=== PATIENT | female | born 1940 | race African-American/Black ===

== ENCOUNTER 2017-12-26 15:10 | Emergency (ER) | payer OTHER ==
[2017-12-26 15:42] VITALS: BP 162/71; PULSE 52; TEMP 98.4; BMI 32.2
--- NOTE | 2017-12-26 15:45 | PDOC ---
Rapid Medical Evaluation Chief Complaint: Weakness Time Seen by Provider: 12/26/17 15:42 Medical Evaluation: Allergies Allergy/AdvReac Type Severity Reaction Status Date / Time No Known Allergies Allergy Verified 12/26/17 15:37 Vital Signs Temp Pulse Resp BP Pulse Ox 98.4 F 52 L 18 162/71 100 12/26/17 15:39 12/26/17 15:39 12/26/17 15:39 12/26/17 15:39 12/26/17 15:39 12/26/17 15:43 The patient presents with a chief complaint of: Cough, feeling tired. Diagnosed with flu over a week ago. Has not followed up with PCP. Also c/o L arm pain. Thinks it may be gas I have performed a brief in-person evaluation of this patient; Pertinent physical exam findings: ambulatory, in no respiratory distress. CTAB. VSS, 100% O2 on room air I have ordered the following: CBC, CMP, Trop, CXR, EKG The patient will proceed to the ED for further evaluation.
== END 2017-12-26 16:06 | disposition left against medical advice (07) ==
LOC: JER 15:10
DX: R05 Cough (principal)
CPT/HCPCS: 99281-25

== ENCOUNTER 2019-01-07 17:28 | Emergency (ER) | payer OTHER ==
[2019-01-07 17:45] VITALS: TEMP 98.1; BMI 30.4
--- NOTE | 2019-01-07 17:49 | PDOC ---
History of Present Illness - General Chief Complaint: Blood Pressure Problem Stated Complaint: HYPERTENSION - History of Present Illness Initial Comments: 01/07/19 20:04 78 yo female with PMH HTN, Hypothyroidism, Hyperlipidemia, presents with complaint of elevated blood pressure of 200/90 and mild frontal headache. She states she was evaluated yesterday at another ER and was given a medication for her blood pressure. She states the pressure was checked again today and was high and with her headache she states that she felt the need for reevaluation. Denies any blurred vision, chest pain, dizziness, nausea, vomiting. Past History - Travel Traveled outside of the country in the last 30 days: No - Past Medical History Allergies/Adverse Reactions: Allergies Allergy/AdvReac Type Severity Reaction Status Date / Time No Known Allergies Allergy Verified 01/07/19 19:30 Home Medications: Ambulatory Orders Fluorometholone 1 drop OD DAILY 01/07/19 Levothyroxine [Synthroid -] 25 mcg PO DAILY 01/07/19 Nebivolol [Bystolic -] 5 mg PO DAILY 01/07/19 Soft Lens Rinse,Store Solution [Saline Sensitive Eyes] 360 ml MC ASDIR 01/07/19 COPD: No HTN: Yes Thyroid Disease: Yes - Surgical History Appendectomy: Yes - Suicide/Smoking/Psychosocial Hx Smoking History: Never smoked Have you smoked in the past 12 months: No Hx Alcohol Use: No Drug/Substance Use Hx: No Substance Use Type: None Review of Systems - Review of Systems Constitutional: No: Chills, Diaphoresis, Fever HEENTM: No: Blurred Vision Respiratory: No: Cough, Shortness of Breath Cardiac (ROS): No: Chest Pain, Edema, Irregular Heart Rate ABD/GI: No: Abdominal Distended, Constipated, Diarrhea : No: Burning, Dysuria, Discharge Musculoskeletal: No: Back Pain Neurological: Yes: Headache. No: Numbness, Paresthesia, Seizure, Weakness, Unsteady Gait *Physical Exam - Vital Signs Last Vital Signs Temp Pulse Resp BP Pulse Ox 98.1 F 46 L 18 200/90 H 98 01/07/19 17:44 01/07/19 17:44 01/07/19 17:44 01/07/19 17:44 01/07/19 17:44 - Physical Exam Comments: 01/07/19 20:08 GEN: A&O, no acute distress HEENT: PERRL, EOMI, moist mucus membranes NECK: Supple, no lymphadenopathy, no carotid bruits HEART: RRR, no murmurs or rubs LUNGS: CTA b/l, no rhonchi or wheezes NEURO: 5/5 strength throughout, sensation in tact throughout, CN II-XII in tact ABDOMEN: Soft, nontender, normoactive bowel sounds EXTREMITIES: 1+ nonpitting edema, 2+ pulses Moderate Sedation - Procedure Monitoring Vital Signs: Procedure Monitoring Vital Signs Temperature 98.1 F 01/07/19 17:44 Pulse Rate 46 L 01/07/19 17:44 Respiratory Rate 18 01/07/19 17:44 Blood Pressure 200/90 H 01/07/19 17:44 O2 Sat by Pulse Oximetry (%) 98 01/07/19 17:44 ED Treatment Course - LABORATORY CBC & Chemistry Diagram: 01/07/19 18:26 01/07/19 18:26 Medical Decision Making - Medical Decision Making 01/07/19 20:10 78 female with PMH as mentioned above and likely poorly controlled HTN presents with b.p. 200/90, and complaint of a mild frontal headache. Home med bystolic has been taken as prescribed, with current heart rate in 40's/ 50s will hold further beta maia/CCB. Will give clonidine patch 0.2 mg and reassess. 01/07/19 21:23 b.p. improved to 175/80's. Will plan for d/c to home with close follow up with Dr. Awad. will instruct patient to call in the AM for appointment as soon as possible and instruct her to leave the clonidine patch on for up to 7 days but to make sure she has an appointment prior to 7 days. *DC/Admit/Observation/Transfer Diagnosis at time of Disposition: Hypertensive emergency, no CHF - Discharge Dispostion Disposition: HOME Condition at time of disposition: Stable Decision to Admit order: No - Referrals Referrals: Jacque Awad MD [Staff Physician] - Call tomorrow - Patient Instructions Printed Discharge Instructions: DI for High Blood Pressure, How to Monitor Your Blood Pressure at Home Additional Instructions: You were seen in the Emergency department for very high blood pressure. You were given a clonidine patch, a medicine to bring down your blood pressure. You should leave this patch on for up to 7 days until you are able to see your primary doctor. You should call first thing in the morning to see your primary doctor as soon as possible for better control of your blood pressure. If you have any severe headaches, vision changes, or new onset weakness, you should return to the emergency department or be evaluated by your doctor. - Post Discharge Activity
[2019-01-07 18:34] LABS: HEMATOCRIT 36.6 % (32.4-45.2); HEMOGLOBIN 12.4 GM/dL (10.7-15.3); MCH 31.9 pg (25.7-33.7); MCHC 33.8 g/dl (32.0-36.0); MEAN CELL VOLUME 94.4 fl (80-96); MEAN PLT VOLUME 10.9 fl (7.5-11.1); PLATELET COUNT 136 K/MM3 (134-434); RBC 3.88 M/mm3 (3.60-5.2); RDW 14.3 % (11.6-15.6); WHITE BLOOD COUNT 4.6 K/mm3 (4.0-10.0)
--- NOTE | 2019-01-07 18:49 | PDOC ---
Attending Attestation - Resident Resident Name: Ilya Khoury - Medical Decision Making 78 years old with relatively new diagnosed hypertension in by systolic with difficulty controlling her pressure over the last few weeks was seen in emergency department yesterday was given 1 by mouth patella discharged home today with very mild frontal headache checks her blood pressure noted to be elevated Symptoms resolving at time of evaluation in the emergency department clonidine patch placed on patient labs sent EKG ordered patient sent to head CT Head CT with no acute pathology labs within normal limits blood pressure now improving 170 systolic Patient advised to call her primary care provider in the morning for follow-up and further blood pressure management Findings, the need for follow-up and strict return instructions discussed patient. <Jeevan Arcos - Last Filed: 01/07/19 21:06> - HPI HPI: CC: Elevated Blood Pressure and Headache The patient is an 78 year old female, with a significant PMH of hypertension, hypothyroid, and hyperlipidemia, who presents to the emergency department today complaining of increased blood pressure and headache for 2 days. Patient was recently diagnosed with hypertension by Dr. Awad (approximately 6 weeks ago), and is taking Nebivolol daily. Patient notes that headache is intermittently present behind both of her eyes. She does note that she uses prescriptive eye drops daily for glaucoma. Patient does report that she was at [facility] yesterday for elevated blood pressure, and was given a medication that she is unsure of and discharged. She endorses lower extremity edema, but notes this has been present for a while. The patient denies chest pain, shortness of breath, and dizziness. Denies generalized weakness and paresthesia. Denies fever, chills, nausea, vomit, diarrhea and constipation. Denies dysuria, frequency, urgency and hematuria. Allergies: NKA Past surgical history: Appendectomy Social history: No reported PCP: Dr. Jacque Awad 01/07/19 19:43 - Physicial Exam PE: Vitals: Triage Vital signs reviewed General Appearance: no acute distress, well nourished well developed, Head: Atraumatic, normocephalic Cardiac: Regular rate and rhythm, no murmurs, no rubs, no gallops, Lungs: Clear to auscultation bilateral, good air movement bilaterally, Extremities: Full range of motion to all extremities, no cyanosis, clubbing, or edema Skin: Warm and dry, no rashes or lesions, no petechiae Neuro: AOX3; Cranial Nerves 2-12 grossly c intact, Strength intact to all extremities, Sensation intact to all extremities, Psych: normal mood, normal affect 01/07/19 19:43 - Medical Decision Making 78 year old female with history of hypertension, hypothyroid, and hyperlipidemia , presents to the ED with elevated blood pressure and intermittent headache for 2 days. Plan: We will obtain lab work (cardiac enzymes), EKG, head CT, and administer Clonidine patch to patient. EXAM: CT head w/o IV contrast IMPRESSION: Mild chronic small vessel ischemic changes. Otherwise negative unenhanced CT of the brain. Reported by: Oscar Jean MD 01/07/2019 19:40 Documentation prepared by KINDRA Baltazar, acting as er medical technician for Jeevan Arcos MD. 01/07/19 21:18 <Annalisa Boudreaux - Last Filed: 01/07/19 21:54> Heart Score/ECG Review - Electrocardiogram EKG: Normal (EKG performed at 17:51:07 demonstrates rate of 45bpm, sinus bradycardia, axis equal to 55, 43, 47. Additional findings include: no T wave inversions, no ST elevations.) <Annalisa Boudreaux - Last Filed: 01/07/19 21:54>
[2019-01-07] MEDS ORDERED: cloNIDine-TTS 0.2 MG/24 HOURS PATCH.TDWK TD ONE (19:00)
[2019-01-07 19:52] LABS: ALBUMIN 3.6 g/dl (3.4-5.0); ALK PHOS 68 U/L (45-117); ANION GAP 5 MMOL/L (8-16); BILIRUBIN,TOTAL 0.5 mg/dL (0.2-1); BLOOD UREA NITROGEN 20 mg/dL (7-18); CALCIUM 8.2 mg/dL (8.5-10.1); CHLORIDE 103 mmol/L (98-107); CO2 30 mmol/L (21-32); CREATININE 1.1 mg/dL (0.55-1.3); GLUCOSE,RANDOM 86 mg/dL (74-106); SGPT/ALT 57 U/L (13-61); SODIUM 138 mmol/L (136-145)
[2019-01-07 19:53] LABS: POTASSIUM 4.9 mmol/L (3.5-5.1); SGOT/AST 39 U/L (15-37)
[2019-01-07 21:42] VITALS: BP 174/92; PULSE 56
--- NOTE | 2019-01-08 12:12 | EKG ---
Test Reason : Blood Pressure : / mmHG Vent. Rate : 045 BPM Atrial Rate : 045 BPM P-R Int : 198 ms QRS Dur : 082 ms QT Int : 502 ms P-R-T Axes : 055 043 047 degrees QTc Int : 434 ms SINUS BRADYCARDIA OTHERWISE NORMAL ECG NO PREVIOUS ECGS AVAILABLE Confirmed by SERAFIN MONTES MD ([id number]) on 01/08/2019 12:11:54 PM Referred By: Confirmed By:SERAFIN MONTES MD
== END 2019-01-07 22:06 | disposition home or self-care (01) ==
LOC: JER 17:28
DX: I16.0 Hypertensive urgency (principal); E78.5 Hyperlipidemia, unspecified; E03.9 Hypothyroidism, unspecified
CPT/HCPCS: 36415; 70450-TC; 80053; 82550; 82553; 84484; 85027; 93005; 93010; 99284-25

== ENCOUNTER 2019-02-22 12:58 | Inpatient (IN) | payer OTHER ==
--- NOTE | 2019-02-22 13:02 | PDOC ---
History of Present Illness - General Stated Complaint: Irregular Heart Beat - History of Present Illness Initial Comments: The pt is an 78F w/ a history of HTN and hypothyroidism who presents for evaluation of generalized weakness for 3 days. The pt was sent from clinic with a report of feeling weak and being hypertensive. The pt reports feeling generalized weakness for 3 days w/ no other identifiable associated symptoms. Pt denies taking her medications today. Denies recent illness/fevers, BINGHAM, vision changes, dizziness, lightheadedness, chest pain, SOB, abdominal pain, N/V/C/D PMH: HTN, hypothyroidism Meds: Bystolic, Synthroid Allergies: Denies SH: Denies x3 02/22/19 13:20 Past History - Past Medical History Allergies/Adverse Reactions: Allergies Allergy/AdvReac Type Severity Reaction Status Date / Time No Known Allergies Allergy Verified 02/22/19 13:11 Home Medications: Ambulatory Orders Levothyroxine [Synthroid -] 25 mcg PO DAILY 01/07/19 Nebivolol [Bystolic -] 5 mg PO DAILY 01/07/19 Aspirin 81 mg PO DAILY 02/22/19 Calcium Carbonate/Vitamin D3 [Calcium 600 + Vit D Tablet] 1 each PO DAILY Cholecalciferol (Vitamin D3) [Vitamin D3] 1,000 unit PO DAILY 02/22/19 Furosemide [Lasix -] 20 mg PO DAILY 02/22/19 Pitavastatin Calcium [Livalo] 4 mg PO DAILY 02/22/19 COPD: No HTN: Yes Thyroid Disease: Yes - Surgical History Appendectomy: Yes - Suicide/Smoking/Psychosocial Hx Smoking History: Never smoked Have you smoked in the past 12 months: No Hx Alcohol Use: No Drug/Substance Use Hx: No Substance Use Type: None Review of Systems - Review of Systems Able to Perform ROS?: Yes Comments:: GENERAL/CONSTITUTIONAL: No fever or chills HEAD, EYES, EARS, NOSE AND THROAT: No change in vision or hearing. No sore throat CARDIOVASCULAR: No chest pain or shortness of breath RESPIRATORY: Denies cough, hemoptysis GASTROINTESTINAL: No nausea, vomiting, diarrhea or constipation GENITOURINARY: No dysuria, frequency, or change in urination MUSCULOSKELETAL: No joint or muscle swelling or pain. No neck or back pain SKIN: No rash NEUROLOGIC: No headache, vertigo, loss of consciousness, or change in strength/ sensation ENDOCRINE: No increased thirst. No abnormal weight change HEMATOLOGIC/LYMPHATIC: No anemia, easy bleeding, or history of blood clots ALLERGIC/IMMUNOLOGIC: No hives or skin allergy 02/22/19 13:01 Is the patient limited Libyan proficient: No *Physical Exam - Vital Signs Vital Signs Temp Pulse Resp BP Pulse Ox 97.5 F L 43 L 20 198/62 H 98 02/22/19 13:11 02/22/19 13:11 02/22/19 13:11 02/22/19 13:11 02/22/19 13:11 02/22/19 13:32 - Physical Exam Comments: GENERAL: Awake, alert, and oriented to person/place/time, in no acute distress HEAD: No signs of trauma, normocephalic, atraumatic EYES: PERRLA, EOMI, sclera anicteric, conjunctiva clear ENT: Hearing grossly normal, nares patent, oropharynx clear without exudates. Moist mucosa LUNGS: No distress, speaks full sentences, clear to auscultation bilaterally HEART: Bradycardic w/ regular rhythm, normal S1 and S2, no murmurs appreciated, peripheral pulses normal and equal bilaterally ABDOMEN: Soft, nontender, normoactive bowel sounds. No guarding, no rebound EXTREMITIES: BLE 1+ edema to ankle; moves all extremities independently NEUROLOGICAL: Cranial nerves II through XII grossly intact. Normal speech, no focal sensorimotor deficits SKIN: Warm, Dry 02/22/19 13:01 ED Treatment Course - LABORATORY CBC & Chemistry Diagram: 02/22/19 13:03 02/22/19 13:03 Medical Decision Making - Medical Decision Making The pt is an 78F w/ a history of HTN and hypothyroidism who presents for evaluation of 3 days of generalized weakness and HTN from clinic ED Course Labs sent ECG w/ sinus bradycardia; HR 39; QTc 433; RI 172; No T-wave inversions or ST elevations/depressions 02/22/19 13:38 No leukocytosis No anemia 02/22/19 14:13 Lytes wnl LFTs wnl Trop I neg No BHAVIN 02/22/19 14:15 TSH wnl 02/22/19 14:22 Hydralazine 25mg PO once for HTN 02/22/19 14:33 Plan for admission for symptomatic bradycardia. At this time pt continues to be A&Ox3, w/o chest pain, SOB, BINGHAM, vision changes, and continues to endorse generalized weakness 02/22/19 14:38 *DC/Admit/Observation/Transfer Diagnosis at time of Disposition: Sinus bradycardia Hypertension Qualifiers: Hypertension type: unspecified Qualified Code(s): I10 - Essential (primary) hypertension Hypothyroidism Qualifiers: Hypothyroidism type: unspecified Qualified Code(s): E03.9 - Hypothyroidism, unspecified - Discharge Dispostion Condition at time of disposition: Good Decision to Admit order: Yes - Referrals Referrals: Jacque Awad MD [Primary Care Provider] - - Patient Instructions - Post Discharge Activity
[2019-02-22 13:42] LABS: BASO % 0.7 % (0-2.0); EOS % 0.7 % (0-4.5); HEMATOCRIT 37.3 % (32.4-45.2); LYMPH % 57.7 % (8-40); MCHC 32.1 g/dl (32.0-36.0); MEAN CELL VOLUME 93.4 fl (80-96); MEAN PLT VOLUME 9.4 fl (7.5-11.1); MONO % 11.4 % (3.8-10.2); NEUT % 29.5 % (42.8-82.8); PLATELET COUNT 106 K/MM3 (134-434); RDW 14.3 % (11.6-15.6); WHITE BLOOD COUNT 3.2 K/mm3 (4.0-10.0)
[2019-02-22 14:15] LABS: ALBUMIN 3.2 g/dl (3.4-5.0); ALK PHOS 54 U/L (45-117); ANION GAP 5 MMOL/L (8-16); BILIRUBIN,TOTAL 0.4 mg/dL (0.2-1); BLOOD UREA NITROGEN 21 mg/dL (7-18); CHLORIDE 104 mmol/L (98-107); CO2 30 mmol/L (21-32); GLUCOSE,RANDOM 91 mg/dL (74-106); POTASSIUM 3.5 mmol/L (3.5-5.1); SGOT/AST 23 U/L (15-37); SGPT/ALT 26 U/L (13-61); SODIUM 140 mmol/L (136-145); TOT PROT 6.4 g/dl (6.4-8.2)
[2019-02-22] MEDS ORDERED: hydrALAZINE HCL 25 MG TABLET (FP) PO ONE (14:29)
--- NOTE | 2019-02-22 14:45 | PDOC ---
Attending Attestation - Resident Resident Name: Robson Olvera - ED Attending Attestation I have performed the following: I have examined & evaluated the patient, The case was reviewed & discussed with the resident, I agree w/resident's findings & plan - HPI HPI: 02/22/19 14:47 78 year old female, with past medical history of HTN, hypothyroidism, presenting with generalized malaise/weakness x 3 days. No cp or sob, dizziness, visual disturbances. No recent illnesses. 02/22/19 15:05 - Physicial Exam PE: 02/22/19 14:47 NAD, well appearing, EOMI, PERRL, nl conjunctiva, anicteric; neck supple. lungs clear, +bradycardic, no murmurs. abdomen soft nontender. FISCHER x4, no focal neuro deficits. +bilateral pitting peripheral edema. normal color for ethnicity, cool and dry to palp. no rash - Medical Decision Making 02/22/19 14:52 See HPI for details Vital signs reviewed, +bradycardia. hypertensive, mental status normal. DDx. arrhythmia, sinus bradycardia, SA node dysfunction, ACS, metabolic/ electrolyte derangements, anemia, infection, lyme/carditis. , tick borne illness. Prior notes reviewed, including admissions, discharges and consultations. laboratory results and imaging reviewed, basic labs and lytes wnl, notable for mild leukopenia with lymphocytic shift of unclear etiology. no fever or systemic sx. thyroid levels normal CXR_rt hemidiaphragm, effusion vs atelectasis; no cp or sob sx, unlikely infectious. Cardiac panel_neg trop EKG sinus bradycardia at 39 bpm, no interval abnormalities, narrow QRS, ST and T wave segments and morphology normal. ED course - sinus tele on monitor. no symptoms - lyme/tick panel, babasia workup, for possible etiology of lymphocytic shift and weakness/ bradycardia - avoid BB, on bystolic - cards cs with Dr Jimenez. admit tele for bradycardia, admit to Dr Awad service. 02/22/19 15:06 Heart Score/ECG Review #1 ECG reviewed & interpreted by me at: 13:10 General ECG Interpretation: Sinus Rhythm, Normal Intervals Compared to previous ECG there are: Changes noted 02/22/19 14:57 EKG sinus bradycardia at 39 bpm, no interval abnormalities, narrow QRS, ST and T wave segments and morphology normal.
[2019-02-22] MEDS ORDERED: hydrALAZINE HCL 25 MG TABLET (FP) ONE (14:51)
--- NOTE | 2019-02-22 15:38 | CON.CARD ---
Consult Consult Specialty:: Cardiology - History of Present Illness Chief Complaint: Fatigue History of Present Illness: 78 F with hypothyroidism and HTN. 3 weeks of cough, congestion developed. has noted fatigue, weakness without dizziness, dyspnea of syncope and she went to her PCP and noted to have sinus bradycardia. She takes symthroid and bystolic which are not new medications. Currently comfortable in the ER. Telemetry shows sinus abel with HR 40. - History Source History Provided By: Patient Limitations to Obtaining History: No Limitations - Past Medical History Cardio/Vascular: Yes: HTN - Alcohol/Substance Use Hx Alcohol Use: No - Smoking History Smoking history: Never smoked Have you smoked in the past 12 months: No Home Medications - Allergies Allergies/Adverse Reactions: Allergies Allergy/AdvReac Type Severity Reaction Status Date / Time No Known Allergies Allergy Verified 02/22/19 13:11 - Home Medications Home Medications: Ambulatory Orders Levothyroxine [Synthroid -] 25 mcg PO DAILY 01/07/19 Nebivolol [Bystolic -] 5 mg PO DAILY 01/07/19 Aspirin 81 mg PO DAILY 02/22/19 Calcium Carbonate/Vitamin D3 [Calcium 600 + Vit D Tablet] 1 each PO DAILY Cholecalciferol (Vitamin D3) [Vitamin D3] 1,000 unit PO DAILY 02/22/19 Furosemide [Lasix -] 20 mg PO DAILY 02/22/19 Pitavastatin Calcium [Livalo] 4 mg PO DAILY 02/22/19 Review of Systems - Review of Systems Constitutional: reports: Weakness Eyes: reports: No Symptoms HENT: reports: No Symptoms Cardiovascular: denies: Chest Pain, Palpitations, Shortness of Breath Respiratory: reports: Cough. denies: SOB on Exertion Gastrointestinal: denies: Abdominal Pain, Bloating Neurological: reports: No Symptoms Endocrine: reports: No Symptoms Vital Signs: Vital Signs Temperature 97.5 F L 02/22/19 13:11 Pulse Rate 44 L 02/22/19 14:18 Respiratory Rate 20 02/22/19 13:11 Blood Pressure 179/70 H 02/22/19 14:56 O2 Sat by Pulse Oximetry (%) 98 02/22/19 13:11 Constitutional: Yes: Well Nourished, No Distress, Calm Eyes: Yes: Conjunctiva Clear, EOM Intact HENT: Yes: Atraumatic, Normocephalic Neck: Yes: Supple, Trachea Midline Respiratory: Yes: Regular, CTA Bilaterally Gastrointestinal: Yes: Normal Bowel Sounds, Soft Cardiovascular: Yes: Regular Rate and Rhythm, Bradycardia JVD: No Carotid Bruit: No PMI: Non-Displaced Heart Sounds: Yes: S1, S2 Murmur: No: Systolic Murmur, Diastolic Murmur Edema: No - Other Data Labs, Other Data: CBC, BMP 02/22/19 13:03 02/22/19 13:03 Troponin, BNP 02/22/19 13:03 Troponin I < 0.02 Troponin, BNP 02/22/19 13:03 Troponin I < 0.02 Laboratory Tests 02/22/19 13:03 TSH 1.76 Free T4 0.77 Sinus bradycardia, normal axis and interval. Problem List - Problems (1) Sinus bradycardia Code(s): R00.1 - BRADYCARDIA, UNSPECIFIED Assessment/Plan 78 F HTN hypothyroid with 3 weeks of upper repiratory symptoms. 3 days of fatigue. ECG shows marked sinus bradycardia. With bedside leg raise exercises HR promptly increased to 60 BPM. Low suspicion that resting bradycardia is resulting in these symptoms, however will monitor on telemetry for 24 hours. Discontinue Bystolic and avoid any further AV johnathan blocking agents. Check echocardiogram If she needs antihypertensive therapy, use alternate medications-ARB/Amlodipine/ nifidipine.
--- NOTE | 2019-02-22 15:58 | EKG ---
Test Reason : Blood Pressure : / mmHG Vent. Rate : 039 BPM Atrial Rate : 039 BPM P-R Int : 172 ms QRS Dur : 066 ms QT Int : 538 ms P-R-T Axes : 054 032 048 degrees QTc Int : 433 ms MARKED SINUS BRADYCARDIA ABNORMAL ECG WHEN COMPARED WITH ECG OF 07-JAN-2019 17:51, NO SIGNIFICANT CHANGE WAS FOUND Confirmed by SANDEEP COTO MD ([id number]) on 02/22/2019 3:58:25 PM Referred By: Confirmed By:SANDEEP COTO MD
--- NOTE | 2019-02-22 16:34 | HP ---
Admitting History and Physical - Admission Chief Complaint: came in from PCP office for bradycardia History of Present Illness: 78 F with hypothyroidism and HTN. and 3 weeks of cough, congestion and then went to her PCP office noticed to have bradycardia and was sent to the ER. She takes synthroid and bystolic which are not new medications. Currently comfortable in the ER. Telemetry shows sinus abel with HR 40. History Source: Patient, Medical Record - Past Medical History Cardiovascular: Yes: HTN - Smoking History Smoking history: Never smoked Have you smoked in the past 12 months: No - Alcohol/Substance Use Hx Alcohol Use: No Home Medications - Allergies Allergies/Adverse Reactions: Allergies Allergy/AdvReac Type Severity Reaction Status Date / Time No Known Allergies Allergy Verified 02/22/19 13:11 - Home Medications Home Medications: Ambulatory Orders Levothyroxine [Synthroid -] 25 mcg PO DAILY 01/07/19 Nebivolol [Bystolic -] 5 mg PO DAILY 01/07/19 Aspirin 81 mg PO DAILY 02/22/19 Calcium Carbonate/Vitamin D3 [Calcium 600 + Vit D Tablet] 1 each PO DAILY Cholecalciferol (Vitamin D3) [Vitamin D3] 1,000 unit PO DAILY 02/22/19 Furosemide [Lasix -] 20 mg PO DAILY 02/22/19 Pitavastatin Calcium [Livalo] 4 mg PO DAILY 02/22/19 Review of Systems - Review of Systems Respiratory: reports: No Symptoms Gastrointestinal: reports: No Symptoms Genitourinary: reports: No Symptoms Physical Examination Vital Signs: Vital Signs Temperature 97.5 F L 02/22/19 13:11 Pulse Rate 44 L 02/22/19 14:18 Respiratory Rate 20 02/22/19 13:11 Blood Pressure 179/70 H 02/22/19 14:56 O2 Sat by Pulse Oximetry (%) 98 02/22/19 13:11 Constitutional: Yes: Calm Cardiovascular: Yes: Regular Rate and Rhythm, S1, S2 Respiratory: Yes: CTA Bilaterally Gastrointestinal: Yes: Normal Bowel Sounds, Soft Edema: No Labs: CBC, BMP 02/22/19 13:03 02/22/19 13:03 Imaging - Results X-ray: Report Reviewed Problem List - Problems (1) Sinus bradycardia Assessment/Plan: observation telemetry echo cardiology consult noted Code(s): R00.1 - BRADYCARDIA, UNSPECIFIED (2) Hypertension Assessment/Plan: stop all AV johnathan blocking agents hydralazine given inc bun will not use diuretics Code(s): I10 - ESSENTIAL (PRIMARY) HYPERTENSION Qualifiers: Hypertension type: unspecified Qualified Code(s): I10 - Essential (primary ) hypertension (3) Hypothyroidism Assessment/Plan: tsh is ok synthroid Code(s): E03.9 - HYPOTHYROIDISM, UNSPECIFIED Qualifiers: Hypothyroidism type: unspecified Qualified Code(s): E03.9 - Hypothyroidism , unspecified
[2019-02-22 18:44] VITALS: BMI 30.7
[2019-02-22] MEDS: hydrALAZINE HCL 25 MG TABLET (FP) PO SCH (21:41)
[2019-02-22] MEDS: HEPARIN NA (PORCINE) 5,000 UNITS/ML 1ML VIAL SQ SCH (21:41)
[2019-02-22] MEDS: ATORVASTATIN CA 20 MG TABLET (FP) PO SCH (21:41)
[2019-02-23] MEDS: LEVOTHYROXINE NA 25 MCG TABLET (FP) PO SCH (06:14)
[2019-02-23 07:48] LABS: INR 0.93 (0.83-1.09)
[2019-02-23 07:50] LABS: ACTIVATED PTT 47.1 SECONDS (25.2-36.5)
[2019-02-23 08:03] LABS: HEMATOCRIT 33.9 % (32.4-45.2); HEMOGLOBIN 11.1 GM/dL (10.7-15.3); MCH 30.2 pg (25.7-33.7); MCHC 32.7 g/dl (32.0-36.0); MEAN CELL VOLUME 92.4 fl (80-96); MEAN PLT VOLUME 9.9 fl (7.5-11.1); PLATELET COUNT 104 K/MM3 (134-434); RBC 3.67 M/mm3 (3.60-5.2); RDW 14.1 % (11.6-15.6); WHITE BLOOD COUNT 2.8 K/mm3 (4.0-10.0)
[2019-02-23 08:13] LABS: ALBUMIN 2.8 g/dl (3.4-5.0); ALK PHOS 44 U/L (45-117); ANION GAP 5 MMOL/L (8-16); BILIRUBIN,TOTAL 0.4 mg/dL (0.2-1); BLOOD UREA NITROGEN 15 mg/dL (7-18); CALCIUM 7.9 mg/dL (8.5-10.1); CHLORIDE 106 mmol/L (98-107); CO2 31 mmol/L (21-32); CREATININE 0.8 mg/dL (0.55-1.3); GLUCOSE,RANDOM 85 mg/dL (74-106); MAGNESIUM 2.4 mg/dL (1.8-2.4); PHOSPHOROUS 2.2 mg/dL (2.5-4.9); POTASSIUM 3.8 mmol/L (3.5-5.1); SGOT/AST 18 U/L (15-37); SGPT/ALT 22 U/L (13-61); SODIUM 142 mmol/L (136-145); TOT PROT 5.6 g/dl (6.4-8.2)
--- NOTE | 2019-02-23 09:44 | PN ---
Progress Note, Physician - Current Medication List Current Medications: Active Medications Amlodipine Besylate (Norvasc -) 10 mg PO DAILY [facility] Atorvastatin Calcium (Lipitor -) 20 mg PO HS [facility] Last Admin: 02/22/19 21:41 Dose: 20 mg Heparin Sodium (Porcine) (Heparin -) 5,000 unit SQ BID [facility] Last Admin: 02/22/19 21:41 Dose: 5,000 unit Hydralazine HCl (Apresoline -) 25 mg PO BID [facility] Last Admin: 02/22/19 21:41 Dose: 25 mg Levothyroxine Sodium (Synthroid -) 25 mcg PO DAILY@0700 [facility] Last Admin: 02/23/19 06:14 Dose: 25 mcg - Objective Vital Signs: Vital Signs Temperature 98.0 F 02/23/19 01:00 Pulse Rate 51 L 02/23/19 09:00 Respiratory Rate 18 02/23/19 09:00 Blood Pressure 175/70 H 02/23/19 09:00 O2 Sat by Pulse Oximetry (%) 97 02/22/19 17:10 Cardiovascular: Yes: Bradycardia, S1, S2 Respiratory: Yes: Regular, CTA Bilaterally Gastrointestinal: Yes: Normal Bowel Sounds, Soft Labs: CBC, BMP 02/23/19 06:00 02/23/19 06:00 INR, PTT INR 0.93 (0.83-1.09) 02/23/19 06:00 Problem List - Problems (1) Sinus bradycardia Assessment/Plan: Improved off b-blockers -monitor on tele -echo Code(s): R00.1 - BRADYCARDIA, UNSPECIFIED (2) Pancytopenia Assessment/Plan: Laboratory Tests 02/22/19 02/23/19 13:03 06:00 WBC 3.2 L 2.8 L Plt Count 106 L D 104 L Neutrophils % (Manual) 37.7 L Monocytes % (Manual) 13 H check previous hem consult Code(s): D61.818 - OTHER PANCYTOPENIA (3) Hypertension Assessment/Plan: Vital Signs Period Temp Pulse Resp BP Sys/Hassan Pulse Ox Last 24 Hr 97.5 F-98.2 F 43-57 18-20 175-207/62-90 97-98 Increase hydralazine 50 bid amlodipine 10 Code(s): I10 - ESSENTIAL (PRIMARY) HYPERTENSION Qualifiers: Hypertension type: unspecified Qualified Code(s): I10 - Essential (primary ) hypertension (4) Hypothyroidism Assessment/Plan: -Tsh nl Code(s): E03.9 - HYPOTHYROIDISM, UNSPECIFIED Qualifiers: Hypothyroidism type: unspecified Qualified Code(s): E03.9 - Hypothyroidism , unspecified (5) Weakness Assessment/Plan: monito Code(s): R53.1 - WEAKNESS
[2019-02-23] MEDS: hydrALAZINE HCL 25 MG TABLET (FP) PO SCH (10:44)
[2019-02-23] MEDS: amLODIPine BESYLATE 10 MG TABLET (FP) PO SCH (10:44)
[2019-02-23] MEDS: HEPARIN NA (PORCINE) 5,000 UNITS/ML 1ML VIAL SQ SCH ×2 (10:44→22:14)
--- NOTE | 2019-02-23 11:02 | PN ---
Progress Note (short form) - Note Progress Note: PULMONARY CONSULTATION DICTATED 02/23/19 IMP SYMTOMATIC BRADYCARDIA URI ELEVATED R IRMA-DIAPHRAGM HTN HYPOTHYROID THROMBOCYTOPENIA PLAN BP MEDS PER CARDIOLOGY TELEMETRY MONITORING CHEST CT MONITOR BP MONITOR CBC,PLT CT DR REID Problem List - Problems (1) Weakness Code(s): R53.1 - WEAKNESS (2) Hypertension Code(s): I10 - ESSENTIAL (PRIMARY) HYPERTENSION Qualifiers: Hypertension type: unspecified Qualified Code(s): I10 - Essential (primary ) hypertension (3) Hypothyroidism Code(s): E03.9 - HYPOTHYROIDISM, UNSPECIFIED Qualifiers: Hypothyroidism type: unspecified Qualified Code(s): E03.9 - Hypothyroidism , unspecified (4) Sinus bradycardia Code(s): R00.1 - BRADYCARDIA, UNSPECIFIED (5) URI (upper respiratory infection) Code(s): J06.9 - ACUTE UPPER RESPIRATORY INFECTION, UNSPECIFIED (6) Elevated hemidiaphragm Code(s): J98.6 - DISORDERS OF DIAPHRAGM (7) Thrombocytopenia Code(s): D69.6 - THROMBOCYTOPENIA, UNSPECIFIED
[2019-02-23 11:37] LABS: ANISOCYTOSIS 0; MACROCYTOSIS 1+; OVALOCYTE 1+; PLATELET ESTIMATE DECREASED
--- NOTE | 2019-02-23 12:58 | ECHO ---
Name: GREGG TRENT Exam:Adult Echocardiogram Study Date: 02/23/2019 09:11 AM Age: 78 yrs Reason For Study: WALL MOTION ABNORMALITY Height: 57 in Weight: 148 lb BSA: 1.6 m2 MMode/2D Measurements & Calculations IVSd: 0.76 cm Ao root diam: 2.6 cm LVIDd: 4.3 cm LA dimension: 3.2 cm LVIDs: 2.7 cm LVPWd: 0.75 cm EDV(Teich): 82.0 ml LVOT diam: 1.8 cm ESV(Teich): 27.3 ml TAPSE: 2.3 cm Doppler Measurements & Calculations MV E max jhonny: 71.7 cm/sec Ao V2 max: 159.0 cm/sec MV A max jhonny: 24.7 cm/sec Ao max P.1 mmHg MV E/A: 2.9 Ao V2 mean: 103.7 cm/sec MV dec time: 0.22 sec Ao mean P.8 mmHg Ao V2 VTI: 36.9 cm DONALD(I,D): 1.8 cm2 DONALD(V,D): 1.8 cm2 LV V1 max P.2 mmHg MR max jhonny: 427.2 cm/sec LV V1 mean P.6 mmHg MR max P.7 mmHg LV V1 max: 114.5 cm/sec LV V1 mean: 75.6 cm/sec LV V1 VTI: 26.1 cm SV(LVOT): 66.2 ml TR max jhonny: 230.9 cm/sec TR max P.7 mmHg Med Peak E' Jhonny: 5.1 cm/sec Med E/e': 14.2 Lat Peak E' Jhonny: 4.7 cm/sec Lat E/e': 15.3 Procedure A two-dimensional transthoracic echocardiogram with color flow and Doppler was performed. Left Ventricle The left ventricular size, thickness and function are normal. The left ventricular ejection fraction is normal. Left Ventricular Filling pattern is normal for age. The left ventricular wall motion is jordy l. Right Ventricle The right ventricle is normal in size and function. Atria Normal left and right atrial size and function. Mitral Valve There is mild mitral valve thickening. There is no mitral valve stenosis. There is moderate mitral regurgitation. Tricuspid Valve There is mild tricuspid valve thickening. There is no tricuspid stenosis. There is severe tricuspid regurgitation. Right ventricular systolic pressure is normal. Aortic Valve The aortic valve is not well visualized. No hemodynamically significant valvular aortic stenosis. No aortic regurgitation is present. Pulmonic Valve The pulmonic valve is not well visualized. There is no pulmonic valvular stenosis. Mild pulmonic valv ular regurgitation. Great Vessels The aortic root is normal size. Pericardium/Pleura There is no pericardial effusion. Interpretation Summary The left ventricular size, thickness and function are normal The left ventricular ejection fraction is normal. The left ventricular wall motion is normal. There is moderate mitral regurgitation. There is severe tricuspid regurgitation. Right ventricular systolic pressure is normal. Left Ventricular Filling pattern is normal for age. MD Min Ledezma 02/23/2019 12:57 PM
--- NOTE | 2019-02-23 13:35 | CONSULT ---
Consultation: HEMATOLOGY/ONCOLOGY CONSULTATION CONSULT REQUEST: We have been asked to medically evaluate this patient for thrombocytopenia HISTORY OF PRESENT ILLNESS: 78 year old pleasant female with a history of hypertension and hypothyroidism presented to the hospital for 3 days of malaise and weakness. Reports it started after a particularly strenuous day at [employer], where she reports she felt exhausted after doing too much activity. Reports that after this incident she continued to feel tired and never fully recovered to a baseline level of energy. Reports she takes medication for hypothyroidism but occasionally misses doses. Reports that this is the first time she is feeling this way. In the ED, patient was found to be hypertensive and bradycardic. Currently denies chest pain, shortness of breath, nausea, vomiting, diarrhea, fevers, chills. Denies recent travel or sick contacts. Smoking: never Alcohol: never Drugs: never Cancer hx: none Family Hx: patient has 2 sons, one with colon cancer and stroke, other healthy. 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 Formerly from [facility], last visited march of 2018 REVIEW OF SYSTEMS: CONSTITUTIONAL: generalized weakness Absent: fever, chills, diaphoresis, malaise, loss of appetite, weight change HEENT: Absent: rhinorrhea, nasal congestion, throat pain, throat swelling, difficulty swallowing, mouth swelling, ear pain, eye pain, visual changes CARDIOVASCULAR: Absent: chest pain, syncope, palpitations, irregular heart rate, lightheadedness , peripheral edema RESPIRATORY: Absent: cough, shortness of breath, dyspnea with exertion, orthopnea, wheezing, stridor, hemoptysis GASTROINTESTINAL: Absent: abdominal pain, abdominal distension, nausea, vomiting, diarrhea, constipation, melena, hematochezia GENITOURINARY: Absent: dysuria, frequency, urgency, hesitancy, hematuria, flank pain, genital pain MUSCULOSKELETAL: Absent: myalgia, arthralgia, joint swelling, back pain, neck pain SKIN: Absent: rash, itching, pallor HEMATOLOGIC/IMMUNOLOGIC: Absent: easy bleeding, easy bruising, lymphadenopathy, frequent infections ENDOCRINE: Absent: unexplained weight gain, unexplained weight loss, heat intolerance, cold intolerance NEUROLOGIC: Absent: headache, focal weakness or paresthesias, dizziness, unsteady gait, seizure, mental status changes, bladder or bowel incontinence PSYCHIATRIC: Absent: anxiety, depression, suicidal or homicidal ideation, hallucinations. PHYSICAL EXAMINATION Vital Signs - 24 hr 02/22/19 02/22/19 02/22/19 14:18 14:56 17:10 Temperature Pulse Rate Pulse Rate [ 44 L 54 L Apical] Respiratory 18 Rate Blood Pressure Blood Pressure 179/70 H 207/77 H [Left Arm] O2 Sat by Pulse 97 Oximetry (%) 02/22/19 02/22/19 02/23/19 18:29 21:36 01:00 Temperature 98.2 F 97.7 F 98.0 F Pulse Rate 52 L 50 L 57 L Pulse Rate [ Apical] Respiratory 18 18 18 Rate Blood Pressure 182/78 H 190/89 H 190/72 H Blood Pressure [Left Arm] O2 Sat by Pulse Oximetry (%) 02/23/19 02/23/19 03:45 09:00 Temperature Pulse Rate 54 L 51 L Pulse Rate [ Apical] Respiratory 18 18 Rate Blood Pressure 180/90 H 175/70 H Blood Pressure [Left Arm] O2 Sat by Pulse Oximetry (%) GENERAL: A&Ox3, no acute distress EYES: PERRLA, EOMI ENT: Moist mucus membranes NECK: No JVD, no lymphadenopathy LUNGS: CTA, no wheezes HEART: bradycardic, no murmurs BREAST: no masses or nodules palpated ABDOMEN: Soft, nontender, BS present MUSCULOSKELETAL: No CVA Tenderness EXTREMITIES: 2+ pulses, 1+ pitting edema bilaterally NEUROLOGICAL: Cranial nerves II-XII intact. No focal deficits Laboratory Results - last 24 hr 02/22/19 02/22/19 02/22/19 13:03 13:03 13:03 WBC 3.2 L RBC 4.00 Hgb 12.0 Hct 37.3 MCV 93.4 MCH 30.0 MCHC 32.1 RDW 14.3 Plt Count 106 L D MPV 9.4 D Absolute Neuts (auto) 0.9 L Neutrophils % 29.5 L Neutrophils % (Manual) Band Neutrophils % Lymphocytes % 57.7 H Lymphocytes % (Manual) Monocytes % 11.4 H Monocytes % (Manual) Eosinophils % 0.7 Eosinophils % (Manual) Basophils % 0.7 Basophils % (Manual) Myelocytes % (Man) Promyelocytes % (Man) Blast Cells % (Manual) Nucleated RBC % 0 Metamyelocytes Manual Slide Review Cancelled Hypochromia Platelet Estimate Polychromasia Poikilocytosis Anisocytosis Microcytosis Macrocytosis Ovalocytes PT with INR INR PTT (Actin FS) Sodium 140 Potassium 3.5 Chloride 104 Carbon Dioxide 30 Anion Gap 5 L BUN 21 H Creatinine 1.0 Creat Clearance w eGFR 53.35 Random Glucose 91 Calcium 8.0 L Phosphorus Magnesium Total Bilirubin 0.4 AST 23 ALT 26 Alkaline Phosphatase 54 Troponin I < 0.02 Total Protein 6.4 Albumin 3.2 L Vitamin B12 TSH 1.76 Free T4 0.77 02/23/19 02/23/19 02/23/19 06:00 06:00 06:00 WBC 2.8 L RBC 3.67 Hgb 11.1 Hct 33.9 MCV 92.4 MCH 30.2 MCHC 32.7 RDW 14.1 Plt Count 104 L MPV 9.9 Absolute Neuts (auto) Neutrophils % Neutrophils % (Manual) 37.7 L Band Neutrophils % 1.0 Lymphocytes % Lymphocytes % (Manual) 35.7 Monocytes % Monocytes % (Manual) 13 H Eosinophils % Eosinophils % (Manual) 3.1 Basophils % Basophils % (Manual) 0.0 Myelocytes % (Man) 0 Promyelocytes % (Man) 0 Blast Cells % (Manual) 0 Nucleated RBC % 0 Metamyelocytes 0 Manual Slide Review Hypochromia 0 Platelet Estimate Decreased Polychromasia 0 Poikilocytosis 0 Anisocytosis 0 Microcytosis 0 Macrocytosis 1+ Ovalocytes 1+ PT with INR 11.00 INR 0.93 PTT (Actin FS) 47.1 H Sodium 142 Potassium 3.8 Chloride 106 Carbon Dioxide 31 Anion Gap 5 L BUN 15 Creatinine 0.8 Creat Clearance w eGFR 69.02 Random Glucose 85 Calcium 7.9 L Phosphorus 2.2 L Magnesium 2.4 Total Bilirubin 0.4 AST 18 ALT 22 Alkaline Phosphatase 44 L Troponin I Total Protein 5.6 L Albumin 2.8 L Vitamin B12 524 TSH Free T4 Active Medications Generic Name Dose Route Start Last Admin Trade Name Freq PRN Reason Stop Dose Admin Amlodipine Besylate 10 mg 02/23/19 10:00 02/23/19 10:44 Norvasc - PO 10 mg DAILY [facility] Administration Atorvastatin Calcium 20 mg 02/22/19 22:00 02/22/19 21:41 Lipitor - PO 20 mg HS [facility] Administration Heparin Sodium (Porcine) 5,000 unit 02/22/19 22:00 02/23/19 10:44 Heparin - SQ 5,000 unit BID [facility] Administration Hydralazine HCl 50 mg 02/23/19 12:36 Apresoline - PO BID [facility] Levothyroxine Sodium 25 mcg 02/23/19 07:00 02/23/19 06:14 Synthroid - PO 25 mcg DAILY@0700 [facility] Administration Current Medications Amlodipine Besylate (Norvasc -) 10 mg PO DAILY [facility] Last Admin: 02/23/19 10:44 Dose: 10 mg Atorvastatin Calcium (Lipitor -) 20 mg PO HS [facility] Last Admin: 02/22/19 21:41 Dose: 20 mg Heparin Sodium (Porcine) (Heparin -) 5,000 unit SQ BID [facility] Last Admin: 02/23/19 10:44 Dose: 5,000 unit Hydralazine HCl (Apresoline -) 50 mg PO BID [facility] Levothyroxine Sodium (Synthroid -) 25 mcg PO DAILY@0700 [facility] Last Admin: 02/23/19 06:14 Dose: 25 mcg ASSESSMENT/PLAN: 78 year old pleasant female with a history of hypertension and hypothyroidism presented to the hospital for 3 days of malaise and weakness. We are called to evaluate thrombocytopenia. Pancytopenia: patient has a reduced white count, platelets of 104 after presenting with 134, and mild anemia. There could be numerous etiologies given that patient had normal platelet count 2 months ago -will look at blood smear -ordered POLY, reticulocytes -Ultrasound liver/spleen for congestive hypersplenism, which could result in decreased platelets -heparin antibodies ordered, although lower on differential -also consider effect of hydralazine in causing pancytopenia, which is the reason we are ordering POLY, consider switching to alternative antihypertensive -as per cardiology, "If she needs antihypertensive therapy, use alternate medications-ARB/Amlodipine/nifidipine." -consider testing HIV -patient is now neutropenic -echo - severe tricuspid regurgitation -B12/folate ordered Alf Schneider, PGY2 Discussed with Dr. Hollie Berumen: We will continue to follow the patient. Thank you for this consultative opportunity. Visit type - Emergency Visit Emergency Visit: No - New Patient This patient is new to me today: Yes Date on this admission: 02/23/19 - Critical Care Critical Care patient: No
--- NOTE | 2019-02-23 13:36 | CONS ---
DATE OF CONSULTATION: 02/23/2019 REFERRING PHYSICIAN: Ethan Bae MD HISTORY OF PRESENT ILLNESS: The patient is an 78-year-old black female with a past medical history of hypertension, hypothyroidism, admitted to [facility] with complaint of fatigue, weakness, dizziness, syncope, with shortness of breath. Patient went to her primary care doctors office, was noted to be bradycardic. She was transferred to [facility] with the above, noted initially to be bradycardic with a rate of 39-40. Patient was evaluated by for Cardiology who felt that bradycardia was most likely secondary to beta-blockers, which were discontinued. Patient states that for approximately 3 weeks prior to admission, she started developing a cough, chest congestion, and fatigue. She also states that she denied any fever or chills. She states that cough is productive of yellowish sputum. Denies any shortness of breath, hemoptysis, weight loss, or night sweats. There is no history of COPD or asthma. SOCIAL HISTORY: She is a nonsmoker. She is a retired RN. There is no history of recent travel. PAST MEDICAL HISTORY: Again includes hypertension, hypothyroidism. REVIEW OF SYSTEMS: Positive for weakness. Positive for cough. No chest pain, no palpitations, no chest congestion, no hemoptysis, no abdominal pain. Positive mild lower extremity edema. CURRENT MEDICATIONS: Include Norvasc, Apresoline, Lipitor, and Synthroid. PHYSICAL EXAMINATION: General: The patient is an elderly black female, awake, alert, in no acute distress. Vital signs: She is currently afebrile, heart rate is 51, blood pressure is 175/70, respiratory rate 18, O2 saturation is 97% on room air. HEENT: Head is normocephalic, atraumatic. Neck: Supple. Heart: Bradycardic with S1, S2. Chest: Clear. Abdomen: Soft. Bowel sounds positive. Extremities: No cyanosis or edema. LABORATORIES: WBC is 2.8, hemoglobin 11.1, hematocrit 33.9, platelet count of 104,000, thrombocytopenia. INR is 0.93. Chemistries: BUN 15, creatinine 0.8, phosphorus 2.2. Chest x-ray with elevated right hemidiaphragm, and some fluid atelectasis to right base and mammillation of the left hemidiaphragm. IMPRESSION: 1. Weakness, fatigue likely secondary to symptomatic bradycardia. 2. Recent upper respiratory infection. 3. Elevated right hemidiaphragm likely chronic. No prior x-rays for comparison. 4. Hypertension. 5. Hypothyroidism. 6. Thrombocytopenia. PLAN: Continue blood pressure medications, hypertensive medications as per Cardiology, continue telemetry monitoring, obtain chest CT to further evaluate right hemidiaphragm, monitor blood pressure, monitor CBC with platelets. ERICA REID M.D. [id number]
--- NOTE | 2019-02-23 14:32 | PN ---
Progress Note, Physician Chief Complaint: cardiology FU Telem NSR no arrhythmia or pauses With Ambulation, HR improves to 80 BPM History of Present Illness: 78 F with hypothyroidism and HTN. 3 weeks of cough, congestion developed. has noted fatigue, weakness without dizziness, dyspnea of syncope and she went to her PCP and noted to have sinus bradycardia. She takes symthroid and bystolic which are not new medications. Currently comfortable in the ER. Telemetry shows sinus abel with HR 40. - Current Medication List Current Medications: Active Medications Amlodipine Besylate (Norvasc -) 10 mg PO DAILY [facility] Last Admin: 02/23/19 10:44 Dose: 10 mg Atorvastatin Calcium (Lipitor -) 20 mg PO HS [facility] Last Admin: 02/22/19 21:41 Dose: 20 mg Heparin Sodium (Porcine) (Heparin -) 5,000 unit SQ BID [facility] Last Admin: 02/23/19 10:44 Dose: 5,000 unit Hydralazine HCl (Apresoline -) 50 mg PO BID [facility] Levothyroxine Sodium (Synthroid -) 25 mcg PO DAILY@0700 [facility] Last Admin: 02/23/19 06:14 Dose: 25 mcg - Objective Vital Signs: Vital Signs Temperature 98.0 F 02/23/19 01:00 Pulse Rate 51 L 02/23/19 09:00 Respiratory Rate 18 02/23/19 09:00 Blood Pressure 175/70 H 02/23/19 09:00 O2 Sat by Pulse Oximetry (%) 97 02/22/19 17:10 Constitutional: Yes: Well Nourished, No Distress, Calm Eyes: Yes: Conjunctiva Clear, EOM Intact HENT: Yes: Atraumatic, Normocephalic Neck: Yes: Supple, Trachea Midline Cardiovascular: Yes: Regular Rate and Rhythm Respiratory: Yes: Regular, CTA Bilaterally Gastrointestinal: Yes: Normal Bowel Sounds Edema: No Labs: CBC, BMP 02/23/19 06:00 02/23/19 06:00 INR, PTT INR 0.93 (0.83-1.09) 02/23/19 06:00 Problem List - Problems (1) Sinus bradycardia Code(s): R00.1 - BRADYCARDIA, UNSPECIFIED Assessment/Plan 78 F HTN hypothyroid with 3 weeks of upper repiratory symptoms. 3 days of fatigue. ECG shows marked sinus bradycardia. With bedside leg raise exercises HR promptly increased to 60 BPM. Echo 02/23/19 Normal LV systolic function. Normal RV Severe TR with normal PASP Moderate MR. Avoid any AV johnathan blocking agents. If she needs antihypertensive therapy, use alternate medications-ARB/Amlodipine/ nifidipine. Mild sinus abel without evidence for chronotropic incompetence. DC telemetry Please call with any questions
--- NOTE | 2019-02-23 19:21 | PN ---
Teaching Attending Note Name of Resident: Alf Schneider ATTENDING PHYSICIAN STATEMENT I saw and evaluated the patient. I reviewed the resident's note and discussed the case with the resident. I agree with the resident's findings and plan as documented. SUBJECTIVE: Patient seen and examined Presents with one month history of URI like symptoms with cough, sputum, rhinitis, . Recent progressive weakness and bradycardia. Last Vital Signs Temp Pulse Resp BP Pulse Ox 98.0 F 56 L 18 128/78 97 02/23/19 01:00 02/23/19 15:30 02/23/19 15:30 02/23/19 15:30 02/22/19 17:10 HEENT: CUCO, EOM Intact Oropharynx: No thrush, No mucositis Neck: Supple Nodes: Without adenopathy Breasts: Without masses Cor: bradycardia Lungs: Clear to P&A Abd: Soft, Normal bowel sounds, No organomegaly Ext:No significant edema Skin: No rashes, Integument intact CBC, BMP 02/23/19 06:00 02/23/19 06:00 Current Medications Generic Name Dose Route Start Last Admin Trade Name Freq PRN Reason Stop Dose Admin Amlodipine Besylate 10 mg 02/23/19 10:00 02/23/19 10:44 Norvasc - PO 10 mg DAILY [facility] Administration Atorvastatin Calcium 20 mg 02/22/19 22:00 02/22/19 21:41 Lipitor - PO 20 mg HS [facility] Administration Heparin Sodium (Porcine) 5,000 unit 02/22/19 22:00 02/23/19 10:44 Heparin - SQ 5,000 unit BID [facility] Administration Hydralazine HCl 50 mg 02/23/19 12:36 Apresoline - PO BID [facility] Levothyroxine Sodium 25 mcg 02/23/19 07:00 02/23/19 06:14 Synthroid - PO 25 mcg DAILY@0700 [facility] Administration Impression: Bradycardia HBP HPL Hypothyroidism Neutropenia Thrombocytopenia Etiology unclear P.S.- N/Nc RBC's; WBC- decreased ,normal segmentation 1-- 3 lobed eosinophil, no toxic granulation; platelets mildly decreased Plan: Screening tests, Ultrasound of liver/spleen If non revealing-- Flow cytometry OBJECTIVE: ASSESSMENT AND PLAN:
[2019-02-23] MEDS: ATORVASTATIN CA 20 MG TABLET (FP) PO SCH (22:14)
[2019-02-23] MEDS: hydrALAZINE HCL 50 MG TABLET (FP) PO SCH (22:14)
[2019-02-24] MEDS ORDERED: DEXTROSE 50%-WATER 25 GM/50 ML DISP.SYRIN ONE (05:28)
[2019-02-24] MEDS ORDERED: DEXTROSE 50%-WATER - 25 GM/50 ML VIAL IVPUSH ONE ×5 (05:33→17:44)
--- NOTE | 2019-02-24 05:33 | RAPID ---
Physical Examination Vital Signs: Vital Signs Temperature 97.4 F L 02/24/19 02:00 Pulse Rate 102 H 02/24/19 02:00 Respiratory Rate 18 02/24/19 02:00 Blood Pressure 123/51 L 02/24/19 02:00 O2 Sat by Pulse Oximetry (%) 97 02/22/19 17:10 Findings/Remarks: Called to rapid response at 5:30 AM for patient found nonresponsive, hypoglycemic to 12 by fingerstick. BP 144/80, HR 93. Ordered CMP, Mg, Phos, CBC , 2 amps D50. Placed on non-rebreather, saturating 100%. Subsequently became more responsive and oriented. Repeat FSG 331. Cardiovascular: Yes: Tachycardia Respiratory: Yes: WNL Labs: CBC, BMP 02/23/19 06:00 02/23/19 06:00
[2019-02-24 06:17] LABS: BASO % 0.1 % (0-2.0); EOS % 0.1 % (0-4.5); HEMATOCRIT 33.9 % (32.4-45.2); HEMOGLOBIN 10.9 GM/dL (10.7-15.3); LYMPH % 11.7 % (8-40); MCH 29.8 pg (25.7-33.7); MCHC 32.1 g/dl (32.0-36.0); MEAN CELL VOLUME 92.8 fl (80-96); MEAN PLT VOLUME 10.1 fl (7.5-11.1); MONO % 8.8 % (3.8-10.2); NEUT % 79.3 % (42.8-82.8); PLATELET COUNT 120 K/MM3 (134-434); RBC 3.65 M/mm3 (3.60-5.2); RDW 14.9 % (11.6-15.6); WHITE BLOOD COUNT 6.3 K/mm3 (4.0-10.0)
[2019-02-24] MEDS: LEVOTHYROXINE NA 25 MCG TABLET (FP) PO SCH (06:32)
[2019-02-24 07:38] LABS: ALBUMIN 2.9 g/dl (3.4-5.0); ALK PHOS 46 U/L (45-117); ANION GAP 9 MMOL/L (8-16); BILIRUBIN,TOTAL 0.2 mg/dL (0.2-1); BLOOD UREA NITROGEN 15 mg/dL (7-18); CALCIUM 7.6 mg/dL (8.5-10.1); CHLORIDE 105 mmol/L (98-107); CO2 28 mmol/L (21-32); GLUCOSE,RANDOM 279 mg/dL (74-106); SGOT/AST 21 U/L (15-37); SGPT/ALT 20 U/L (13-61); SODIUM 142 mmol/L (136-145); TOT PROT 5.6 g/dl (6.4-8.2)
[2019-02-24 07:53] LABS: PHOSPHOROUS 0.4 mg/dL (2.5-4.9); POTASSIUM 2.5 mmol/L (3.5-5.1)
[2019-02-24] MEDS: amLODIPine BESYLATE 10 MG TABLET (FP) PO SCH (09:57)
[2019-02-24] MEDS: hydrALAZINE HCL 50 MG TABLET (FP) PO SCH ×2 (09:57→21:48)
[2019-02-24] MEDS: HEPARIN NA (PORCINE) 5,000 UNITS/ML 1ML VIAL SQ SCH ×2 (09:57→21:48)
--- NOTE | 2019-02-24 10:11 | PN ---
Progress Note, Physician History of Present Illness: pulmonary earlier events noted s/p rapid response secondary to unresponsiveness,+ hypoglycemic episode glucose 12,pt treated with d50 with good clinical response. pt currently awake,alert,in nad,-cp,-sob. - Current Medication List Current Medications: Active Medications Amlodipine Besylate (Norvasc -) 10 mg PO DAILY [facility] Last Admin: 02/24/19 09:57 Dose: 10 mg Atorvastatin Calcium (Lipitor -) 20 mg PO HS [facility] Last Admin: 02/23/19 22:14 Dose: 20 mg Heparin Sodium (Porcine) (Heparin -) 5,000 unit SQ BID [facility] Last Admin: 02/24/19 09:57 Dose: 5,000 unit Hydralazine HCl (Apresoline -) 50 mg PO BID [facility] Last Admin: 02/24/19 09:57 Dose: 50 mg Levothyroxine Sodium (Synthroid -) 25 mcg PO DAILY@0700 [facility] Last Admin: 02/24/19 06:32 Dose: 25 mcg - Objective Vital Signs: Vital Signs Temperature 97.5 F L 02/24/19 05:30 Pulse Rate 81 02/24/19 06:05 Respiratory Rate 18 02/24/19 06:05 Blood Pressure 125/66 02/24/19 06:05 O2 Sat by Pulse Oximetry (%) 97 02/22/19 17:10 Constitutional: Yes: Well Nourished, Calm Eyes: Yes: WNL HENT: Yes: WNL Neck: Yes: WNL Cardiovascular: Yes: Regular Rate and Rhythm, S1, S2 Respiratory: Yes: CTA Bilaterally Gastrointestinal: Yes: Normal Bowel Sounds, Soft Extremities: Yes: WNL Edema: No Labs: CBC, BMP 02/24/19 05:30 02/24/19 05:30 INR, PTT INR 0.93 (0.83-1.09) 02/23/19 06:00 - ....Imaging Cat Scan: Report Reviewed, Image Reviewed Problem List - Problems (1) Weakness Code(s): R53.1 - WEAKNESS (2) Hypertension Code(s): I10 - ESSENTIAL (PRIMARY) HYPERTENSION Qualifiers: Hypertension type: unspecified Qualified Code(s): I10 - Essential (primary ) hypertension (3) Hypothyroidism Code(s): E03.9 - HYPOTHYROIDISM, UNSPECIFIED Qualifiers: Hypothyroidism type: unspecified Qualified Code(s): E03.9 - Hypothyroidism , unspecified (4) Sinus bradycardia Code(s): R00.1 - BRADYCARDIA, UNSPECIFIED (5) URI (upper respiratory infection) Code(s): J06.9 - ACUTE UPPER RESPIRATORY INFECTION, UNSPECIFIED (6) Elevated hemidiaphragm Code(s): J98.6 - DISORDERS OF DIAPHRAGM (7) Thrombocytopenia Code(s): D69.6 - THROMBOCYTOPENIA, UNSPECIFIED Assessment/Plan IMP SYMTOMATIC BRADYCARDIA URI ELEVATED R IRMA-DIAPHRAGM HTN HYPOTHYROID THROMBOCYTOPENIA PLAN BP MEDS PER CARDIOLOGY MONITOR BLOOD SUGARS MONITOR BP MONITOR CBC,PLT CT REPLETE MARK REID Problem List - Problems (1) Weakness Code(s): R53.1 - WEAKNESS (2) Hypertension Code(s): I10 - ESSENTIAL (PRIMARY) HYPERTENSION Qualifiers: Hypertension type: unspecified Qualified Code(s): I10 - Essential (primary ) hypertension (3) Hypothyroidism Code(s): E03.9 - HYPOTHYROIDISM, UNSPECIFIED Qualifiers: Hypothyroidism type: unspecified Qualified Code(s): E03.9 - Hypothyroidism , unspecified (4) Sinus bradycardia Code(s): R00.1 - BRADYCARDIA, UNSPECIFIED (5) URI (upper respiratory infection) Code(s): J06.9 - ACUTE UPPER RESPIRATORY INFECTION, UNSPECIFIED (6) Elevated hemidiaphragm Code(s): J98.6 - DISORDERS OF DIAPHRAGM (7) Thrombocytopenia Code(s): D69.6 - THROMBOCYTOPENIA, UNSPECIFIED
[2019-02-24] MEDS: KCL 10 MEQ IVPB 10 MEQ/100 ML INFUS.BAG IVPB SCH ×2 (10:47→12:02)
[2019-02-24] MEDS ORDERED: POTASSIUM CHLORIDE TABS 20 MEQ TABLET.ER (FP) PO ONE (11:45)
[2019-02-24] MEDS ORDERED: SODIUM CHLORIDE 0.45%/POT 20 MEQ/1,000 ML INFUS.BAG IV SCH (12:00)
[2019-02-24] MEDS ORDERED: D5-1/2NS+20 MEQ KCL - 20 MEQ/1,000 ML INFUS.BAG IV SCH (12:00)
--- NOTE | 2019-02-24 12:03 | RAPID ---
Physical Examination Vital Signs: Vital Signs Temperature 97.5 F L 02/24/19 05:30 Pulse Rate 81 02/24/19 06:05 Respiratory Rate 18 02/24/19 06:05 Blood Pressure 125/66 02/24/19 06:05 O2 Sat by Pulse Oximetry (%) 97 02/22/19 17:10 Labs: CBC, BMP 02/24/19 05:30 02/24/19 05:30 Rapid Response - Rapid Response Assessment: rapid response was called at 11;47 patient was lethargic and her fingerstick was 13- this was the second rapid response called on this patient today for same reason. vitals: wnl gen: patient is now awake and responsive cardio: RRR s1 s21 lungs: CTA B/L plan: stat Hba1c, tsh, cortisol BGMS q1H d51/2NS with 20meq KCL primary team notified;dr guajardo has already been consulted
--- NOTE | 2019-02-24 12:25 | PN ---
Progress Note, Physician History of Present Illness: events noted hypoglycemia---on no diabetic meds - Current Medication List Current Medications: Active Medications Amlodipine Besylate (Norvasc -) 10 mg PO DAILY [facility] Last Admin: 02/24/19 09:57 Dose: 10 mg Atorvastatin Calcium (Lipitor -) 20 mg PO HS [facility] Last Admin: 02/23/19 22:14 Dose: 20 mg Heparin Sodium (Porcine) (Heparin -) 5,000 unit SQ BID [facility] Last Admin: 02/24/19 09:57 Dose: 5,000 unit Hydralazine HCl (Apresoline -) 50 mg PO BID [facility] Last Admin: 02/24/19 09:57 Dose: 50 mg Potassium Chloride (Potassium Chloride 10 Meq Premix Ivpb -) 10 meq in 100 mls @ 100 mls/hr IVPB Q60M [facility] Stop: 02/24/19 13:14 Last Admin: 02/24/19 12:02 Dose: Not Given Levothyroxine Sodium (Synthroid -) 25 mcg PO DAILY@0700 [facility] Last Admin: 02/24/19 06:32 Dose: 25 mcg - Objective Vital Signs: Vital Signs Temperature 97.5 F L 02/24/19 05:30 Pulse Rate 81 02/24/19 06:05 Respiratory Rate 18 02/24/19 06:05 Blood Pressure 125/66 02/24/19 06:05 O2 Sat by Pulse Oximetry (%) 97 02/22/19 17:10 Cardiovascular: Yes: S1, S2 Respiratory: Yes: Regular, CTA Bilaterally Gastrointestinal: Yes: Normal Bowel Sounds, Soft Edema: No Neurological: Yes: Alert, Oriented Labs: CBC, BMP 02/24/19 05:30 02/24/19 05:30 INR, PTT INR 0.93 (0.83-1.09) 02/23/19 06:00 Problem List - Problems (1) Sinus bradycardia Assessment/Plan: Improved off b-blockers -monitor on tele -echo Code(s): R00.1 - BRADYCARDIA, UNSPECIFIED (2) Pancytopenia Assessment/Plan: Laboratory Tests 02/22/19 02/23/19 13:03 06:00 WBC 3.2 L 2.8 L Plt Count 106 L D 104 L Neutrophils % (Manual) 37.7 L Monocytes % (Manual) 13 H check previous hem consult noted Code(s): D61.818 - OTHER PANCYTOPENIA (3) Hypertension Assessment/Plan: Vital Signs Period Temp Pulse Resp BP Sys/Hassan Pulse Ox Last 24 Hr 97.5 F-98.2 F 43-57 18-20 175-207/62-90 97-98 Increase hydralazine 50 bid amlodipine 10 Code(s): I10 - ESSENTIAL (PRIMARY) HYPERTENSION Qualifiers: Hypertension type: unspecified Qualified Code(s): I10 - Essential (primary ) hypertension (4) Hypothyroidism Assessment/Plan: -Tsh nl Code(s): E03.9 - HYPOTHYROIDISM, UNSPECIFIED Qualifiers: Hypothyroidism type: unspecified Qualified Code(s): E03.9 - Hypothyroidism , unspecified (5) Weakness Assessment/Plan: monito maybe due bs Code(s): R53.1 - WEAKNESS (6) Hypoglycemia Assessment/Plan: endo consult--r/o insulinoma insulin level---c-peptide bgm ivf Code(s): E16.2 - HYPOGLYCEMIA, UNSPECIFIED (7) Hypokalemia Assessment/Plan: replace po4 and kcl Code(s): E87.6 - HYPOKALEMIA
[2019-02-24] MEDS: D5-1/2NS+40 MEQ KCL - 40 MEQ/1,000 ML INFUS.BAG IV SCH (13:10)
[2019-02-24] MEDS: NAPH,MB-DB/K PH,MBDB POWDER PACKET PO SCH ×2 (13:11→21:55)
[2019-02-24 15:41] LABS: MAGNESIUM 1.8 mg/dL (1.8-2.4)
[2019-02-24] MEDS ORDERED: PT OWN MED DRAWER 7, Y5N ONE (15:53)
[2019-02-24 16:34] LABS: ANION GAP 8 MMOL/L (8-16); BLOOD UREA NITROGEN 12 mg/dL (7-18); CALCIUM 8.6 mg/dL (8.5-10.1); CHLORIDE 104 mmol/L (98-107); CO2 28 mmol/L (21-32); CREATININE 0.8 mg/dL (0.55-1.3); GLUCOSE,RANDOM 152 mg/dL (74-106); POTASSIUM 4.1 mmol/L (3.5-5.1); SODIUM 140 mmol/L (136-145)
[2019-02-24] MEDS ORDERED: DEXTROSE 50%-WATER - 25 GM/50 ML VIAL ONE (17:47)
--- NOTE | 2019-02-24 19:44 | CONSULT ---
Consult Consult Specialty:: Hematology Referred by:: Dr. Awad Reason for Consultation:: Thrombocytopenia - History of Present Illness Chief Complaint: Headache History of Present Illness: 78F with HTN, hypothyroidism admitted with hypertension and BINGHAM. Improved on BP meds. Also with sinus bradycardia. BB discontinued. This morning had episode of unresponsiveness due to hypoglycemia. Resolved with treatment. Also with very low Phos and K. Hematology consulted for mild thrombocytopenia. Plt count was 136 in 12/2018 (no prior labs available). On current admission, still with mild thrombocytopenia though with upward trend today. Also with mild normocytic anemia (though Hgb wnl on admission). WBC normal. B12 normal. Pt and [id number], at bedside, not aware of any prior abnormal blood counts. No bleeding, fevers, weight loss, night sweats. - Past Medical History Cardio/Vascular: Yes: HTN ...: No - Alcohol/Substance Use Hx Alcohol Use: No - Smoking History Smoking history: Never smoked Have you smoked in the past 12 months: No Home Medications - Allergies Allergies/Adverse Reactions: Allergies Allergy/AdvReac Type Severity Reaction Status Date / Time No Known Allergies Allergy Verified 02/22/19 13:11 - Home Medications Home Medications: Ambulatory Orders Levothyroxine [Synthroid -] 25 mcg PO DAILY 01/07/19 Nebivolol [Bystolic -] 5 mg PO DAILY 01/07/19 Aspirin 81 mg PO DAILY 02/22/19 Calcium Carbonate/Vitamin D3 [Calcium 600 + Vit D Tablet] 1 each PO DAILY Cholecalciferol (Vitamin D3) [Vitamin D3] 1,000 unit PO DAILY 02/22/19 Furosemide [Lasix -] 20 mg PO DAILY 02/22/19 Pitavastatin Calcium [Livalo] 4 mg PO DAILY 02/22/19 Review of Systems - Review of Systems Constitutional: reports: No Symptoms Eyes: reports: No Symptoms Cardiovascular: reports: No Symptoms Respiratory: reports: No Symptoms Gastrointestinal: reports: No Symptoms Hematology/Lymphatic: reports: No Symptoms Physical Exam Vital Signs: Vital Signs Temperature 98.8 F 02/24/19 17:56 Pulse Rate 76 02/24/19 17:56 Respiratory Rate 18 02/24/19 17:56 Blood Pressure 110/48 L 02/24/19 17:56 O2 Sat by Pulse Oximetry (%) 97 02/24/19 09:00 Constitutional: Yes: Well Nourished, No Distress Eyes: Yes: Conjunctiva Clear HENT: Yes: WNL Cardiovascular: Yes: Regular Rate and Rhythm Respiratory: Yes: Regular, CTA Bilaterally Gastrointestinal: Yes: WNL, Soft Extremities: Yes: WNL Edema: No Labs: CBC, BMP 02/24/19 05:30 02/24/19 14:30 Assessment/Plan 78F with HTN, hypothyroidism admitted with hypertensive urgency. Found to have mild thrombocytopenia. No obvious culprit meds. Please check folate, iron studies, ferritin, HIV, Hep B/C. H. pylori stool antigen and abdominal sono to eval for splenomegaly. Please repeat coags. Unclear cause for prolonged PTT (with normal PT). If still prolonged, please send mixing study and lupus anticoagulant.
[2019-02-24] MEDS: INSULIN SLIDING SCALE (NOVOLOG) 1 VIAL SQ SCH (21:45)
[2019-02-24] MEDS: ATORVASTATIN CA 20 MG TABLET (FP) PO SCH (21:48)
[2019-02-24] MEDS ORDERED: INSULIN SLIDING SCALE (NOVOLOG) 1 VIAL SQ SCH (22:00)
[2019-02-25] MEDS: D5-1/2NS+40 MEQ KCL - 40 MEQ/1,000 ML INFUS.BAG IV SCH ×2 (02:56→12:35)
[2019-02-25] MEDS: INSULIN SLIDING SCALE (NOVOLOG) 1 VIAL SQ SCH ×4 (06:38→22:29)
[2019-02-25] MEDS: LEVOTHYROXINE NA 25 MCG TABLET (FP) PO SCH (06:38)
[2019-02-25 07:04] LABS: ALBUMIN 2.6 g/dl (3.4-5.0); ALK PHOS 46 U/L (45-117); ANION GAP 6 MMOL/L (8-16); BILIRUBIN,TOTAL 0.3 mg/dL (0.2-1); BLOOD UREA NITROGEN 8 mg/dL (7-18); CALCIUM 7.4 mg/dL (8.5-10.1); CHLORIDE 106 mmol/L (98-107); CO2 28 mmol/L (21-32); CREATININE 0.9 mg/dL (0.55-1.3); GLUCOSE,RANDOM 114 mg/dL (74-106); PHOSPHOROUS 1.7 mg/dL (2.5-4.9); POTASSIUM 4.7 mmol/L (3.5-5.1); SGOT/AST 20 U/L (15-37); SGPT/ALT 18 U/L (13-61); SODIUM 140 mmol/L (136-145); TOT PROT 5.4 g/dl (6.4-8.2)
[2019-02-25] MEDS: hydrALAZINE HCL 50 MG TABLET (FP) PO SCH ×2 (10:01→22:29)
[2019-02-25] MEDS: HEPARIN NA (PORCINE) 5,000 UNITS/ML 1ML VIAL SQ SCH ×2 (10:01→22:29)
[2019-02-25] MEDS: NAPH,MB-DB/K PH,MBDB POWDER PACKET PO SCH ×2 (10:01→22:29)
[2019-02-25] MEDS: amLODIPine BESYLATE 10 MG TABLET (FP) PO SCH (10:02)
--- NOTE | 2019-02-25 10:14 | PN ---
Progress Note, Physician History of Present Illness: pulmonary alert,no distress,-cp,-sob - Current Medication List Current Medications: Active Medications Amlodipine Besylate (Norvasc -) 10 mg PO DAILY [facility] Last Admin: 02/25/19 10:02 Dose: 10 mg Atorvastatin Calcium (Lipitor -) 20 mg PO HS [facility] Last Admin: 02/24/19 21:48 Dose: 20 mg Heparin Sodium (Porcine) (Heparin -) 5,000 unit SQ BID [facility] Last Admin: 02/25/19 10:01 Dose: 5,000 unit Hydralazine HCl (Apresoline -) 50 mg PO BID [facility] Last Admin: 02/25/19 10:01 Dose: 50 mg Dextrose/Sodium Chloride (D5-1/2ns+40 Meq Kcl -) 40 meq in 1,000 mls @ 75 mls/ hr IV ASDIR [facility] Last Admin: 02/25/19 02:56 Dose: 75 mls/hr Insulin Aspart (Novolog Vial Sliding Scale -) 1 vial SQ ACHS [facility]; Protocol Last Admin: 02/25/19 06:38 Dose: Not Given Levothyroxine Sodium (Synthroid -) 25 mcg PO DAILY@0700 [facility] Last Admin: 02/25/19 06:38 Dose: 25 mcg Potassium Phos/Sodium Phos (Phos-Nak Packet -) 1 packet PO BID [facility] Last Admin: 02/25/19 10:01 Dose: 1 packet - Objective Vital Signs: Vital Signs Temperature 98 F 02/25/19 05:00 Pulse Rate 72 02/25/19 05:00 Respiratory Rate 16 02/25/19 05:00 Blood Pressure 123/50 L 02/25/19 05:00 O2 Sat by Pulse Oximetry (%) 97 02/24/19 20:10 Constitutional: Yes: Well Nourished, Calm Eyes: Yes: WNL HENT: Yes: WNL Neck: Yes: WNL Cardiovascular: Yes: Regular Rate and Rhythm, S1, S2 Respiratory: Yes: CTA Bilaterally Gastrointestinal: Yes: Normal Bowel Sounds, Soft Extremities: Yes: WNL Edema: No Labs: CBC, BMP 02/24/19 05:30 02/25/19 05:30 INR, PTT INR 0.93 (0.83-1.09) 02/23/19 06:00 Problem List - Problems (1) Weakness Code(s): R53.1 - WEAKNESS (2) Hypertension Code(s): I10 - ESSENTIAL (PRIMARY) HYPERTENSION Qualifiers: Hypertension type: unspecified Qualified Code(s): I10 - Essential (primary ) hypertension (3) Hypothyroidism Code(s): E03.9 - HYPOTHYROIDISM, UNSPECIFIED Qualifiers: Hypothyroidism type: unspecified Qualified Code(s): E03.9 - Hypothyroidism , unspecified (4) Sinus bradycardia Code(s): R00.1 - BRADYCARDIA, UNSPECIFIED (5) URI (upper respiratory infection) Code(s): J06.9 - ACUTE UPPER RESPIRATORY INFECTION, UNSPECIFIED (6) Elevated hemidiaphragm Code(s): J98.6 - DISORDERS OF DIAPHRAGM (7) Thrombocytopenia Code(s): D69.6 - THROMBOCYTOPENIA, UNSPECIFIED Assessment/Plan IMP SYMTOMATIC BRADYCARDIA URI ELEVATED R IRMA-DIAPHRAGM HTN HYPOTHYROID THROMBOCYTOPENIA PLAN BP MEDS PER CARDIOLOGY MONITOR BLOOD SUGARS MONITOR BP MONITOR CBC,PLT CT REPLETE MARK REID Problem List - Problems (1) Weakness Code(s): R53.1 - WEAKNESS (2) Hypertension Code(s): I10 - ESSENTIAL (PRIMARY) HYPERTENSION Qualifiers: Hypertension type: unspecified Qualified Code(s): I10 - Essential (primary ) hypertension (3) Hypothyroidism Code(s): E03.9 - HYPOTHYROIDISM, UNSPECIFIED Qualifiers: Hypothyroidism type: unspecified Qualified Code(s): E03.9 - Hypothyroidism , unspecified (4) Sinus bradycardia Code(s): R00.1 - BRADYCARDIA, UNSPECIFIED (5) URI (upper respiratory infection) Code(s): J06.9 - ACUTE UPPER RESPIRATORY INFECTION, UNSPECIFIED (6) Elevated hemidiaphragm Code(s): J98.6 - DISORDERS OF DIAPHRAGM (7) Thrombocytopenia Code(s): D69.6 - THROMBOCYTOPENIA, UNSPECIFIED
--- NOTE | 2019-02-25 10:23 | CONSULT ---
Consult - text type - Consultation Consultation Note: Renal Consult for Hypokalemia This is a 78 year old woman with hx of hypertension and hypothyroidism who presented with bradycardia and noted to have hypokalemia during hospital stay. Pt seen and examined at the bedside. Awake and alert, c/o mild nausea this am, no vomitting. Denies any chest pain, abd pain, diarrhea. Reports that she was told her potassium was low in the past but she was not on any supplementation. Pt was on diuretics at home. Not on KCL supplementation. Reports not eating so well at home. PMhx: as above Allergies: NKDA Family Hx: NC Social hx: No T/A/D ROS: as per HPI Home Medications Medication Instructions Recorded Levothyroxine [Synthroid -] 25 mcg PO DAILY 01/07/19 Nebivolol [Bystolic -] 5 mg PO DAILY 01/07/19 Aspirin 81 mg PO DAILY 02/22/19 Calcium Carbonate/Vitamin D3 1 each PO DAILY 02/22/19 [Calcium 600 + Vit D Tablet] Cholecalciferol (Vitamin D3) 1,000 unit PO DAILY 02/22/19 [Vitamin D3] Furosemide [Lasix -] 20 mg PO DAILY 02/22/19 Pitavastatin Calcium [Livalo] 4 mg PO DAILY 02/22/19 Vital Signs Temperature 98 F 02/25/19 05:00 Pulse Rate 72 02/25/19 05:00 Respiratory Rate 16 02/25/19 05:00 Blood Pressure 123/50 L 02/25/19 05:00 O2 Sat by Pulse Oximetry (%) 97 02/24/19 20:10 Intake & Output 02/22/19 02/23/19 02/24/19 02/25/19 23:59 23:59 23:59 23:59 Intake Total 370 788 6435 Balance 486 209 8522 Weight 62.324 kg NAD awake and alert neck supple, no JVD RRR, No M/R CTA, no rales or wheeze soft NT/ND no LE edema, clubbing or cyanosis no bladder distension CBC, BMP 02/24/19 05:30 02/25/19 05:30 Current Medications Amlodipine Besylate (Norvasc -) 10 mg PO DAILY [facility] Last Admin: 02/25/19 10:02 Dose: 10 mg Atorvastatin Calcium (Lipitor -) 20 mg PO HS [facility] Last Admin: 02/24/19 21:48 Dose: 20 mg Heparin Sodium (Porcine) (Heparin -) 5,000 unit SQ BID [facility] Last Admin: 02/25/19 10:01 Dose: 5,000 unit Hydralazine HCl (Apresoline -) 50 mg PO BID [facility] Last Admin: 02/25/19 10:01 Dose: 50 mg Dextrose/Sodium Chloride (D5-1/2ns+40 Meq Kcl -) 40 meq in 1,000 mls @ 75 mls/ hr IV ASDIR [facility] Last Admin: 02/25/19 02:56 Dose: 75 mls/hr Insulin Aspart (Novolog Vial Sliding Scale -) 1 vial SQ ACHS [facility]; Protocol Last Admin: 02/25/19 06:38 Dose: Not Given Levothyroxine Sodium (Synthroid -) 25 mcg PO DAILY@0700 [facility] Last Admin: 02/25/19 06:38 Dose: 25 mcg Potassium Phos/Sodium Phos (Phos-Nak Packet -) 1 packet PO BID [facility] Last Admin: 02/25/19 10:01 Dose: 1 packet 78 year old woman with hx of hypertension and hypothyroidism who presented with bradycardia and noted to have hypokalemia during hospital stay. #Hypokalemia (now resolved) #Bradycardia #Hypoglycemia episodes #Hypertension #Hypothyroidism TTKG 11.9 consistent with increased urinary potassium loss likely due to diuretic effect. K is improved s/p IV and oral supplementation continue to hold diuretic for now, if resumed pt should be on maintaince K supplement Mg levels are ok Cardiology follow up for bradycardia Thank you Will monitor Mickey Coleman DO
--- NOTE | 2019-02-25 11:49 | PN ---
Progress Note, Physician - Current Medication List Current Medications: Active Medications Amlodipine Besylate (Norvasc -) 10 mg PO DAILY [facility] Last Admin: 02/25/19 10:02 Dose: 10 mg Atorvastatin Calcium (Lipitor -) 20 mg PO HS [facility] Last Admin: 02/24/19 21:48 Dose: 20 mg Heparin Sodium (Porcine) (Heparin -) 5,000 unit SQ BID [facility] Last Admin: 02/25/19 10:01 Dose: 5,000 unit Hydralazine HCl (Apresoline -) 50 mg PO BID [facility] Last Admin: 02/25/19 10:01 Dose: 50 mg Dextrose/Sodium Chloride (D5-1/2ns+40 Meq Kcl -) 40 meq in 1,000 mls @ 75 mls/ hr IV ASDIR [facility] Last Admin: 02/25/19 02:56 Dose: 75 mls/hr Insulin Aspart (Novolog Vial Sliding Scale -) 1 vial SQ ACHS [facility]; Protocol Last Admin: 02/25/19 11:14 Dose: Not Given Levothyroxine Sodium (Synthroid -) 25 mcg PO DAILY@0700 [facility] Last Admin: 02/25/19 06:38 Dose: 25 mcg Potassium Phos/Sodium Phos (Phos-Nak Packet -) 1 packet PO BID [facility] Last Admin: 02/25/19 10:01 Dose: 1 packet - Objective Vital Signs: Vital Signs Temperature 98.3 F 02/25/19 09:00 Pulse Rate 61 02/25/19 09:00 Respiratory Rate 16 02/25/19 09:00 Blood Pressure 134/59 L 02/25/19 09:00 O2 Sat by Pulse Oximetry (%) 96 02/25/19 09:00 Cardiovascular: Yes: S1, S2 Respiratory: Yes: Regular, CTA Bilaterally Gastrointestinal: Yes: Normal Bowel Sounds, Soft Labs: CBC, BMP 02/24/19 05:30 02/25/19 05:30 INR, PTT INR 0.93 (0.83-1.09) 02/23/19 06:00 Problem List - Problems (1) Sinus bradycardia Assessment/Plan: Improved off b-blockers -monitor on tele -echo Code(s): R00.1 - BRADYCARDIA, UNSPECIFIED (2) Pancytopenia Assessment/Plan: check previous hem consult noted Laboratory Tests 04/04/19 04/05/19 04/06/19 13:03 06:00 05:30 WBC 3.2 L 2.8 L 6.3 Plt Count 106 L D 104 L 120 L Code(s): D61.818 - OTHER PANCYTOPENIA (3) Hypertension Assessment/Plan: Vital Signs Period Temp Pulse Resp BP Sys/Hassan Pulse Ox Last 24 Hr 97.5 F-98.2 F 43-57 18-20 175-207/62-90 97-98 Increase hydralazine 50 bid amlodipine 10 Code(s): I10 - ESSENTIAL (PRIMARY) HYPERTENSION Qualifiers: Hypertension type: unspecified Qualified Code(s): I10 - Essential (primary ) hypertension (4) Hypothyroidism Assessment/Plan: -Tsh nl Code(s): E03.9 - HYPOTHYROIDISM, UNSPECIFIED Qualifiers: Hypothyroidism type: unspecified Qualified Code(s): E03.9 - Hypothyroidism , unspecified (5) Weakness Assessment/Plan: monito maybe due bs Code(s): R53.1 - WEAKNESS (6) Hypoglycemia Assessment/Plan: endo consult--r/o insulinoma insulin level---c-peptide bgm ivf Code(s): E16.2 - HYPOGLYCEMIA, UNSPECIFIED (7) Hypokalemia Assessment/Plan: IMPROVED replace po4 and kcl Code(s): E87.6 - HYPOKALEMIA
--- NOTE | 2019-02-25 20:00 | PN ---
Progress Note, Physician Chief Complaint: BINGHAM History of Present Illness: No new events. Denies BINGHAM. - Current Medication List Current Medications: Active Medications Amlodipine Besylate (Norvasc -) 10 mg PO DAILY [facility] Last Admin: 02/25/19 10:02 Dose: 10 mg Atorvastatin Calcium (Lipitor -) 20 mg PO HS [facility] Last Admin: 02/24/19 21:48 Dose: 20 mg Heparin Sodium (Porcine) (Heparin -) 5,000 unit SQ BID [facility] Last Admin: 02/25/19 10:01 Dose: 5,000 unit Hydralazine HCl (Apresoline -) 50 mg PO BID [facility] Last Admin: 02/25/19 10:01 Dose: 50 mg Dextrose/Sodium Chloride (D5-1/2ns+40 Meq Kcl -) 40 meq in 1,000 mls @ 75 mls/ hr IV ASDIR [facility] Last Admin: 02/25/19 12:35 Dose: 75 mls/hr Insulin Aspart (Novolog Vial Sliding Scale -) 1 vial SQ ACHS [facility]; Protocol Last Admin: 02/25/19 17:26 Dose: Not Given Levothyroxine Sodium (Synthroid -) 25 mcg PO DAILY@0700 [facility] Last Admin: 02/25/19 06:38 Dose: 25 mcg Potassium Phos/Sodium Phos (Phos-Nak Packet -) 1 packet PO BID [facility] Last Admin: 02/25/19 10:01 Dose: 1 packet - Objective Vital Signs: Vital Signs Temperature 98.8 F 02/25/19 17:38 Pulse Rate 61 02/25/19 17:38 Respiratory Rate 20 02/25/19 17:38 Blood Pressure 113/46 L 02/25/19 17:38 O2 Sat by Pulse Oximetry (%) 96 02/25/19 09:00 Constitutional: Yes: Well Nourished, No Distress Eyes: Yes: Conjunctiva Clear Respiratory: Yes: Regular Gastrointestinal: Yes: Normal Bowel Sounds, Soft Edema: No Labs: CBC, BMP 02/24/19 05:30 02/25/19 05:30 INR, PTT INR 0.93 (0.83-1.09) 02/23/19 06:00 Assessment/Plan 78F with HTN, hypothyroidism admitted with hypertensive urgency. Found to have mild thrombocytopenia. No obvious culprit meds. Ordered folate, iron studies, ferritin, HIV, Hep B/C. H. pylori stool antigen and abdominal sono to eval for splenomegaly. Please repeat coags. Unclear cause for prolonged PTT (with normal PT). If still prolonged, please send mixing study and lupus anticoagulant.
--- NOTE | 2019-02-25 21:25 | CONSULT ---
Consult Consult Specialty:: endocrine Referred by:: dr.[email or web address] gold Reason for Consultation:: weakness,hypotension/hypoglycemia - History of Present Illness Chief Complaint: weakness poor appetite History of Present Illness: 78F w/ a history of hypothyroidism, HTN who presents for evaluation of generalized weakness. The pt has no history of hypoglycmia,or dm,has had weakness,poor appetite,muscle weakness,found to be hypotensive and , hypoglycemia bg below 50mgj/dl,and nausea,no vomiting,diarhea fever or chills - Past Medical History Cardio/Vascular: Yes: HTN ...: No - Alcohol/Substance Use Hx Alcohol Use: No - Smoking History Smoking history: Never smoked Have you smoked in the past 12 months: No Home Medications - Allergies Allergies/Adverse Reactions: Allergies Allergy/AdvReac Type Severity Reaction Status Date / Time No Known Allergies Allergy Verified 02/22/19 13:11 - Home Medications Home Medications: Ambulatory Orders Levothyroxine [Synthroid -] 25 mcg PO DAILY 01/07/19 Nebivolol [Bystolic -] 5 mg PO DAILY 01/07/19 Aspirin 81 mg PO DAILY 02/22/19 Calcium Carbonate/Vitamin D3 [Calcium 600 + Vit D Tablet] 1 each PO DAILY Cholecalciferol (Vitamin D3) [Vitamin D3] 1,000 unit PO DAILY 02/22/19 Furosemide [Lasix -] 20 mg PO DAILY 02/22/19 Pitavastatin Calcium [Livalo] 4 mg PO DAILY 02/22/19 Review of Systems - Review of Systems Constitutional: reports: Lethargy, Weakness Eyes: reports: No Symptoms HENT: reports: No Symptoms Neck: reports: No Symptoms Cardiovascular: reports: No Symptoms Respiratory: reports: Exercise Intolerance, SOB on Exertion Gastrointestinal: reports: Bloating Genitourinary: reports: No Symptoms Musculoskeletal: reports: Muscle Cramps, Muscle Weakness Neurological: reports: Numbness, Weakness Endocrine: reports: Unexplained Weight Loss Physical Exam Vital Signs: Vital Signs Temperature 98.8 F 02/25/19 17:38 Pulse Rate 61 02/25/19 17:38 Respiratory Rate 20 02/25/19 17:38 Blood Pressure 113/46 L 02/25/19 17:38 O2 Sat by Pulse Oximetry (%) 96 02/25/19 09:00 Constitutional: Yes: Calm Eyes: Yes: EOM Intact HENT: Yes: Normocephalic Neck: Yes: Trachea Midline, Thyromegaly Cardiovascular: Yes: Regular Rate and Rhythm Respiratory: Yes: CTA Bilaterally Gastrointestinal: Yes: Normal Bowel Sounds ...Rectal Exam: Yes: Deferred Musculoskeletal: Yes: WNL Extremities: Yes: WNL Neurological: Yes: Alert, Oriented Labs: CBC, BMP 02/24/19 05:30 02/25/19 05:30 Problem List - Problems (1) Hypoglycemia Code(s): E16.2 - HYPOGLYCEMIA, UNSPECIFIED (2) Hypokalemia Code(s): E87.6 - HYPOKALEMIA (3) Hypothyroidism Code(s): E03.9 - HYPOTHYROIDISM, UNSPECIFIED Qualifiers: Hypothyroidism type: unspecified Qualified Code(s): E03.9 - Hypothyroidism , unspecified (4) Pancytopenia Code(s): D61.818 - OTHER PANCYTOPENIA Assessment/Plan Current Active Problems Elevated hemidiaphragm (Acute) Hypoglycemia (Acute) Hypokalemia (Acute) Hypothyroidism (Acute) Pancytopenia (Acute) Sinus bradycardia (Acute) Thrombocytopenia (Acute) URI (upper respiratory infection) (Acute) Weakness (Acute) adrenal deficiency Abnormal Lab Results 02/24/19 02/25/19 21:57 05:30 Anion Gap 6 L Random Glucose 114 H Calcium 7.4 L Phosphorus 1.7 L Total Protein 5.4 L Albumin 2.6 L Ur Random Sodium 36 L Ur Random Chloride 52 L Laboratory Results - last 24 hr 02/22/19 02/24/19 02/24/19 13:03 21:44 21:57 Sodium Potassium Chloride Carbon Dioxide Anion Gap BUN Creatinine Creat Clearance w eGFR POC Glucometer 172 Random Glucose Calcium Phosphorus Total Bilirubin AST ALT Alkaline Phosphatase Total Protein Albumin Urine Osmolality Ur Random Sodium 36 L Ur Random Potassium 49.6 Ur Random Chloride 52 L Urine Creatinine Fld Lyme IgM West Blot No Result Required. Lyme IgG W Blot Interp No Result Required. 02/24/19 02/24/19 02/24/19 21:57 21:57 23:17 Sodium Potassium Chloride Carbon Dioxide Anion Gap BUN Creatinine Creat Clearance w eGFR POC Glucometer 110 Random Glucose Calcium Phosphorus Total Bilirubin AST ALT Alkaline Phosphatase Total Protein Albumin Urine Osmolality 300 Ur Random Sodium Ur Random Potassium Ur Random Chloride Urine Creatinine 59.0 Fld Lyme IgM [place] Blot Lyme IgG W Blot Interp 02/25/19 02/25/19 02/25/19 00:28 02:00 03:08 Sodium Potassium Chloride Carbon Dioxide Anion Gap BUN Creatinine Creat Clearance w eGFR POC Glucometer 102 99 146 Random Glucose Calcium Phosphorus Total Bilirubin AST ALT Alkaline Phosphatase Total Protein Albumin Urine Osmolality Ur Random Sodium Ur Random Potassium Ur Random Chloride Urine Creatinine Fld Lyme IgM [place]ot Lyme IgG W Blot Interp 02/25/19 02/25/19 02/25/19 05:21 05:30 06:36 Sodium 140 Potassium 4.7 Chloride 106 Carbon Dioxide 28 Anion Gap 6 L BUN 8 Creatinine 0.9 Creat Clearance w eGFR 60.24 POC Glucometer 111 115 Random Glucose 114 H Calcium 7.4 L Phosphorus 1.7 L Total Bilirubin 0.3 AST 20 ALT 18 Alkaline Phosphatase 46 Total Protein 5.4 L Albumin 2.6 L Urine Osmolality Ur Random Sodium Ur Random Potassium Ur Random Chloride Urine Creatinine Fld Lyme IgM [place]ot Lyme IgG W Blot Interp 02/25/19 02/25/19 02/25/19 11:02 17:07 21:23 Sodium Potassium Chloride Carbon Dioxide Anion Gap BUN Creatinine Creat Clearance w eGFR POC Glucometer 101 122 116 Random Glucose Calcium Phosphorus Total Bilirubin AST ALT Alkaline Phosphatase Total Protein Albumin Urine Osmolality Ur Random Sodium Ur Random Potassium Ur Random Chloride Urine Creatinine Fld Lyme IgM [place]ot Lyme IgG W Blot Interp plan: florinef .1mg hs cosyntropin stim test synthroid 25mcg daily ck cortisol and acth level
[2019-02-25] MEDS: FLUDROCORTISONE ACETATE 0.1 MG TABLET (FP) PO SCH (22:28)
[2019-02-25] MEDS: ATORVASTATIN CA 20 MG TABLET (FP) PO SCH (22:29)
[2019-02-26] MEDS: LEVOTHYROXINE NA 25 MCG TABLET (FP) PO SCH (06:21)
[2019-02-26] MEDS: INSULIN SLIDING SCALE (NOVOLOG) 1 VIAL SQ SCH ×4 (06:21→22:59)
[2019-02-26 07:26] LABS: ANION GAP 5 MMOL/L (8-16); BLOOD UREA NITROGEN 10 mg/dL (7-18); CALCIUM 7.5 mg/dL (8.5-10.1); CHLORIDE 111 mmol/L (98-107); CO2 26 mmol/L (21-32); CREATININE 0.9 mg/dL (0.55-1.3); GLUCOSE,RANDOM 97 mg/dL (74-106); MAGNESIUM 1.9 mg/dL (1.8-2.4); PHOSPHOROUS 2.4 mg/dL (2.5-4.9); POTASSIUM 4.3 mmol/L (3.5-5.1); SODIUM 142 mmol/L (136-145)
[2019-02-26] MEDS: COSYNTROPIN 0.25 MG VIAL IVPUSH SCH (08:42)
[2019-02-26] MEDS: D5-1/2NS+40 MEQ KCL - 40 MEQ/1,000 ML INFUS.BAG IV SCH ×3 (10:00→23:53)
--- NOTE | 2019-02-26 11:07 | PN ---
Progress Note, Physician History of Present Illness: PULMONARY ALERT,NO DISTRESS,-CP,-SOB - Current Medication List Current Medications: Active Medications Amlodipine Besylate (Norvasc -) 10 mg PO DAILY [facility] Last Admin: 02/25/19 10:02 Dose: 10 mg Atorvastatin Calcium (Lipitor -) 20 mg PO HS [facility] Last Admin: 02/25/19 22:29 Dose: 20 mg Cosyntropin (Cortrosyn -) 0.25 mg IVPUSH AM [facility] Last Admin: 02/26/19 08:42 Dose: 0.25 mg Fludrocortisone Acetate (Florinef -) 0.1 mg PO DAILY [facility] Last Admin: 02/25/19 22:28 Dose: 0.1 mg Heparin Sodium (Porcine) (Heparin -) 5,000 unit SQ BID [facility] Last Admin: 02/25/19 22:29 Dose: 5,000 unit Hydralazine HCl (Apresoline -) 50 mg PO BID [facility] Last Admin: 02/25/19 22:29 Dose: 50 mg Dextrose/Sodium Chloride (D5-1/2ns+40 Meq Kcl -) 40 meq in 1,000 mls @ 75 mls/ hr IV ASDIR [facility] Last Admin: 02/25/19 12:35 Dose: 75 mls/hr Insulin Aspart (Novolog Vial Sliding Scale -) 1 vial SQ [facility]; Protocol Last Admin: 02/26/19 06:21 Dose: Not Given Levothyroxine Sodium (Synthroid -) 25 mcg PO DAILY@0700 [facility] Last Admin: 02/26/19 06:21 Dose: 25 mcg Potassium Phos/Sodium Phos (Phos-Nak Packet -) 1 packet PO BID [facility] Last Admin: 02/25/19 22:29 Dose: 1 packet - Objective Vital Signs: Vital Signs Temperature 98 F 02/26/19 10:00 Pulse Rate 65 02/26/19 10:00 Respiratory Rate 20 02/26/19 10:00 Blood Pressure 120/50 L 02/26/19 10:00 O2 Sat by Pulse Oximetry (%) 96 02/26/19 06:00 Constitutional: Yes: Well Nourished, Calm Eyes: Yes: WNL HENT: Yes: WNL Neck: Yes: WNL Cardiovascular: Yes: Regular Rate and Rhythm, S1, S2 Respiratory: Yes: CTA Bilaterally Extremities: Yes: WNL Edema: Yes Labs: CBC, BMP 02/24/19 05:30 02/26/19 05:30 INR, PTT INR 0.93 (0.83-1.09) 02/23/19 06:00 Problem List - Problems (1) Weakness Code(s): R53.1 - WEAKNESS (2) Hypertension Code(s): I10 - ESSENTIAL (PRIMARY) HYPERTENSION Qualifiers: Hypertension type: unspecified Qualified Code(s): I10 - Essential (primary ) hypertension (3) Hypothyroidism Code(s): E03.9 - HYPOTHYROIDISM, UNSPECIFIED Qualifiers: Hypothyroidism type: unspecified Qualified Code(s): E03.9 - Hypothyroidism , unspecified (4) Sinus bradycardia Code(s): R00.1 - BRADYCARDIA, UNSPECIFIED (5) URI (upper respiratory infection) Code(s): J06.9 - ACUTE UPPER RESPIRATORY INFECTION, UNSPECIFIED (6) Elevated hemidiaphragm Code(s): J98.6 - DISORDERS OF DIAPHRAGM (7) Thrombocytopenia Code(s): D69.6 - THROMBOCYTOPENIA, UNSPECIFIED Assessment/Plan IMP SYMTOMATIC BRADYCARDIA URI ELEVATED R IRMA-DIAPHRAGM HTN HYPOTHYROID THROMBOCYTOPENIA PLAN BP MEDS PER CARDIOLOGY MONITOR BLOOD SUGARS MONITOR BP MONITOR CBC,PLT CT DR REID Problem List - Problems (1) Weakness Code(s): R53.1 - WEAKNESS (2) Hypertension Code(s): I10 - ESSENTIAL (PRIMARY) HYPERTENSION Qualifiers: Hypertension type: unspecified Qualified Code(s): I10 - Essential (primary ) hypertension (3) Hypothyroidism Code(s): E03.9 - HYPOTHYROIDISM, UNSPECIFIED Qualifiers: Hypothyroidism type: unspecified Qualified Code(s): E03.9 - Hypothyroidism , unspecified (4) Sinus bradycardia Code(s): R00.1 - BRADYCARDIA, UNSPECIFIED (5) URI (upper respiratory infection) Code(s): J06.9 - ACUTE UPPER RESPIRATORY INFECTION, UNSPECIFIED (6) Elevated hemidiaphragm Code(s): J98.6 - DISORDERS OF DIAPHRAGM (7) Thrombocytopenia Code(s): D69.6 - THROMBOCYTOPENIA, UNSPECIFIED
[2019-02-26] MEDS ORDERED: PT OWN MED DRAWER 7, Y5N ONE (12:18)
[2019-02-26] MEDS: HEPARIN NA (PORCINE) 5,000 UNITS/ML 1ML VIAL SQ SCH ×2 (12:30→23:00)
[2019-02-26] MEDS: amLODIPine BESYLATE 10 MG TABLET (FP) PO SCH (12:34)
[2019-02-26] MEDS: hydrALAZINE HCL 50 MG TABLET (FP) PO SCH ×2 (12:34→23:00)
[2019-02-26] MEDS: NAPH,MB-DB/K PH,MBDB POWDER PACKET PO SCH ×2 (12:34→23:00)
[2019-02-26] MEDS: FLUDROCORTISONE ACETATE 0.1 MG TABLET (FP) PO SCH (12:35)
--- NOTE | 2019-02-26 15:37 | PN ---
Progress Note, Physician Chief Complaint: Bradycardia Pancytopenia Weakness History of Present Illness: Previous notes and events reviewed awake and alert NAD denies complaints of chest pain or SOB - Current Medication List Current Medications: Active Medications Amlodipine Besylate (Norvasc -) 10 mg PO DAILY [facility] Last Admin: 02/26/19 12:34 Dose: 10 mg Atorvastatin Calcium (Lipitor -) 20 mg PO HS [facility] Last Admin: 02/25/19 22:29 Dose: 20 mg Cosyntropin (Cortrosyn -) 0.25 mg IVPUSH AM [facility] Last Admin: 02/26/19 08:42 Dose: 0.25 mg Fludrocortisone Acetate (Florinef -) 0.1 mg PO DAILY [facility] Last Admin: 02/26/19 12:35 Dose: 0.1 mg Heparin Sodium (Porcine) (Heparin -) 5,000 unit SQ BID [facility] Last Admin: 02/25/19 22:29 Dose: 5,000 unit Hydralazine HCl (Apresoline -) 50 mg PO BID [facility] Last Admin: 02/26/19 12:34 Dose: 50 mg Dextrose/Sodium Chloride (D5-1/2ns+40 Meq Kcl -) 40 meq in 1,000 mls @ 75 mls/ hr IV ASDIR [facility] Last Admin: 02/26/19 10:00 Dose: 75 mls/hr Insulin Aspart (Novolog Vial Sliding Scale -) 1 vial SQ [facility]; Protocol Last Admin: 02/26/19 12:58 Dose: Not Given Levothyroxine Sodium (Synthroid -) 25 mcg PO DAILY@0700 [facility] Last Admin: 02/26/19 06:21 Dose: 25 mcg Potassium Phos/Sodium Phos (Phos-Nak Packet -) 1 packet PO BID [facility] Last Admin: 02/26/19 12:34 Dose: 1 packet - Objective Vital Signs: Vital Signs Temperature 98 F 02/26/19 10:00 Pulse Rate 65 02/26/19 10:00 Respiratory Rate 20 02/26/19 10:00 Blood Pressure 120/50 L 02/26/19 10:00 O2 Sat by Pulse Oximetry (%) 96 02/26/19 06:00 Constitutional: Yes: No Distress, Calm Eyes: Yes: Conjunctiva Clear HENT: Yes: Atraumatic Cardiovascular: Yes: Regular Rate and Rhythm Respiratory: Yes: Regular, CTA Bilaterally Gastrointestinal: Yes: Normal Bowel Sounds, Soft Musculoskeletal: Yes: Muscle Weakness Extremities: Yes: WNL Edema: Yes Edema: LLE: Trace, RLE: Trace Neurological: Yes: Alert, Oriented Psychiatric: Yes: Alert, Oriented Labs: CBC, BMP 02/24/19 05:30 02/26/19 05:30 INR, PTT INR 0.93 (0.83-1.09) 02/23/19 06:00 Problem List - Problems (1) Elevated hemidiaphragm Assessment/Plan: -pulm on board Code(s): J98.6 - DISORDERS OF DIAPHRAGM (2) Hypertension Assessment/Plan: -continue hydralazine and amlodipine Code(s): I10 - ESSENTIAL (PRIMARY) HYPERTENSION Qualifiers: Hypertension type: unspecified Qualified Code(s): I10 - Essential (primary ) hypertension (3) Hypothyroidism Assessment/Plan: -continue synthroid 25mcg daily Code(s): E03.9 - HYPOTHYROIDISM, UNSPECIFIED Qualifiers: Hypothyroidism type: unspecified Qualified Code(s): E03.9 - Hypothyroidism , unspecified (4) Pancytopenia Assessment/Plan: -hematology on board -PLT 120, WBC 6.3 -monitor CBC daily Code(s): D61.818 - OTHER PANCYTOPENIA (5) Thrombocytopenia Assessment/Plan: -heme on board -abdominal US results reviewed -PLT 120--monitor CBC daily Code(s): D69.6 - THROMBOCYTOPENIA, UNSPECIFIED (6) Prolonged PTT Assessment/Plan: -heme on board -monitor daily -PTT 89.1 Code(s): R79.1 - ABNORMAL COAGULATION PROFILE Assessment/Plan dvt ppx see problem list
[2019-02-26] MEDS: ATORVASTATIN CA 20 MG TABLET (FP) PO SCH (23:00)
--- NOTE | 2019-02-26 23:14 | PN ---
Progress Note (short form) - Note Progress Note: Patient seen and exained c/o rt. shoulder pain afvss Cor: RSR, No murmurs, No gallops Lungs: Clear to P&A Abd: Soft, Normal bowel sounds, No organomegaly Ext:No significant edema Labs/Meds reviewed A/P 78F with HTN, hypothyroidism admitted with hypertensive urgency. Found to have mild thrombocytopenia. Prolonged PTT--check mixing study/Lupus anticoagulant mild throbocytopenia--check B12/folate/TSH/SIFE/U/S abdomen
[2019-02-27 04:11] LABS: HEP B CORE AB, TOT Positive (Negative)
[2019-02-27] MEDS: INSULIN SLIDING SCALE (NOVOLOG) 1 VIAL SQ SCH ×3 (06:06→17:06)
[2019-02-27] MEDS: LEVOTHYROXINE NA 25 MCG TABLET (FP) PO SCH (06:16)
[2019-02-27 07:35] LABS: HEMATOCRIT 32.6 % (32.4-45.2); HEMOGLOBIN 10.7 GM/dL (10.7-15.3); MCH 30.3 pg (25.7-33.7); MCHC 32.8 g/dl (32.0-36.0); MEAN CELL VOLUME 92.5 fl (80-96); MEAN PLT VOLUME 9.7 fl (7.5-11.1); PLATELET COUNT 154 K/MM3 (134-434); RBC 3.53 M/mm3 (3.60-5.2); RDW 14.5 % (11.6-15.6); WHITE BLOOD COUNT 4.8 K/mm3 (4.0-10.0)
[2019-02-27] MEDS ORDERED: PT OWN MED DRAWER 7, Y5N ONE (07:48)
[2019-02-27 08:15] LABS: ALBUMIN 2.7 g/dl (3.4-5.0); ALK PHOS 49 U/L (45-117); ANION GAP 5 MMOL/L (8-16); BILIRUBIN,TOTAL 0.8 mg/dL (0.2-1); BLOOD UREA NITROGEN 8 mg/dL (7-18); CALCIUM 7.3 mg/dL (8.5-10.1); CHLORIDE 110 mmol/L (98-107); CO2 28 mmol/L (21-32); CREATININE 0.9 mg/dL (0.55-1.3); GLUCOSE,RANDOM 93 mg/dL (74-106); POTASSIUM 4.2 mmol/L (3.5-5.1); SGOT/AST 69 U/L (15-37); SGPT/ALT 53 U/L (13-61); SODIUM 143 mmol/L (136-145); TOT PROT 5.2 g/dl (6.4-8.2)
[2019-02-27] MEDS: COSYNTROPIN 0.25 MG VIAL IVPUSH SCH (08:37)
[2019-02-27] MEDS: amLODIPine BESYLATE 10 MG TABLET (FP) PO SCH (09:46)
[2019-02-27] MEDS: HEPARIN NA (PORCINE) 5,000 UNITS/ML 1ML VIAL SQ SCH (09:46)
[2019-02-27] MEDS: hydrALAZINE HCL 50 MG TABLET (FP) PO SCH (09:47)
[2019-02-27] MEDS: NAPH,MB-DB/K PH,MBDB POWDER PACKET PO SCH (09:47)
[2019-02-27] MEDS: FLUDROCORTISONE ACETATE 0.1 MG TABLET (FP) PO SCH (09:47)
--- NOTE | 2019-02-27 10:20 | PN ---
Progress Note, Physician History of Present Illness: pulmonary alert,no distress,-sob,-cp,-cough - Current Medication List Current Medications: Active Medications Amlodipine Besylate (Norvasc -) 10 mg PO DAILY [facility] Last Admin: 02/27/19 09:46 Dose: 10 mg Atorvastatin Calcium (Lipitor -) 20 mg PO HS [facility] Last Admin: 02/26/19 23:00 Dose: 20 mg Cosyntropin (Cortrosyn -) 0.25 mg IVPUSH AM [facility] Last Admin: 02/27/19 08:37 Dose: 0.25 mg Fludrocortisone Acetate (Florinef -) 0.1 mg PO DAILY [facility] Last Admin: 02/27/19 09:47 Dose: 0.1 mg Heparin Sodium (Porcine) (Heparin -) 5,000 unit SQ BID [facility] Last Admin: 02/27/19 09:46 Dose: 5,000 unit Hydralazine HCl (Apresoline -) 50 mg PO BID [facility] Last Admin: 02/27/19 09:47 Dose: 50 mg Dextrose/Sodium Chloride (D5-1/2ns+40 Meq Kcl -) 40 meq in 1,000 mls @ 75 mls/ hr IV ASDIR [facility] Last Admin: 02/26/19 23:53 Dose: 75 mls/hr Insulin Aspart (Novolog Vial Sliding Scale -) 1 vial SQ [facility]; Protocol Last Admin: 02/27/19 06:06 Dose: Not Given Levothyroxine Sodium (Synthroid -) 25 mcg PO DAILY@0700 [facility] Last Admin: 02/27/19 06:16 Dose: 25 mcg Potassium Phos/Sodium Phos (Phos-Nak Packet -) 1 packet PO BID [facility] Last Admin: 02/27/19 09:47 Dose: 1 packet - Objective Vital Signs: Vital Signs Temperature 98.1 F 02/27/19 09:00 Pulse Rate 66 02/27/19 09:00 Respiratory Rate 18 02/27/19 09:00 Blood Pressure 129/49 L 02/27/19 09:00 O2 Sat by Pulse Oximetry (%) 97 02/27/19 09:00 Constitutional: Yes: Well Nourished, Calm Eyes: Yes: WNL HENT: Yes: WNL Neck: Yes: WNL Cardiovascular: Yes: Regular Rate and Rhythm, S1, S2 Respiratory: Yes: CTA Bilaterally Gastrointestinal: Yes: Normal Bowel Sounds, Soft Extremities: Yes: WNL Edema: No Labs: CBC, BMP 02/27/19 05:50 02/27/19 05:50 INR, PTT INR 0.93 (0.83-1.09) 02/23/19 06:00 Problem List - Problems (1) Weakness Code(s): R53.1 - WEAKNESS (2) Hypertension Code(s): I10 - ESSENTIAL (PRIMARY) HYPERTENSION Qualifiers: Hypertension type: unspecified Qualified Code(s): I10 - Essential (primary ) hypertension (3) Hypothyroidism Code(s): E03.9 - HYPOTHYROIDISM, UNSPECIFIED Qualifiers: Hypothyroidism type: unspecified Qualified Code(s): E03.9 - Hypothyroidism , unspecified (4) Sinus bradycardia Code(s): R00.1 - BRADYCARDIA, UNSPECIFIED (5) URI (upper respiratory infection) Code(s): J06.9 - ACUTE UPPER RESPIRATORY INFECTION, UNSPECIFIED (6) Elevated hemidiaphragm Code(s): J98.6 - DISORDERS OF DIAPHRAGM (7) Thrombocytopenia Code(s): D69.6 - THROMBOCYTOPENIA, UNSPECIFIED Assessment/Plan IMP SYMTOMATIC BRADYCARDIA URI ELEVATED R IRMA-DIAPHRAGM HTN HYPOTHYROID THROMBOCYTOPENIA CORRECTED PLAN BP MEDS PER CARDIOLOGY MONITOR BLOOD SUGARS MONITOR BP MONITOR CBC,PLT CT DR REID Problem List - Problems (1) Weakness Code(s): R53.1 - WEAKNESS (2) Hypertension Code(s): I10 - ESSENTIAL (PRIMARY) HYPERTENSION Qualifiers: Hypertension type: unspecified Qualified Code(s): I10 - Essential (primary ) hypertension (3) Hypothyroidism Code(s): E03.9 - HYPOTHYROIDISM, UNSPECIFIED Qualifiers: Hypothyroidism type: unspecified Qualified Code(s): E03.9 - Hypothyroidism , unspecified (4) Sinus bradycardia Code(s): R00.1 - BRADYCARDIA, UNSPECIFIED (5) URI (upper respiratory infection) Code(s): J06.9 - ACUTE UPPER RESPIRATORY INFECTION, UNSPECIFIED (6) Elevated hemidiaphragm Code(s): J98.6 - DISORDERS OF DIAPHRAGM (7) Thrombocytopenia Code(s): D69.6 - THROMBOCYTOPENIA, UNSPECIFIED
--- NOTE | 2019-02-27 11:42 | DS ---
Physical Examination Vital Signs: Vital Signs Temperature 98.1 F 02/27/19 09:00 Pulse Rate 66 02/27/19 09:00 Respiratory Rate 18 02/27/19 09:00 Blood Pressure 129/49 L 02/27/19 09:00 O2 Sat by Pulse Oximetry (%) 97 02/27/19 09:00 Findings/Remarks: 78 F with hypothyroidism and HTN. and 3 weeks of cough, congestion and then went to her PCP office noticed to have bradycardia and was sent to the ER. She takes synthroid and bystolic which are not new medications. Labs: CBC, BMP 02/27/19 05:50 02/27/19 05:50 Discharge Summary Reason For Visit: SINUS BRADYCARDIA,HYPOTHYROIDISM,HYPERTENSION Current Active Problems Elevated hemidiaphragm (Acute) Hypertension (Acute) Hypoglycemia (Acute) Hypokalemia (Acute) Hypothyroidism (Acute) Pancytopenia (Acute) Prolonged PTT (Acute) Sinus bradycardia (Acute) Thrombocytopenia (Acute) URI (upper respiratory infection) (Acute) Weakness (Acute) Hospital Course: Laboratory Last Values WBC 4.8 K/mm3 (4.0-10.0) 02/27/19 05:50 RBC 3.53 M/mm3 (3.60-5.2) L 02/27/19 05:50 Hgb 10.7 GM/dL (10.7-15.3) 02/27/19 05:50 Hct 32.6 % (32.4-45.2) 02/27/19 05:50 MCV 92.5 fl (80-96) 02/27/19 05:50 MCH 30.3 pg (25.7-33.7) 02/27/19 05:50 MCHC 32.8 g/dl (32.0-36.0) 02/27/19 05:50 RDW 14.5 % (11.6-15.6) 02/27/19 05:50 Plt Count 154 K/MM3 (134-434) D 02/27/19 05:50 MPV 9.7 fl (7.5-11.1) 02/27/19 05:50 Absolute Neuts (auto) 5.0 K/mm3 (1.5-8.0) 02/24/19 05:30 Neutrophils % 79.3 % (42.8-82.8) D 02/24/19 05:30 Neutrophils % (Manual) 37.7 % (42.8-82.8) L 02/23/19 06:00 Band Neutrophils % 1.0 % 02/23/19 06:00 Lymphocytes % 11.7 % (8-40) D 02/24/19 05:30 Lymphocytes % (Manual) 35.7 % (8-40) 02/23/19 06:00 Monocytes % 8.8 % (3.8-10.2) 02/24/19 05:30 Monocytes % (Manual) 13 % (3.8-10.2) H 02/23/19 06:00 Eosinophils % 0.1 % (0-4.5) D 02/24/19 05:30 Eosinophils % (Manual) 3.1 % (0-4.5) 02/23/19 06:00 Basophils % 0.1 % (0-2.0) 02/24/19 05:30 Basophils % (Manual) 0.0 % (0-2.0) 02/23/19 06:00 Myelocytes % (Man) 0 % (0-2) 02/23/19 06:00 Promyelocytes % (Man) 0 % (0-2) 02/23/19 06:00 Blast Cells % (Manual) 0 % (0-0) 02/23/19 06:00 Nucleated RBC % 0 % (0-0) 02/24/19 05:30 Metamyelocytes 0 % (0-2) 02/23/19 06:00 Manual Slide Review Cancelled 02/22/19 13:03 Hypochromia 0 02/23/19 06:00 Platelet Estimate Decreased 02/23/19 06:00 Polychromasia 0 02/23/19 06:00 Poikilocytosis 0 02/23/19 06:00 Anisocytosis 0 02/23/19 06:00 Microcytosis 0 02/23/19 06:00 Macrocytosis 1+ 02/23/19 06:00 Ovalocytes 1+ 02/23/19 06:00 Retic Count 0.71 % (0.5-1.5) 02/24/19 05:30 PT with INR 11.00 SEC (9.7-13.0) 02/23/19 06:00 INR 0.93 (0.83-1.09) 02/23/19 06:00 PTT (Actin FS) 43.5 SECONDS (25.2-36.5) H 02/27/19 05:50 Sodium 143 mmol/L (136-145) 02/27/19 05:50 Potassium 4.2 mmol/L (3.5-5.1) 02/27/19 05:50 Chloride 110 mmol/L (98-107) H 02/27/19 05:50 Carbon Dioxide 28 mmol/L (21-32) 02/27/19 05:50 Anion Gap 5 MMOL/L (8-16) L 02/27/19 05:50 BUN 8 mg/dL (7-18) 02/27/19 05:50 Creatinine 0.9 mg/dL (0.55-1.3) 02/27/19 05:50 Creat Clearance w eGFR 60.24 (>60) 02/27/19 05:50 POC Glucometer 118 UNITS (80-120) 02/27/19 11:12 Random Glucose 93 mg/dL (74-106) 02/27/19 05:50 Hemoglobin A1c % 5.4 % (4.2-6.3) 02/24/19 05:30 Serum Osmolality 286 mosm/kg (278-305) 02/24/19 15:01 Calcium 7.3 mg/dL (8.5-10.1) L 02/27/19 05:50 Phosphorus 2.4 mg/dL (2.5-4.9) L 02/26/19 05:30 Magnesium 1.9 mg/dL (1.8-2.4) 02/26/19 05:30 Iron 85 ug/dL (27-139) 02/26/19 05:30 Ferritin 200.8 ng/ml (8-388) 02/26/19 05:30 Total Bilirubin 0.8 mg/dL (0.2-1) 02/27/19 05:50 AST 69 U/L (15-37) H 02/27/19 05:50 ALT 53 U/L (13-61) 02/27/19 05:50 Alkaline Phosphatase 49 U/L (45-117) 02/27/19 05:50 Troponin I < 0.02 ng/ml (0.00-0.05) 02/22/19 13:03 Total Protein 5.2 g/dl (6.4-8.2) L 02/27/19 05:50 Total Protein (PEP) 5.5 g/dL (6.0-8.5) L 02/24/19 05:30 Albumin 2.7 g/dl (3.4-5.0) L 02/27/19 05:50 Albumin (PEP) 3.2 gm/dl (2.9-4.4) 02/24/19 05:30 Globulin 2.3 g/dL (2.2-3.9) 02/24/19 05:30 Albumin/Globulin Ratio 1.4 (0.7-1.7) 02/24/19 05:30 Beta Globulins 0.8 gm/dL (0.7-1.3) 02/24/19 05:30 Vitamin B12 524 pg/ml (193-986) 02/23/19 06:00 Serum Folate 12 ng/mL (3.1-17.5) 02/26/19 05:30 TSH 1.93 uIU/ml (0.358-3.74) 02/24/19 14:30 Free T4 0.77 ng/dl (0.76-1.46) 02/22/19 13:03 Cortisol 30 Minute 17.00 mcg/dL (.) 02/26/19 09:12 Cortisol 60 Minute 16.3 ug/dL (.) 02/26/19 09:42 Cortisol AM Sample 19.4 ug/dL (6.2-19.4) 02/24/19 13:31 Urine Osmolality 300 mosm/kg (300-900) 02/24/19 21:57 Ur Random Sodium 36 MMOL/L (40-220) L 02/24/19 21:57 Ur Random Potassium 49.6 MMOL/L (25-125) 02/24/19 21:57 Ur Random Chloride 52 MMOL/L (110-250) L 02/24/19 21:57 Urine Creatinine 59.0 mg/dL (20-275) 02/24/19 21:57 Fld Lyme IgM West Blot No Result Required. 02/22/19 13:03 GUILLERMO M-Will Not observed g/dL (Not Observed) 02/24/19 05:30 Serum GUILLERMO Interpret (.) 02/24/19 05:30 IEP IgG 940 mg/dL (700-1600) 02/24/19 05:30 IEP IgA 348 mg/dL (64-422) 02/24/19 05:30 IEP IgM 47 mg/dL (26-217) 02/24/19 05:30 POLY Screen Negative (.) 02/24/19 05:30 Heparin-Ind Plt Ab Scrn 0.216 OD (0.000-0.400) 02/24/19 05:30 Lyme Screen IgG & IgM <0.91 ISR (0.00-0.90) 02/22/19 13:03 Lyme IgG W Blot Interp No Result Required. 02/22/19 13:03 Hep Bs Antibody, Quant >1000.0 mIU/mL (Immunity>9.9) 02/26/19 05:30 Hep B Core Total Ab Positive (Negative) H 02/26/19 05:30 Vital Signs Temp 98.1 F 02/27/19 09:00 Pulse 66 02/27/19 09:00 Resp 18 02/27/19 09:00 BP 129/49 L 02/27/19 09:00 Pulse Ox 97 02/27/19 09:00 Intake & Output 02/26/19 02/26/19 02/27/19 11:59 23:59 11:59 Intake Total 1100 300 535 Balance 1100 300 535 Intake: IV 900 300 535 D5-1/2NS+40 MEQ KCL - 40 900 300 525 meq In 1,000 ml @ 75 mls/ hr IV [facility] Rx#: [id number] saline lock 10 Oral 200 Other: Voiding Method Toilet Toilet Toilet # Unmeasured Voids Void 2 Bowel Movement No Condition: Stable - Instructions Diet, Activity, Other Instructions: -Started on Florinef and Dexamethasone -Repeat CBC/CMP in 1 week -Follow up with Dr Aguila and Dr Grant in 2-3 weeks Referrals: Juanita Live MD [Staff Physician] - Dimas Aguila MD [Staff Physician] - Disposition: [facility] - Home Medications Comprehensive Discharge Medication List: Ambulatory Orders Levothyroxine [Synthroid -] 25 mcg PO DAILY 01/07/19 Nebivolol [Bystolic -] 5 mg PO DAILY 01/07/19 Aspirin 81 mg PO DAILY 02/22/19 Calcium Carbonate/Vitamin D3 [Calcium 600 + Vit D Tablet] 1 each PO DAILY Cholecalciferol (Vitamin D3) [Vitamin D3] 1,000 unit PO DAILY 02/22/19 Furosemide [Lasix -] 20 mg PO DAILY 02/22/19 Pitavastatin Calcium [Livalo] 4 mg PO DAILY 02/22/19
--- NOTE | 2019-02-27 12:32 | PN ---
Progress Note, Physician Chief Complaint: weakness and low bp History of Present Illness: adrenal suppression,hypotension,hypoglycemia - Current Medication List Current Medications: Active Medications Amlodipine Besylate (Norvasc -) 10 mg PO DAILY [facility] Last Admin: 02/27/19 09:46 Dose: 10 mg Atorvastatin Calcium (Lipitor -) 20 mg PO HS [facility] Last Admin: 02/26/19 23:00 Dose: 20 mg Cosyntropin (Cortrosyn -) 0.25 mg IVPUSH AM [facility] Last Admin: 02/27/19 08:37 Dose: 0.25 mg Fludrocortisone Acetate (Florinef -) 0.1 mg PO DAILY [facility] Last Admin: 02/27/19 09:47 Dose: 0.1 mg Heparin Sodium (Porcine) (Heparin -) 5,000 unit SQ BID [facility] Last Admin: 02/27/19 09:46 Dose: 5,000 unit Hydralazine HCl (Apresoline -) 50 mg PO BID [facility] Last Admin: 02/27/19 09:47 Dose: 50 mg Insulin Aspart (Novolog Vial Sliding Scale -) 1 vial SQ [facility]; Protocol Last Admin: 02/27/19 12:01 Dose: Not Given Levothyroxine Sodium (Synthroid -) 25 mcg PO DAILY@0700 [facility] Last Admin: 02/27/19 06:16 Dose: 25 mcg Potassium Phos/Sodium Phos (Phos-Nak Packet -) 1 packet PO BID [facility] Last Admin: 02/27/19 09:47 Dose: 1 packet - Objective Vital Signs: Vital Signs Temperature 98.1 F 02/27/19 09:00 Pulse Rate 66 02/27/19 09:00 Respiratory Rate 18 02/27/19 09:00 Blood Pressure 129/49 L 02/27/19 09:00 O2 Sat by Pulse Oximetry (%) 97 02/27/19 09:00 Constitutional: Yes: Calm Eyes: Yes: EOM Intact HENT: Yes: Normocephalic Neck: Yes: Trachea Midline Cardiovascular: Yes: Regular Rate and Rhythm Respiratory: Yes: CTA Bilaterally Gastrointestinal: Yes: Normal Bowel Sounds ...Rectal Exam: Yes: Deferred Genitourinary: Yes: WNL Musculoskeletal: Yes: WNL Extremities: Yes: WNL Edema: No Psychiatric: Yes: Alert, Oriented Labs: CBC, BMP 02/27/19 05:50 02/27/19 05:50 INR, PTT INR 0.93 (0.83-1.09) 02/23/19 06:00 Problem List - Problems (1) Hypoglycemia Code(s): E16.2 - HYPOGLYCEMIA, UNSPECIFIED (2) Hypokalemia Code(s): E87.6 - HYPOKALEMIA (3) Hypothyroidism Code(s): E03.9 - HYPOTHYROIDISM, UNSPECIFIED Qualifiers: Hypothyroidism type: unspecified Qualified Code(s): E03.9 - Hypothyroidism , unspecified (4) Pancytopenia Code(s): D61.818 - OTHER PANCYTOPENIA (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 - UNSPECIFIED ADRENOCORTICAL INSUFFICIENCY Assessment/Plan Current Active Problems Elevated hemidiaphragm (Acute) Hypertension (Acute) Hypoadrenocorticism (Acute) Hypoglycemia (Acute) Hypokalemia (Acute) Hypothyroidism (Acute) Pancytopenia (Acute) Prolonged PTT (Acute) Sinus bradycardia (Acute) Thrombocytopenia (Acute) URI (upper respiratory infection) (Acute) Weakness (Acute) Abnormal Lab Results 02/24/19 02/26/19 02/27/19 05:30 05:30 05:50 RBC 3.53 L PTT (Actin FS) Chloride Anion Gap Calcium AST Total Protein Total Protein (PEP) 5.5 L Albumin Hep B Core Total Ab Positive H 02/27/19 02/27/19 05:50 05:50 RBC PTT (Actin FS) 43.5 H Chloride 110 H Anion Gap 5 L Calcium 7.3 L AST 69 H Total Protein 5.2 L Total Protein (PEP) Albumin 2.7 L Hep B Core Total Ab Laboratory Results - last 24 hr 02/24/19 02/24/19 02/24/19 05:30 05:30 05:30 WBC RBC Hgb Hct MCV MCH MCHC RDW Plt Count MPV PTT (Actin FS) Sodium Potassium Chloride Carbon Dioxide Anion Gap BUN Creatinine Creat Clearance w eGFR POC Glucometer Random Glucose Calcium Iron Total Bilirubin AST ALT Alkaline Phosphatase Total Protein Total Protein (PEP) Albumin Albumin (PEP) Globulin Albumin/Globulin Ratio Mjgcz-1-Igkwhjixz (%) Cancelled Wjwvx-4-Sisvcrpui (%) Cancelled Beta Globulins Beta Globulins (%) Cancelled Gamma Globulins (%) Cancelled M-Will % Cancelled Cortisol 30 Minute Cortisol 60 Minute Cortisol AM Sample GUILLERMO M-Will Serum GUILLERMO Interpret IEP IgG 940 IEP IgA 348 IEP IgM 47 POLY Screen Negative Heparin-Ind Plt Ab Scrn 0.216 Hep Bs Antibody, Quant Hep B Core Total Ab Ref Test Comments Cancelled 02/24/19 02/24/19 02/26/19 05:30 13:31 05:30 WBC RBC Hgb Hct MCV MCH MCHC RDW Plt Count MPV PTT (Actin FS) Sodium Potassium Chloride Carbon Dioxide Anion Gap BUN Creatinine Creat Clearance w eGFR POC Glucometer Random Glucose Calcium Iron 85 Total Bilirubin AST ALT Alkaline Phosphatase Total Protein Total Protein (PEP) 5.5 L Albumin Albumin (PEP) 3.2 Globulin 2.3 Albumin/Globulin Ratio 1.4 Kjvlu-8-Txjqhvbbi (%) Yiinu-6-Lcahzidxa (%) Beta Globulins 0.8 Beta Globulins (%) Gamma Globulins (%) M-Will % Cortisol 30 Minute Cortisol 60 Minute Cortisol AM Sample 19.4 GUILLERMO M-Will Not observed Serum GUILLERMO Interpret IEP IgG IEP IgA IEP IgM POLY Screen Heparin-Ind Plt Ab Scrn Hep Bs Antibody, Quant >1000.0 Hep B Core Total Ab Positive H Ref Test Comments 02/26/19 02/26/19 02/26/19 09:12 09:42 12:54 WBC RBC Hgb Hct MCV MCH MCHC RDW Plt Count MPV PTT (Actin FS) Sodium Potassium Chloride Carbon Dioxide Anion Gap BUN Creatinine Creat Clearance w eGFR POC Glucometer 132 Random Glucose Calcium Iron Total Bilirubin AST ALT Alkaline Phosphatase Total Protein Total Protein (PEP) Albumin Albumin (PEP) Globulin Albumin/Globulin Ratio Pjxuf-7-Qolmqsjxz (%) Arzgd-7-Vvgqzqoat (%) Beta Globulins Beta Globulins (%) Gamma Globulins (%) M-Will % Cortisol 30 Minute 17.00 Cortisol 60 Minute 16.3 Cortisol AM Sample GUILLERMO M-Will Serum GUILLERMO Interpret IEP IgG IEP IgA IEP IgM POLY Screen Heparin-Ind Plt Ab Scrn Hep Bs Antibody, Quant Hep B Core Total Ab Ref Test Comments 02/26/19 02/26/19 02/27/19 16:44 22:58 05:48 WBC RBC Hgb Hct MCV MCH MCHC RDW Plt Count MPV PTT (Actin FS) Sodium Potassium Chloride Carbon Dioxide Anion Gap BUN Creatinine Creat Clearance w eGFR POC Glucometer 119 93 96 Random Glucose Calcium Iron Total Bilirubin AST ALT Alkaline Phosphatase Total Protein Total Protein (PEP) Albumin Albumin (PEP) Globulin Albumin/Globulin Ratio Ywguz-5-Smnomyrox (%) Izrie-9-Kcqrknpjx (%) Beta Globulins Beta Globulins (%) Gamma Globulins (%) M-Will % Cortisol 30 Minute Cortisol 60 Minute Cortisol AM Sample GUILLERMO M-Will Serum GUILLERMO Interpret IEP IgG IEP IgA IEP IgM POLY Screen Heparin-Ind Plt Ab Scrn Hep Bs Antibody, Quant Hep B Core Total Ab Ref Test Comments 02/27/19 02/27/19 02/27/19 05:50 05:50 05:50 WBC 4.8 RBC 3.53 L Hgb 10.7 Hct 32.6 MCV 92.5 MCH 30.3 MCHC 32.8 RDW 14.5 Plt Count 154 D MPV 9.7 PTT (Actin FS) 43.5 H Sodium 143 Potassium 4.2 Chloride 110 H Carbon Dioxide 28 Anion Gap 5 L BUN 8 Creatinine 0.9 Creat Clearance w eGFR 60.24 POC Glucometer Random Glucose 93 Calcium 7.3 L Iron Total Bilirubin 0.8 AST 69 H ALT 53 Alkaline Phosphatase 49 Total Protein 5.2 L Total Protein (PEP) Albumin 2.7 L Albumin (PEP) Globulin Albumin/Globulin Ratio Sqwvt-3-Oippwvdcf (%) Poefn-2-Fffzdewtp (%) Beta Globulins Beta Globulins (%) Gamma Globulins (%) M-Will % Cortisol 30 Minute Cortisol 60 Minute Cortisol AM Sample GUILLERMO M-Will Serum GUILLERMO Interpret IEP IgG IEP IgA IEP IgM POLY Screen Heparin-Ind Plt Ab Scrn Hep Bs Antibody, Quant Hep B Core Total Ab Ref Test Comments 02/27/19 11:12 WBC RBC Hgb Hct MCV MCH MCHC RDW Plt Count MPV PTT (Actin FS) Sodium Potassium Chloride Carbon Dioxide Anion Gap BUN Creatinine Creat Clearance w eGFR POC Glucometer 118 Random Glucose Calcium Iron Total Bilirubin AST ALT Alkaline Phosphatase Total Protein Total Protein (PEP) Albumin Albumin (PEP) Globulin Albumin/Globulin Ratio Ftoet-7-Fkokogydp (%) Ydzzb-8-Mxmnrzoqf (%) Beta Globulins Beta Globulins (%) Gamma Globulins (%) M-Will % Cortisol 30 Minute Cortisol 60 Minute Cortisol AM Sample GUILLERMO M-Will Serum GUILLERMO Interpret IEP IgG IEP IgA IEP IgM POLY Screen Heparin-Ind Plt Ab Scrn Hep Bs Antibody, Quant Hep B Core Total Ab Ref Test Comments Laboratory Tests 02/26/19 02/26/19 09:12 09:42 Cortisol 30 Minute 17.00 Cortisol 60 Minute 16.3 plan: neymra .1mghs dexamethasone 2mg titrate dose as outpatient will reevaluate with bmp and cortisol leve outpatient
[2019-02-27 17:57] VITALS: PULSE 72
[2019-02-27 18:15] LABS: HGB SOLUBILITY Negative (Negative); Hgb A 97.9 % (96.4-98.8); Hgb C 0 % (0.0); Hgb F 0 % (0.0-2.0); Hgb S 0 % (0.0)
[2019-02-27 19:42] VITALS: BP 114/56; TEMP 98
[2019-02-28] MEDS ORDERED: DEXAMETHASONE 4 MG TABLET (FP) PO SCH (07:00)
[2019-03-01 12:07] LABS: IGA IMMUNOGLOBULIN 348; IGG IMMUNOGLOBULIN 940; IGM IMMUNOGLOBULIN 47
[2019-03-01 17:17] LABS: DRVVT - 33.8 sec (0.0-47.0)
== END 2019-02-27 20:00 | DRG 309 ==
LOC: JER 12:58 → JERBED 14:26 → J4W 18:01 → OBSVTOIN 02-23 09:37
PROVIDERS: ADMIT Family Medicine; ATTEND Family Medicine
DX: R00.1 Bradycardia, unspecified (principal); D61.818 Other pancytopenia; E27.40 Unspecified adrenocortical insufficiency; E03.9 Hypothyroidism, unspecified; R53.1 Weakness; J06.9 Acute upper respiratory infection, unspecified; J98.6 Disorders of diaphragm; I08.1 Rheumatic disorders of both mitral and tricuspid valves; E16.2 Hypoglycemia, unspecified; E87.6 Hypokalemia; R79.1 Abnormal coagulation profile; D69.6 Thrombocytopenia, unspecified; I10 Essential (primary) hypertension; I16.0 Hypertensive urgency
CPT/HCPCS: 36415; 71045-TC-FY; 71250-TC; 76700-TC; 80048; 80053; 82024; 82436; 82533; 82570; 82607; 82728; 82746; 82784; 82962; 83021; 83036; 83525; 83540; 83735; 83930; 83935; 84100; 84133; 84155; 84156; 84157; 84165; 84300; 84439; 84443; 84484; 85025; 85027; 85044; 85610; 85613; 85660; 85730; 85732; 86022; 86038; 86317; 86618; 86704; 87040; 87086; 93005; 93010; 93306-TC; 93971-TC; 97116-GP; 97161-GP; 99282-25; G0378; J0834; J1644

== ENCOUNTER 2019-03-26 11:28 | Inpatient (IN) | payer OTHER ==
--- NOTE | 2019-03-26 11:47 | PDOC ---
History of Present Illness - General Stated Complaint: Edema Time Seen by Provider: 03/26/19 11:47 History Source: Patient, Primary Care Provider Exam Limitations: No Limitations - History of Present Illness Initial Comments: 78 yo F history HTN, HL presents with significant BLE swelling. She was sent by Dr. Awad after outpatient treatment with lasix failed. She denies SOB, cp. She has had recent LUQ pain, no vomiting, no nausea, no diarrhea. No recent fevers. She states she has had swollen legs for quite awhile, but it is significantly worse. Past History - Past Medical History Allergies/Adverse Reactions: Allergies Allergy/AdvReac Type Severity Reaction Status Date / Time No Known Allergies Allergy Verified 02/22/19 13:11 Home Medications: Ambulatory Orders Amlodipine Besylate [Norvasc -] 10 mg PO DAILY tablet 02/27/19 Atorvastatin Ca [Lipitor] 20 mg PO HS tablet 02/27/19 Dexamethasone [Decadron -] 2 mg PO AM tablet 02/27/19 Fludrocortisone Acetate [Florinef -] 0.1 mg PO HS tablet 02/27/19 Levothyroxine [Synthroid -] 25 mcg PO DAILY@0700 tablet 02/27/19 Naph,Mb-Db/K pH,Mbdb [PHOS-NaK PACKET -] 1 packet PO BID pow 02/27/19 hydrALAZINE HCL [Apresoline -] 50 mg PO BID tablet 02/27/19 Aspirin [ASA -] 81 mg PO DAILY 03/26/19 Calcium Carbonate/Vitamin D3 [Calcium 600 + Vit D 200 Tablet] 1 each PO DAILY Cholecalciferol (Vitamin D3) [Vitamin D3 -] 1,000 unit PO DAILY 03/26/19 Furosemide [Lasix -] 40 mg PO DAILY 03/26/19 Losartan Potassium 50 mg PO DAILY 03/26/19 Pitavastatin Calcium [Livalo] 4 mg PO DAILY 03/26/19 Anemia: Yes COPD: No HTN: Yes Hypercholesterolemia: Yes Thyroid Disease: Yes (hypo) - Surgical History Appendectomy: Yes - Suicide/Smoking/Psychosocial Hx Smoking History: Never smoked Have you smoked in the past 12 months: No Hx Alcohol Use: No Drug/Substance Use Hx: No Substance Use Type: None Hx Substance Use Treatment: No Review of Systems - Review of Systems Able to Perform ROS?: Yes Comments:: GENERAL/CONSTITUTIONAL: No fever or chills. No weakness. HEAD, EYES, EARS, NOSE AND THROAT: No change in vision. No ear pain or discharge. No sore throat. CARDIOVASCULAR: No chest pain or shortness of breath. RESPIRATORY: No cough, wheezing, or hemoptysis. GASTROINTESTINAL: No nausea, vomiting, diarrhea or constipation. GENITOURINARY: No dysuria, frequency, or change in urination. MUSCULOSKELETAL: No joint or muscle swelling or pain. No neck or back pain. + BLE swelling SKIN: No rash. NEUROLOGIC: No headache, vertigo, loss of consciousness, or change in strength/ sensation. ENDOCRINE: No increased thirst. No abnormal weight change. HEMATOLOGIC/LYMPHATIC: No anemia, easy bleeding, or history of blood clots. ALLERGIC/IMMUNOLOGIC: No hives or skin allergy. *Physical Exam - Physical Exam Comments: GENERAL: Awake, alert, and fully oriented, in no acute distress HEAD: No signs of trauma EYES: PERRLA, EOMI, sclera anicteric, conjunctiva clear ENT: Auricles normal inspection, hearing grossly normal, nares patent, oropharynx clear without exudates. Moist mucosa NECK: Normal ROM, supple, no lymphadenopathy, JVD, or masses LUNGS: Breath sounds equal, clear to auscultation bilaterally. No wheezes, and no crackles HEART: Regular rate and rhythm, normal S1 and S2, no murmurs, rubs or gallops ABDOMEN: Soft, nontender, normoactive bowel sounds. No guarding, no rebound. No masses EXTREMITIES: Normal range of motion, 4+ pitting edema BLE. No clubbing or cyanosis. No cords, erythema, or tenderness NEUROLOGICAL: Cranial nerves II through XII grossly intact. Normal speech, normal gait. Motor and sensation intact SKIN: Warm, Dry, normal turgor, no rashes or lesions noted. ED Treatment Course - LABORATORY CBC & Chemistry Diagram: 03/26/19 12:11 03/26/19 12:11 Medical Decision Making - Medical Decision Making 03/26/19 13:58 Case d/w Dr. Matt. Patient was on outpatient lasix for leg swelling which has continued to worsen. No known inciting factors. Workup shows negative troponin and normal kidney function. BNP is slightly elevated. Prior echo from visit in February of this year showed normal EF. Will admit for IV lasix, as she has failed outpatient treatment. *DC/Admit/Observation/Transfer Diagnosis at time of Disposition: Peripheral edema - Discharge Dispostion Condition at time of disposition: Stable Decision to Admit order: Yes - Referrals - Patient Instructions - Post Discharge Activity
[2019-03-26 12:20] VITALS: BMI 31.4
[2019-03-26 12:22] LABS: BASO % 0.5 % (0-2.0); EOS % 0.1 % (0-4.5); HEMATOCRIT 35.6 % (32.4-45.2); HEMOGLOBIN 11.4 GM/dL (10.7-15.3); LYMPH % 5.8 % (8-40); MCH 30.6 pg (25.7-33.7); MCHC 32.1 g/dl (32.0-36.0); MEAN CELL VOLUME 95.6 fl (80-96); MEAN PLT VOLUME 8.7 fl (7.5-11.1); NEUT % 87.6 % (42.8-82.8); PLATELET COUNT 132 K/MM3 (134-434); RBC 3.72 M/mm3 (3.60-5.2); RDW 16.1 % (11.6-15.6)
[2019-03-26 12:53] LABS: ALBUMIN 3.2 g/dl (3.4-5.0); ALK PHOS 123 U/L (45-117); ANION GAP 4 MMOL/L (8-16); BILIRUBIN,TOTAL 0.4 mg/dL (0.2-1); BLOOD UREA NITROGEN 36 mg/dL (7-18); CALCIUM 8.2 mg/dL (8.5-10.1); CHLORIDE 98 mmol/L (98-107); CO2 36 mmol/L (21-32); GLUCOSE,RANDOM 121 mg/dL (74-106); N-TERMINAL BNP 1072.2 pg/ml (5-450); POTASSIUM 3.6 mmol/L (3.5-5.1); SGOT/AST 34 U/L (15-37); SGPT/ALT 104 U/L (13-61); SODIUM 139 mmol/L (136-145)
[2019-03-26] MEDS ORDERED: FUROSEMIDE 40 MG/4 ML INJECTABLE VIAL IVPUSH ONE (13:35)
[2019-03-26] MEDS ORDERED: FUROSEMIDE 40 MG/4 ML INJECTABLE VIAL ONE (14:18)
--- NOTE | 2019-03-26 14:39 | HP ---
Admitting History and Physical - Primary Care Physician PCP: Jacque Awad - Admission Chief Complaint: inc leg edema History of Present Illness: 78 yo F history HTN, HL presents with significant BLE swelling. She was sent by Dr. Awad after outpatient treatment with lasix failed. She denies SOB, cp. She has had recent LUQ pain, no vomiting, no nausea, no diarrhea. No recent fevers. She states she has had swollen legs for quite awhile, but it is significantly worse. saw PMD today stop norvasc and start metalazone and told to come to ER - Past Medical History Cardiovascular: Yes: HTN - Smoking History Smoking history: Never smoked Have you smoked in the past 12 months: No - Alcohol/Substance Use Hx Alcohol Use: No Home Medications - Allergies Allergies/Adverse Reactions: Allergies Allergy/AdvReac Type Severity Reaction Status Date / Time No Known Allergies Allergy Verified 02/22/19 13:11 - Home Medications Home Medications: Ambulatory Orders Amlodipine Besylate [Norvasc -] 10 mg PO DAILY tablet 02/27/19 Atorvastatin Ca [Lipitor] 20 mg PO HS tablet 02/27/19 Dexamethasone [Decadron -] 2 mg PO AM tablet 02/27/19 Fludrocortisone Acetate [Florinef -] 0.1 mg PO HS tablet 02/27/19 Levothyroxine [Synthroid -] 25 mcg PO DAILY@0700 tablet 02/27/19 Naph,Mb-Db/K pH,Mbdb [PHOS-NaK PACKET -] 1 packet PO BID pow 02/27/19 hydrALAZINE HCL [Apresoline -] 50 mg PO BID tablet 02/27/19 Aspirin [ASA -] 81 mg PO DAILY 03/26/19 Calcium Carbonate/Vitamin D3 [Calcium 600 + Vit D 200 Tablet] 1 each PO DAILY Cholecalciferol (Vitamin D3) [Vitamin D3 -] 1,000 unit PO DAILY 03/26/19 Furosemide [Lasix -] 40 mg PO DAILY 03/26/19 Losartan Potassium 50 mg PO DAILY 03/26/19 Pitavastatin Calcium [Livalo] 4 mg PO DAILY 03/26/19 Physical Examination Vital Signs: Vital Signs Temperature 98.1 F 03/26/19 11:47 Pulse Rate 73 03/26/19 11:47 Respiratory Rate 18 03/26/19 11:47 Blood Pressure 118/37 L 03/26/19 14:30 O2 Sat by Pulse Oximetry (%) 100 03/26/19 11:47 Labs: CBC, BMP 03/26/19 12:11 03/26/19 12:11 Problem List - Problems (1) Peripheral edema Assessment/Plan: doppler of legs r/o dvt lasix iv bid caridology daily weights Code(s): R60.9 - EDEMA, UNSPECIFIED (2) Hypoadrenocorticism Assessment/Plan: florinef HS Code(s): E27.40 - UNSPECIFIED ADRENOCORTICAL INSUFFICIENCY (3) Hypothyroidism Assessment/Plan: synthroid 25 mcg daily tsh Code(s): E03.9 - HYPOTHYROIDISM, UNSPECIFIED Qualifiers: Hypothyroidism type: unspecified Qualified Code(s): E03.9 - Hypothyroidism , unspecified (4) Hypertension Assessment/Plan: given leg edema stop amlodipine if needed binh use losaratan Code(s): I10 - ESSENTIAL (PRIMARY) HYPERTENSION Qualifiers: Hypertension type: unspecified Qualified Code(s): I10 - Essential (primary ) hypertension
--- NOTE | 2019-03-26 14:47 | PN ---
Progress Note (short form) - Note Progress Note: cxr noted possible retained stool will check abdominal xray miralax Problem List - Problems (1) Peripheral edema Code(s): R60.9 - EDEMA, UNSPECIFIED (2) Hypoadrenocorticism Code(s): E27.40 - UNSPECIFIED ADRENOCORTICAL INSUFFICIENCY (3) Hypothyroidism Code(s): E03.9 - HYPOTHYROIDISM, UNSPECIFIED Qualifiers: Hypothyroidism type: unspecified Qualified Code(s): E03.9 - Hypothyroidism , unspecified (4) Hypertension Code(s): I10 - ESSENTIAL (PRIMARY) HYPERTENSION Qualifiers: Hypertension type: unspecified Qualified Code(s): I10 - Essential (primary ) hypertension
--- NOTE | 2019-03-26 15:09 | EKG ---
Test Reason : Blood Pressure : / mmHG Vent. Rate : 069 BPM Atrial Rate : 069 BPM P-R Int : 146 ms QRS Dur : 066 ms QT Int : 426 ms P-R-T Axes : 060 025 036 degrees QTc Int : 456 ms NORMAL SINUS RHYTHM NORMAL ECG WHEN COMPARED WITH ECG OF 22-FEB-2019 13:10, VENT. RATE HAS INCREASED BY 30 BPM Confirmed by SERAFIN MONTES MD ([id number]) on 03/26/2019 3:09:02 PM Referred By: Confirmed By:SERAFIN MONTES MD
--- NOTE | 2019-03-26 16:57 | CON.CARD ---
Consult Consult Specialty:: Cardiology Referred by:: Dr. Matt/Ritesh Reason for Consultation:: LE edema - History of Present Illness Chief Complaint: LE edema History of Present Illness: 78 year old woman with pmh hypothyroid, recent admission with URI and fatigue with sinus bradycardia which improved after stopping AV johnathan blockers, now admitted with worsening b/l LE edema which did not improve with lasix as outpatient. Of note pt was started on amlodipine after last admission to replace her bblocker that was stopped. pt seen and examined today in nad. denies any chest pain or sob. also notes LUQ pain that is tender to palpation. - History Source History Provided By: Patient, Medical Record Limitations to Obtaining History: No Limitations - Past Medical History Cardio/Vascular: Yes: HTN - Alcohol/Substance Use Hx Alcohol Use: No - Smoking History Smoking history: Never smoked Have you smoked in the past 12 months: No Home Medications - Allergies Allergies/Adverse Reactions: Allergies Allergy/AdvReac Type Severity Reaction Status Date / Time No Known Allergies Allergy Verified 02/22/19 13:11 - Home Medications Home Medications: Ambulatory Orders Amlodipine Besylate [Norvasc -] 10 mg PO DAILY tablet 02/27/19 Atorvastatin Ca [Lipitor] 20 mg PO HS tablet 02/27/19 Dexamethasone [Decadron -] 2 mg PO AM tablet 02/27/19 Fludrocortisone Acetate [Florinef -] 0.1 mg PO HS tablet 02/27/19 Levothyroxine [Synthroid -] 25 mcg PO DAILY@0700 tablet 02/27/19 Naph,Mb-Db/K pH,Mbdb [PHOS-NaK PACKET -] 1 packet PO BID pow 02/27/19 hydrALAZINE HCL [Apresoline -] 50 mg PO BID tablet 02/27/19 Aspirin [ASA -] 81 mg PO DAILY 03/26/19 Calcium Carbonate/Vitamin D3 [Calcium 600 + Vit D 200 Tablet] 1 each PO DAILY Cholecalciferol (Vitamin D3) [Vitamin D3 -] 1,000 unit PO DAILY 03/26/19 Furosemide [Lasix -] 40 mg PO DAILY 03/26/19 Losartan Potassium 50 mg PO DAILY 03/26/19 Pitavastatin Calcium [Livalo] 4 mg PO DAILY 03/26/19 Family Disease History - Family Disease History Family History: Denies Review of Systems - Review of Systems Constitutional: denies: No Symptoms, Chills, Diaphoresis, Fever, Lethargy, Loss of Appetite, Malaise, Night Sweats, Unintentional Wgt. Loss, Weakness, Other Eyes: denies: No Symptoms, Blind Spots, Blurred Vision, Double Vision, Eye Pain , Floaters, Photophobia, Recent Change in Vision, Other HENT: denies: No Symptoms, Difficult Swallowing, Ear Discharge, Ear Pain, Epistaxis, Gingival Bleeding, Hearing Loss, Mouth Swelling, Nasal Congestion, Ocular Prosthesis, Throat Pain, Toothache, Ringing in Ears, Other Neck: denies: No Symptoms, Decreased ROM, Lumps, Pain on Movement, Stiffness, Swollen Glands, Tenderness, Other Cardiovascular: reports: Edema. denies: No Symptoms, Chest Pain, Palpitations, Shortness of Breath, Other Respiratory: denies: No Symptoms, Cough, Exercise Intolerance, Hemoptysis, Orthopnea, PND, Snoring, SOB, SOB on Exertion, Wheezing, Other Gastrointestinal: reports: Abdominal Pain. denies: No Symptoms, Bloating, Constipation, Diarrhea, Dysphagia, Indigestion, Melena, Nausea, Rectal Bleeding , Vomiting, Vomiting Blood, Other Genitourinary: denies: No Symptoms, Burning, Discharge, Dysuria, Flank Pain, Frequency, Hematuria, Incontinence, Lesions, Menses, Pain, Testicular Mass, Testicular Pain, Testicular Swelling, Urgency, Vaginal Bleeding, Other Breasts: denies: No Symptoms Reported, See HPI, Breast Implants, Discharge from Nipple, Lumps, Pain, Skin Changes, Other Musculoskeletal: denies: No Symptoms, Back Pain, Crepitus, Decreased ROM, Extremity Pain, Joint Pain, Joint Swelling, Muscle Pain, Muscle Cramps, Muscle Weakness, Other Integumentary: denies: No Symptoms, Blister, Bruising, Change in Color, Eczema, Erythema, Incision, Lesions, Lump, Pallor, Pruritis, Rash, Wound, Other Neurological: denies: No Symptoms, Change in LOC, Change in Speech, Confusion, Dizziness, Headache, Incoordination, Numbness, Parasthesia, Pre-Existing Deficit , Seizure, Syncope, Tremors, Unsteady Gait, Weakness, Other Endocrine: denies: No Symptoms, Excessive Sweating, Flushing, Increased Hunger, Increased Thirst, Intolerance to Cold, Intolerance to Heat, Unexplained Weight Gain, Unexplained Weight Loss, Other Hematology/Lymphatic: denies: No Symptoms, Easily Bruised, Excessive Bleeding, Swollen Glands, Other Psychiatric: denies: No Symptoms, Altered Sleep Pattern, Anxiety, Depression, Hallucinations, Panic, Paranoia, Suicidal, Other - Risk Factors Known Risk Factors: Yes: Age, Hypertension Vital Signs: Vital Signs Temperature 98.1 F 03/26/19 11:47 Pulse Rate 73 03/26/19 11:47 Respiratory Rate 18 03/26/19 14:48 Blood Pressure 118/37 L 03/26/19 14:30 O2 Sat by Pulse Oximetry (%) 100 03/26/19 14:48 Constitutional: Yes: No Distress, Calm Eyes: Yes: Conjunctiva Clear, EOM Intact, PERRL HENT: Yes: Atraumatic, Normocephalic Neck: Yes: Supple, Trachea Midline Respiratory: Yes: Regular, CTA Bilaterally. No: Rales, Rhonchi, SOB, Wheezes Gastrointestinal: Yes: Normal Bowel Sounds, Tenderness. No: Distention Cardiovascular: Yes: Regular Rate and Rhythm. No: Bradycardia, Tachycardia, Pulse Irregular, Gallop, Rub, Varicosities JVD: No Carotid Bruit: No PMI: Non-Displaced Heart Sounds: Yes: S1, S2. No: Split S2, S3, S4, Clicks, Gallop, Rub, Bruit Murmur: No: Systolic Murmur, Diastolic Murmur Extremities: Yes: WNL Edema: Yes Edema: LLE: 2+, RLE: 2+ Peripheral Pulses WNL: Yes Neurological: Yes: Alert, Oriented Psychiatric: Yes: Alert, Oriented - Other Data Labs, Other Data: CBC, BMP 03/26/19 12:11 03/26/19 12:11 Troponin, BNP 03/26/19 12:11 Troponin I 0.03 B-Natriuretic Peptide 1072.2 H Troponin, BNP 03/26/19 12:11 Troponin I 0.03 B-Natriuretic Peptide 1072.2 H ekg nsr 69bpm, no sig ST abnl Echo: Report Reviewed Imaging - Results Chest X-ray: Report Reviewed, Image Reviewed EKG: Report Reviewed, Image Reviewed Other: Report Reviewed, Image Reviewed Assessment/Plan 78 year old woman with pmh hypothyroid, recent admission with URI and fatigue with sinus bradycardia which improved after stopping AV johnathan blockers, now admitted with worsening b/l LE edema which did not improve with lasix as outpatient. Of note pt was started on amlodipine after last admission to replace her bblocker that was stopped. denies any chest pain or sob. also notes LUQ pain that is tender to palpation. LE edema-multiple possible etiologies, amlodipine, chronic venous insufficiency , severe TR -no signs of decompensated CHF, lungs are clear -recent Echo 02/23/19 Normal LV systolic function. Normal RV Severe TR with normal PASP Moderate MR. -recently started on amlodipine which could be contributing -no DVT on LE doppler US today -stop amlodipine -leg elevation -compression stockings -on IV Lasix currently -would monitor closely and re-evaluate tomorrow -likely does not need aggressive diuresis and may precipitate intravascular depletion -can use KANDIS-I/ARB if needed for HTN control -Avoid any AV johnathan blocking agents. -plan to repeat echo as outpatient to re-evaluate TR -does not require telemetry, can monitor overnight and if no arrhythmias dc tele tomorrow. -no other inpatient cardiac testing is needed at this time.
[2019-03-26] MEDS: ATORVASTATIN CA 20 MG TABLET (FP) PO SCH (21:52)
[2019-03-26] MEDS: HEPARIN NA (PORCINE) 5,000 UNITS/ML 1ML VIAL SQ SCH (21:52)
[2019-03-26] MEDS: FLUDROCORTISONE ACETATE 0.1 MG TABLET (FP) PO SCH (23:21)
[2019-03-27] MEDS: FUROSEMIDE 40 MG/4 ML INJECTABLE VIAL IVPUSH SCH ×2 (06:24→13:06)
[2019-03-27] MEDS: LEVOTHYROXINE NA 25 MCG TABLET (FP) PO SCH (06:24)
[2019-03-27 08:06] LABS: HEMATOCRIT 34.9 % (32.4-45.2); HEMOGLOBIN 11.2 GM/dL (10.7-15.3); MCH 30.5 pg (25.7-33.7); MCHC 32.2 g/dl (32.0-36.0); MEAN CELL VOLUME 94.5 fl (80-96); MEAN PLT VOLUME 8.7 fl (7.5-11.1); PLATELET COUNT 137 K/MM3 (134-434); RBC 3.69 M/mm3 (3.60-5.2); RDW 15.9 % (11.6-15.6); WHITE BLOOD COUNT 6.1 K/mm3 (4.0-10.0)
[2019-03-27 08:22] LABS: INR 0.97 (0.83-1.09); PROTHROMBIN TIME (PATIENT) 11.5 SEC (9.7-13.0)
[2019-03-27 08:24] LABS: ACTIVATED PTT 31.1 SECONDS (25.2-36.5)
[2019-03-27 09:03] LABS: ALK PHOS 63 U/L (45-117); ANION GAP 6 MMOL/L (8-16); BILIRUBIN,TOTAL 0.8 mg/dL (0.2-1); BLOOD UREA NITROGEN 27 mg/dL (7-18); CALCIUM 7.9 mg/dL (8.5-10.1); CHLORIDE 98 mmol/L (98-107); CO2 34 mmol/L (21-32); CREATININE 0.8 mg/dL (0.55-1.3); GLUCOSE,RANDOM 77 mg/dL (74-106); MAGNESIUM 2.8 mg/dL (1.8-2.4); POTASSIUM 3.3 mmol/L (3.5-5.1); SGOT/AST 32 U/L (15-37); SGPT/ALT 97 U/L (13-61); SODIUM 138 mmol/L (136-145); TOT PROT 5.8 g/dl (6.4-8.2)
[2019-03-27] MEDS ORDERED: POTASSIUM CHLORIDE TABS 20 MEQ TABLET.ER (FP) PO ONE (09:25)
--- NOTE | 2019-03-27 09:27 | PN ---
Progress Note, Physician - Current Medication List Current Medications: Active Medications Atorvastatin Calcium (Lipitor -) 20 mg PO [facility] Last Admin: 03/26/19 21:52 Dose: 20 mg Fludrocortisone Acetate (Florinef -) 0.1 mg PO [facility] Last Admin: 03/26/19 23:21 Dose: 0.1 mg Furosemide (Lasix Injection -) 40 mg IVPUSH BID@0600,1400 [facility] Last Admin: 03/27/19 06:24 Dose: 40 mg Heparin Sodium (Porcine) (Heparin -) 5,000 unit SQ BID [facility] Last Admin: 03/26/19 21:52 Dose: 5,000 unit Levothyroxine Sodium (Synthroid -) 25 mcg PO DAILY@0700 [facility] Last Admin: 03/27/19 06:24 Dose: 25 mcg Polyethylene Glycol (Miralax (For Daily Use) -) 17 gm PO DAILY [facility] - Objective Vital Signs: Vital Signs Temperature 98 F 03/27/19 06:00 Pulse Rate 64 03/27/19 06:00 Respiratory Rate 18 03/27/19 06:00 Blood Pressure 113/61 03/27/19 06:00 O2 Sat by Pulse Oximetry (%) 96 03/26/19 20:39 Cardiovascular: Yes: Regular Rate and Rhythm Respiratory: Yes: Regular, CTA Bilaterally Gastrointestinal: Yes: Normal Bowel Sounds, Soft Edema: Yes Edema: LLE: 2+, RLE: 2+ Labs: CBC, BMP 03/27/19 06:50 03/27/19 06:50 INR, PTT INR 0.97 (0.83-1.09) 03/27/19 06:50 Assessment/Plan - Problems (1) Peripheral edema Assessment/Plan: doppler of legs no dvt off norvasc lasix iv bid caridology noted daily weights Code(s): R60.9 - EDEMA, UNSPECIFIED (2) Hypoadrenocorticism Assessment/Plan: florinef HS Code(s): E27.40 - UNSPECIFIED ADRENOCORTICAL INSUFFICIENCY (3) Hypothyroidism Assessment/Plan: synthroid 25 mcg daily tsh Code(s): E03.9 - HYPOTHYROIDISM, UNSPECIFIED Qualifiers: Hypothyroidism type: unspecified Qualified Code(s): E03.9 - Hypothyroidism , unspecified (4) Hypertension Assessment/Plan: given leg edema stop amlodipine if needed binh use losaratan Code(s): I10 - ESSENTIAL (PRIMARY) HYPERTENSION Qualifiers: Hypertension type: unspecified Qualified Code(s): I10 - Essential (primary ) hypertension
--- NOTE | 2019-03-27 09:39 | PN ---
Progress Note, Physician Chief Complaint: no complaints. edema improving. tele nsr with pvcs History of Present Illness: 78 year old woman with pmh hypothyroid, recent admission with URI and fatigue with sinus bradycardia which improved after stopping AV johnathan blockers, now admitted with worsening b/l LE edema which did not improve with lasix as outpatient. Of note pt was started on amlodipine after last admission to replace her bblocker that was stopped. denies any chest pain or sob. - Current Medication List Current Medications: Active Medications Atorvastatin Calcium (Lipitor -) 20 mg PO HS [facility] Last Admin: 03/26/19 21:52 Dose: 20 mg Fludrocortisone Acetate (Florinef -) 0.1 mg PO HS [facility] Last Admin: 03/26/19 23:21 Dose: 0.1 mg Furosemide (Lasix Injection -) 40 mg IVPUSH BID@0600,1400 [facility] Last Admin: 03/27/19 06:24 Dose: 40 mg Heparin Sodium (Porcine) (Heparin -) 5,000 unit SQ BID [facility] Last Admin: 03/26/19 21:52 Dose: 5,000 unit Levothyroxine Sodium (Synthroid -) 25 mcg PO DAILY@0700 [facility] Last Admin: 03/27/19 06:24 Dose: 25 mcg Polyethylene Glycol (Miralax (For Daily Use) -) 17 gm PO DAILY [facility] Potassium Chloride (K-Dur -) 20 meq PO DAILY [facility] - Objective Vital Signs: Vital Signs Temperature 98 F 03/27/19 06:00 Pulse Rate 64 03/27/19 06:00 Respiratory Rate 18 03/27/19 06:00 Blood Pressure 113/61 03/27/19 06:00 O2 Sat by Pulse Oximetry (%) 96 03/26/19 20:39 Constitutional: Yes: No Distress, Calm Eyes: Yes: Conjunctiva Clear, EOM Intact HENT: Yes: Atraumatic, Normocephalic Neck: Yes: Trachea Midline Cardiovascular: Yes: Regular Rate and Rhythm Respiratory: Yes: CTA Bilaterally Gastrointestinal: Yes: Normal Bowel Sounds, Soft Genitourinary: Yes: WNL Musculoskeletal: Yes: WNL Extremities: Yes: WNL Edema: LLE: Trace, RLE: Trace Peripheral Pulses WNL: Yes Labs: CBC, BMP 03/27/19 06:50 03/27/19 06:50 INR, PTT INR 0.97 (0.83-1.09) 03/27/19 06:50 Assessment/Plan 78 year old woman with pmh hypothyroid, recent admission with URI and fatigue with sinus bradycardia which improved after stopping AV johnathan blockers, now admitted with worsening b/l LE edema which did not improve with lasix as outpatient. Of note pt was started on amlodipine after last admission to replace her bblocker that was stopped. denies any chest pain or sob. LE edema-multiple possible etiologies, amlodipine, chronic venous insufficiency , severe TR -no signs of decompensated CHF, lungs are clear -recent Echo 02/23/19 Normal LV systolic function. Normal RV Severe TR with normal PASP Moderate MR. -recently started on amlodipine which could be contributing -no DVT on LE doppler US today -stop amlodipine -leg elevation -compression stockings -on IV Lasix currently -would monitor closely and re-evaluate tomorrow -likely does not need aggressive diuresis and may precipitate intravascular depletion -can use KANDIS-I/ARB if needed for HTN control -Avoid any AV johnathan blocking agents. -plan to repeat echo as outpatient to re-evaluate TR -does not require telemetry -no other inpatient cardiac testing is needed at this time.
[2019-03-27] MEDS: HEPARIN NA (PORCINE) 5,000 UNITS/ML 1ML VIAL SQ SCH ×2 (09:54→21:13)
[2019-03-27] MEDS ORDERED: POLYETHYLENE GLYCOL 3350 119 GM BTL PO SCH (10:00)
[2019-03-27] MEDS ORDERED: LOSARTAN POTASSIUM 50 MG TABLET (FP) PO SCH (10:00)
[2019-03-27] MEDS: POTASSIUM CHLORIDE TABS 20 MEQ TABLET.ER (FP) PO SCH (11:30)
--- NOTE | 2019-03-27 12:35 | PN ---
Progress Note (short form) - Note Progress Note: GI -- full consult dictated In short -- - abd sonogram ordered - pepcid 20 mg IV bid - bowel regimen - miralax bid - further work up / evaluation of the left sided chest nodule as per primary medical team
[2019-03-27] MEDS ORDERED: PT OWN MED DRAWER 7, Y5N ONE (20:52)
[2019-03-27] MEDS: ATORVASTATIN CA 20 MG TABLET (FP) PO SCH (21:12)
[2019-03-27] MEDS: FLUDROCORTISONE ACETATE 0.1 MG TABLET (FP) PO SCH (21:13)
[2019-03-28] MEDS: LEVOTHYROXINE NA 25 MCG TABLET (FP) PO SCH (06:56)
[2019-03-28] MEDS: FUROSEMIDE 40 MG/4 ML INJECTABLE VIAL IVPUSH SCH (06:56)
[2019-03-28 07:08] LABS: ALBUMIN 2.6 g/dl (3.4-5.0); ALK PHOS 57 U/L (45-117); ANION GAP 3 MMOL/L (8-16); BILIRUBIN,TOTAL 0.8 mg/dL (0.2-1); BLOOD UREA NITROGEN 27 mg/dL (7-18); CALCIUM 7.6 mg/dL (8.5-10.1); CHLORIDE 102 mmol/L (98-107); CO2 36 mmol/L (21-32); CREATININE 0.9 mg/dL (0.55-1.3); GLUCOSE,RANDOM 76 mg/dL (74-106); MAGNESIUM 2.5 mg/dL (1.8-2.4); POTASSIUM 3.7 mmol/L (3.5-5.1); SGOT/AST 29 U/L (15-37); SGPT/ALT 88 U/L (13-61); SODIUM 142 mmol/L (136-145); TOT PROT 4.8 g/dl (6.4-8.2)
--- NOTE | 2019-03-28 08:39 | DS ---
Physical Examination Vital Signs: Vital Signs Temperature 98.4 F 03/28/19 05:00 Pulse Rate 61 03/28/19 05:00 Respiratory Rate 20 03/28/19 05:00 Blood Pressure 132/58 L 03/28/19 05:00 O2 Sat by Pulse Oximetry (%) 96 03/27/19 21:00 Cardiovascular: Yes: Regular Rate and Rhythm Respiratory: Yes: Regular, CTA Bilaterally Gastrointestinal: Yes: Normal Bowel Sounds, Soft Labs: CBC, BMP 03/27/19 06:50 03/28/19 05:30 Discharge Summary Reason For Visit: PERIPHERAL EDEMA Current Active Problems Peripheral edema (Acute) Hospital Course: 78 yo F history HTN, HL presents with significant BLE swelling. She was sent by Dr. Awad after outpatient treatment with lasix failed. She denies SOB, cp. She has had recent LUQ pain, no vomiting, no nausea, no diarrhea. No recent fevers. She states she has had swollen legs for quite awhile, but it is significantly worse. - Problems (1) Peripheral edema Assessment/Plan: doppler of legs no dvt off norvasc lasix iv bid--to po caridology noted daily weights Code(s): R60.9 - EDEMA, UNSPECIFIED (2) Hypoadrenocorticism Assessment/Plan: florinef HS Code(s): E27.40 - UNSPECIFIED ADRENOCORTICAL INSUFFICIENCY (3) Hypothyroidism Assessment/Plan: synthroid 25 mcg daily tsh Code(s): E03.9 - HYPOTHYROIDISM, UNSPECIFIED Qualifiers: Hypothyroidism type: unspecified Qualified Code(s): E03.9 - Hypothyroidism , unspecified (4) Hypertension Assessment/Plan: given leg edema stop amlodipine if needed binh use losaratan Code(s): I10 - ESSENTIAL (PRIMARY) HYPERTENSION Qualifiers: Hypertension type: unspecified Qualified Code(s): I10 - Essential (primary ) hypertension (5) Abnormal Lft Assessment/Plan: us if neg further monitoring as outpatient maybe be congestion Condition: Stable - Instructions - Home Medications Comprehensive Discharge Medication List: Ambulatory Orders Amlodipine Besylate [Norvasc -] 10 mg PO DAILY tablet 02/27/19 Atorvastatin Ca [Lipitor] 20 mg PO HS tablet 02/27/19 Dexamethasone [Decadron -] 2 mg PO AM tablet 02/27/19 Fludrocortisone Acetate [Florinef -] 0.1 mg PO HS tablet 02/27/19 Levothyroxine [Synthroid -] 25 mcg PO DAILY@0700 tablet 02/27/19 Naph,Mb-Db/K pH,Mbdb [PHOS-NaK PACKET -] 1 packet PO BID pow 02/27/19 hydrALAZINE HCL [Apresoline -] 50 mg PO BID tablet 02/27/19 Aspirin [ASA -] 81 mg PO DAILY 03/26/19 Calcium Carbonate/Vitamin D3 [Calcium 600 + Vit D 200 Tablet] 1 each PO DAILY Cholecalciferol (Vitamin D3) [Vitamin D3 -] 1,000 unit PO DAILY 03/26/19 Furosemide [Lasix -] 40 mg PO DAILY 03/26/19 Losartan Potassium 50 mg PO DAILY 03/26/19 Pitavastatin Calcium [Livalo] 4 mg PO DAILY 03/26/19
--- NOTE | 2019-03-28 09:30 | CONS ---
GASTROENTEROLOGY CONSULTATION DATE OF CONSULTATION: DATE OF DICTATION: 03/27/2019 The patient is an 78-year-old female, past medical history of hypertension, hyperlipidemia, who presented to the hospital with lower extremity swelling. Apparently, she was treated by her PMD with Lasix. However, treatment failed, and he sent her to the hospital for further management. She also complains of left-sided, upper quadrant abdominal pain projecting into the chest as well as occasional constipation. She states her last colonoscopy was about 5 years ago. She reports it to be normal. She has never had an upper endoscopy. She also complains of bloating and reflux symptoms. She denies blood in the stool, fevers, chills, or weight loss. PAST MEDICAL AND SURGICAL HISTORY: As listed in the HPI. ALLERGIES: No known drug allergies. SOCIAL HISTORY: Does not smoke, drink, or use drugs. FAMILY HISTORY: No history of GI or gynecological malignancy. HOME MEDICATIONS: Reviewed, include Norvasc, Lipitor, Decadron, Florinef, Synthroid, packets, , aspirin, vitamin D, Lasix, losartan, and Livalo. PHYSICAL EXAMINATION: Vital Signs: Temperature 98, pulse 64, respiratory rate 12, blood pressure 113/61, pulse oximetry 96% on room air. General: No acute distress. Pleasant female. HEENT: Anicteric sclerae. Cardiovascular: S1, S2. Regular rate and rhythm. Lungs: Bilaterally clear to auscultation. Abdomen: Soft and nontender. In the left upper quadrant at the border of the 12th rib, there appears to be a small lump that is mobile and tender upon palpation. Remainder of her abdominal exam is within normal limits. Extremities: Significant for edema. LABORATORY DATA: White blood cell count 6.1, hemoglobin 11 and hematocrit 34, MCV 94, platelet count 137. INR is 0.97. Sodium 138, potassium 3.3, BUN 27, creatinine 0.8. Magnesium 2.8. AST 32; ALT 97, down from 100; alkaline phosphatase 123, currently 63. BNP 1000. Troponins negative. She had an abdominal x-ray which revealed stool in the transverse colon without evidence of impaction, just some dilation of the small-bowel loops in the left lower abdomen, questionable ileus. IMPRESSION: 1. Dyspepsia with associated bloating and reflux, may be secondary to gastropathy versus peptic ulcer disease versus functional etiology, worsened by her chronic constipation as revealed on imaging studies. I doubt she has an actual ileus. It more appears she has a slow-transit constipation that is chronic. 2. Small, mobile nodule on the left border of the ribcage, unclear etiology. RECOMMENDATION: 1. Abdominal ultrasound to further evaluate the liver and biliary tree as well as the transaminitis. 2. She would benefit from a diagnostic upper endoscopy once she is stable from a cardiopulmonary perspective and optimized. 3. She can be started on Pepcid 20 mg IV b.i.d. for relief of her symptoms. 4. Further workup and evaluation of the nodule on the border of her ribcage as per the primary medical team as it appears she is having pain at that exact site. This patient will be followed by the GI service. DO FATOUMATA JAMISON/[id number]
[2019-03-28] MEDS ORDERED: PT OWN MED DRAWER 7, Y5N ONE (09:39)
[2019-03-28] MEDS ORDERED: FUROSEMIDE 40 MG TABLET (FP) PO SCH (10:00)
[2019-03-28] MEDS ORDERED: POLYETHYLENE GLYCOL 3350 119 GM BTL PO SCH (10:00)
[2019-03-28] MEDS ORDERED: RANITIDINE HCL 150 MG TABLET (FP) PO SCH (10:00)
[2019-03-28] MEDS: POTASSIUM CHLORIDE TABS 20 MEQ TABLET.ER (FP) PO SCH (12:01)
[2019-03-28] MEDS: HEPARIN NA (PORCINE) 5,000 UNITS/ML 1ML VIAL SQ SCH (12:01)
--- NOTE | 2019-03-28 18:46 | PN.GI ---
GI Progress Note Subjective: Pt seen/examined at bedside, feeling well, denies abdominal pain, n/v. Moving bowels. States she is being discharged. - Objective Vital Signs: Vital Signs Temperature 97.9 F 03/28/19 13:00 Pulse Rate 77 03/28/19 13:00 Respiratory Rate 18 03/28/19 13:00 Blood Pressure 128/54 L 03/28/19 13:00 O2 Sat by Pulse Oximetry (%) 96 03/28/19 09:00 Constitutional: Well Nourished, No Distress, Calm Cardiovascular: Yes: WNL, Regular Rate and Rhythm Respiratory: Yes: WNL, Regular, CTA Bilaterally Gastrointestinal Inspection: Yes: WNL ...Palpate: Yes: Other (Abd soft, nt, nd) Labs: CBC, BMP 03/27/19 06:50 03/28/19 05:30 INR, PTT INR 0.97 (0.83-1.09) 03/27/19 06:50 Problem List - Problems (1) Abdominal pain Assessment/Plan: appears to have resolved ?component of constipation. Moving bowels. Tolerating diet. -Continue miralax daily/bid -Zantac bid -Outpatient GI follow up Code(s): R10.9 - UNSPECIFIED ABDOMINAL PAIN (2) Elevated LFTs Assessment/Plan: ALT elevation noted, now downtrending. US revealing hetergeneous appearing liver , no biliary dilation. -Monitor LFT trend to ensure normalization -Avoid nonessential hepatotoxic medications -If patient being dc'd today recommend follow up within 5-7 days with PMD -Outpatient GI follow up Code(s): R94.5 - ABNORMAL RESULTS OF LIVER FUNCTION STUDIES
[2019-03-28 19:08] VITALS: BP 139/63; PULSE 78; TEMP 98.8
== END 2019-03-28 20:08 | disposition home or self-care (01) | DRG 948 ==
LOC: JER 11:28 → JERBED 13:58 → J4W 16:21
PROVIDERS: ADMIT Student in an Organized Health Care Education/Training Program; ATTEND Student in an Organized Health Care Education/Training Program
DX: R60.0 Localized edema (principal); E27.40 Unspecified adrenocortical insufficiency; I10 Essential (primary) hypertension; E78.5 Hyperlipidemia, unspecified; E03.9 Hypothyroidism, unspecified; I08.1 Rheumatic disorders of both mitral and tricuspid valves; R94.5 Abnormal results of liver function studies; R10.9 Unspecified abdominal pain; T46.1X5A Adverse effect of calcium-channel blockers, initial encounter; I73.9 Peripheral vascular disease, unspecified
CPT/HCPCS: 36415; 71045-TC-FY; 74018-TC-FY; 74019-TC-FY; 76705-TC; 80053; 83735; 83880; 84100; 84443; 84484; 85025; 85027; 85610; 85730; 93005; 93010; 93970-TC; 97116-GP; 97161-GP; 99283-25; J1644

== ENCOUNTER 2019-06-29 13:43 | Inpatient (IN) | payer OTHER ==
--- NOTE | 2019-06-29 13:47 | PDOC ---
Rapid Medical Evaluation Time Seen by Provider: 06/29/19 13:46 Medical Evaluation: Allergies Allergy/AdvReac Type Severity Reaction Status Date / Time No Known Allergies Allergy Verified 02/22/19 13:11 06/29/19 13:46 I have performed a brief exam on this patient. CC: weakness. Hypokalemia PE: No focal findings. Orders: EKG, Labs The patient will proceed to the ER for further evaluation. Discharge Disposition - Diagnosis Weakness - Referrals - Patient Instructions - Post Discharge Activity
[2019-06-29 15:56] LABS: PH,URINE 5.5 (5.0-8.0); URINE APPEARANCE CLEAR; URINE BILIRUBIN NEGATIVE (NEGATIVE); URINE COLOR YELLOW; URINE GLUCOSE (UA) NEGATIVE (NEGATIVE); URINE KETONE TRACE (NEGATIVE); URINE LEUK ESTERASE NEGATIVE (NEGATIVE); URINE NITRITE NEGATIVE (NEGATIVE); URINE PROTEIN NEGATIVE (NEGATIVE)
[2019-06-29 16:00] LABS: BASO % 1.3 % (0-2.0); EOS % 1.4 % (0-4.5); HEMATOCRIT 30.5 % (32.4-45.2); HEMOGLOBIN 10.3 GM/dL (10.7-15.3); LYMPH % 38.8 % (8-40); MCH 31.4 pg (25.7-33.7); MCHC 33.7 g/dl (32.0-36.0); MEAN CELL VOLUME 93.3 fl (80-96); MEAN PLT VOLUME 8.9 fl (7.5-11.1); MONO % 12.5 % (3.8-10.2); PLATELET COUNT 197 K/MM3 (134-434); RBC 3.27 M/mm3 (3.60-5.2); RDW 14.3 % (11.6-15.6); WHITE BLOOD COUNT 5.8 K/mm3 (4.0-10.0)
[2019-06-29 16:11] LABS: INR 1.01 (0.83-1.09); PROTHROMBIN TIME (PATIENT) 11.9 SEC (9.7-13.0)
[2019-06-29 16:26] LABS: ALBUMIN 3.1 g/dl (3.4-5.0); ALK PHOS 52 U/L (45-117); ANION GAP 5 MMOL/L (8-16); BILIRUBIN,TOTAL 0.5 mg/dL (0.2-1); BLOOD UREA NITROGEN 22.5 mg/dL (7-18); CALCIUM 8.2 mg/dL (8.5-10.1); CHLORIDE 90 mmol/L (98-107); CO2 > 45 mmol/L (21-32); CREATININE 1.2 mg/dL (0.55-1.3); GLUCOSE,RANDOM 88 mg/dL (74-106); MAGNESIUM 1.9 mg/dL (1.8-2.4); SGOT/AST 27 U/L (15-37); SGPT/ALT 17 U/L (13-61); SODIUM 140 mmol/L (136-145); TOT PROT 5.6 g/dl (6.4-8.2)
[2019-06-29 16:29] LABS: POTASSIUM 2.2 mmol/L (3.5-5.1)
[2019-06-29] MEDS: POTASSIUM CHLORIDE TABS 20 MEQ TABLET.ER (FP) PO ONE ×2 (17:28→17:45)
[2019-06-29] MEDS: KCL 10 MEQ IVPB 10 MEQ/100 ML INFUS.BAG IVPB SCH ×2 (17:28→18:34)
[2019-06-29] MEDS ORDERED: POTASSIUM CHLORIDE TABS 20 MEQ TABLET.ER (FP) PO ONE ×2 (17:29→18:14)
[2019-06-29] MEDS ORDERED: KCL 10 MEQ IVPB 10 MEQ/100 ML INFUS.BAG IVPB ONE ×2 (17:29→19:22)
--- NOTE | 2019-06-29 17:46 | PDOC ---
Documentation entered by Danielle Boudreaux SCRIBE, acting as scribe for Esther Frederick MD. Esther Frederick MD: This documentation has been prepared by the Kanika jordan Brenda, SCRIBE, under my direction and personally reviewed by me in its entirety. I confirm that the documentation accurately reflects all work, treatment, procedures, and medical decision making performed by me. Attending Attestation - Resident Resident Name: Joshua Guzmán - ED Attending Attestation I have performed the following: I have examined & evaluated the patient, The case was reviewed & discussed with the resident, I agree w/resident's findings & plan, Exceptions are as noted - HPI HPI: 06/29/19 17:41 78 yo F with h/o hypothyroid, HTN, anemia, saw dr guajardo yesterday had routine labs, received phone call today her potassium is 2.8. has been taking potassium does have fatigue of legs some times. no f/c no cp no sob. no palpitations. no other complaints. does have recent bilateral leg edema. - Physicial Exam PE: 06/29/19 17:44 awake alert lungs clear bilat heart rrr no mrg abd soft nt nd ext wwp. bilat nonpitting edema. nuero alert oriented x 3. 5/5 all four ext. - Medical Decision Making 06/29/19 17:44 78 yo F h/o Hypothyroid, htn here with hypokalemia. on lasix. already taking 20 meq daily. will admit for potassium supplementiation, failed outpt replenish. may need to switch to potassium sparing. pt sees dr griffin, and dr guajardo. will admit hopsitalist. 06/29/19 18:[address] guajardo, recommend random cortisol acth level. believes she may be hypokalemic from adrenal issues, has been on fludricortisone. magnesium 1.9. potassium 2.2 will admit tele. Heart Score/ECG Review #1 ECG reviewed & interpreted by me at: 18:09 General ECG Interpretation: Sinus Rhythm, Normal Rate (63), Normal Intervals, No acute ischemic changes Compared to previous ECG there are: No significant change
--- NOTE | 2019-06-29 17:55 | HP ---
Admitting History and Physical - Primary Care Physician PCP: Jacque Awad - Admission Chief Complaint: low potassium levels/weakness History of Present Illness: Patient is a 78 year old female with a significant past medical history of hypertension, anemia, hypothyroidism. She was sent to the ED after routine labs she had done yesterday showed her potassium to be 2.8. On admission, her K was 2.2 with a normal magnesium. Patient reports lower extremity weakness but no other complaints. She is on a Lasix 40mg and Metolazone 2.5mg with Potassium 40meq supplements which she takes daily. She denies any chest pain, denies any palpitations. No abdominal pain, no nausea, no vomiting nor frequent bowel movements. No other complaints. She is noted to have +2 lower ext edema non pitting. History Source: Patient Limitations to Obtaining History: No Limitations - Past Medical History Cardiovascular: Yes: HTN Gastrointestinal: Yes: Other (no abdominal pain/nausea or vomiting.) ...: No - Smoking History Smoking history: Never smoked Have you smoked in the past 12 months: No - Alcohol/Substance Use Hx Alcohol Use: No Home Medications - Allergies Allergies/Adverse Reactions: Allergies Allergy/AdvReac Type Severity Reaction Status Date / Time No Known Allergies Allergy Verified 02/22/19 13:11 - Home Medications Home Medications: Ambulatory Orders Fludrocortisone Acetate [Florinef -] 0.1 mg PO HS tablet 02/27/19 Levothyroxine [Synthroid -] 25 mcg PO DAILY@0700 tablet 02/27/19 Naph,Mb-Db/K pH,Mbdb [PHOS-NaK PACKET -] 1 packet PO BID pow 02/27/19 Aspirin [ASA -] 81 mg PO DAILY 03/26/19 Calcium Carbonate/Vitamin D3 [Calcium 600-Vit D3 200 Tablet] 1 each PO DAILY 05/09 Cholecalciferol (Vitamin D3) [Vitamin D3 -] 1,000 unit PO DAILY 03/26/19 Furosemide [Lasix -] 40 mg PO DAILY 03/26/19 Losartan Potassium 50 mg PO DAILY 03/26/19 Pitavastatin Calcium [Livalo] 4 mg PO DAILY 03/26/19 Polyethylene Glycol 3350 [Miralax 119 gm Btl -] 17 gm PO BID bottle 03/28/19 Potassium Chloride [K-Dur -] 20 meq PO DAILY #30 tablet.er 03/28/19 Ranitidine [Zantac -] 150 mg PO BID #60 tablet 03/28/19 Family Disease History - Family Disease History Family History: Denies (non contributory) Review of Systems - Review of Systems Constitutional: reports: No Symptoms Eyes: reports: No Symptoms HENT: reports: No Symptoms Neck: reports: No Symptoms Cardiovascular: reports: Edema Respiratory: reports: No Symptoms Gastrointestinal: reports: No Symptoms Genitourinary: reports: No Symptoms Breasts: reports: No Symptoms Reported Musculoskeletal: reports: Joint Swelling Integumentary: reports: No Symptoms Neurological: reports: Weakness Hematology/Lymphatic: reports: No Symptoms Psychiatric: reports: No Symptoms Physical Examination Vital Signs: Vital Signs Temperature 98.7 F 06/29/19 13:46 Pulse Rate 58 L 06/29/19 15:30 Respiratory Rate 20 06/29/19 15:30 Blood Pressure 115/60 06/29/19 15:30 O2 Sat by Pulse Oximetry (%) 96 06/29/19 15:30 Constitutional: Yes: Well Nourished, No Distress, Calm Eyes: Yes: WNL HENT: Yes: WNL, Atraumatic Neck: Yes: WNL, Supple Cardiovascular: Yes: Regular Rate and Rhythm Respiratory: Yes: WNL, Regular, CTA Bilaterally Gastrointestinal: Yes: Normal Bowel Sounds ...Rectal Exam: Yes: Deferred Renal/: Yes: WNL Musculoskeletal: Yes: Muscle Weakness Edema: LLE: 2+, RLE: 2+ Integumentary: Yes: WNL Wound/Incision: Yes: Clean/Dry Neurological: Yes: WNL, Alert, Oriented Psychiatric: Yes: Alert, Oriented Labs: CBC, BMP 06/29/19 15:35 06/29/19 15:35 Imaging - Results Chest X-ray: Image Reviewed Problem List - Problems (1) Hypokalemia Assessment/Plan: presents with K of 2.2 on admission given 40 meq of K PO in the Ed and 20meq IV hold lasix and metolzone repeat labs now monitor cmp q 4 until normalizes monitor on tele for arrhythmias Code(s): E87.6 - HYPOKALEMIA (2) Hypertension Assessment/Plan: on losartan 50, amlodopine 10 monitor bp Code(s): I10 - ESSENTIAL (PRIMARY) HYPERTENSION (3) Weakness Assessment/Plan: secondary to electrolyte imbalance order PT Code(s): R53.1 - WEAKNESS (4) Peripheral edema Assessment/Plan: lower ext edema, takes 40mg of lasix at home elevated lower ext above heart level Code(s): R60.9 - EDEMA, UNSPECIFIED (5) Prophylactic measure Assessment/Plan: fen no ivf monitor electrolytes q 4 until normalizes full code los < 48 hours, defer a/c Code(s): Z29.9 - ENCOUNTER FOR PROPHYLACTIC MEASURES, UNSPECIFIED Visit type - Emergency Visit Emergency Visit: Yes ED Registration Date: 06/29/19 Care time: The patient presented to the Emergency Department on the above date and was hospitalized for further evaluation of their emergent condition. - New Patient This patient is new to me today: Yes Date on this admission: 06/29/19 - Critical Care Critical Care patient: No
[2019-06-29] MEDS ORDERED: POTASSIUM CHLORIDE 20 MEQ PREMIX IVPB 100 ML IVPB ONE (18:10)
[2019-06-29] MEDS ORDERED: POTASSIUM CHLORIDE ORAL LIQUID 20 MEQ/15 ML PO ONE (18:16)
--- NOTE | 2019-06-29 18:16 | PDOC ---
History of Present Illness - General Chief Complaint: Abnormal Lab Results (Outside) Stated Complaint: SENT BY PCP Time Seen by Provider: 06/29/19 13:46 - History of Present Illness Initial Comments: Ms. Mendoza is a 78 y/o female with PMH of hypothyroidism and hypertension sent in by her gusset stitcher for abnormal labs. Reports that she saw her gusset stitcher yesterday for routine visit and received a call today that her potassium was low. Unsure of the lab value but was told to come to the ED. On presentation, she reports mild weakness and swelling in her bilateral lower extremities. No other complaints. No chest pain, no shortness of breath, no dizziness, no headache, no nausea/vomiting, no diarrhea. Reports mild constipation. Endo: Dr. Aguila PCP: Dr. Awad Past History - Past Medical History Allergies/Adverse Reactions: Allergies Allergy/AdvReac Type Severity Reaction Status Date / Time No Known Allergies Allergy Verified 02/22/19 13:11 Home Medications: Ambulatory Orders Fludrocortisone Acetate [Florinef -] 0.1 mg PO HS tablet 02/27/19 Levothyroxine [Synthroid -] 25 mcg PO DAILY@0700 tablet 02/27/19 Naph,Mb-Db/K pH,Mbdb [PHOS-NaK PACKET -] 1 packet PO BID pow 02/27/19 Aspirin [ASA -] 81 mg PO DAILY 03/26/19 Calcium Carbonate/Vitamin D3 [Calcium 600-Vit D3 200 Tablet] 1 each PO DAILY 05/09 Cholecalciferol (Vitamin D3) [Vitamin D3 -] 1,000 unit PO DAILY 03/26/19 Furosemide [Lasix -] 40 mg PO DAILY 03/26/19 Losartan Potassium 50 mg PO DAILY 03/26/19 Pitavastatin Calcium [Livalo] 4 mg PO DAILY 03/26/19 Polyethylene Glycol 3350 [Miralax 119 gm Btl -] 17 gm PO BID bottle 03/28/19 Potassium Chloride [K-Dur -] 20 meq PO DAILY #30 tablet.er 03/28/19 Ranitidine [Zantac -] 150 mg PO BID #60 tablet 03/28/19 Anemia: Yes COPD: No HTN: Yes Hypercholesterolemia: Yes Thyroid Disease: Yes (hypo) - Surgical History Appendectomy: Yes - Suicide/Smoking/Psychosocial Hx Smoking History: Never smoked Have you smoked in the past 12 months: No Hx Alcohol Use: No Drug/Substance Use Hx: No Substance Use Type: None Hx Substance Use Treatment: No Review of Systems - Review of Systems Comments:: ROS GENERAL/CONSTITUTIONAL: No fever or chills. Reports mild weakness. HEAD, EYES, EARS, NOSE AND THROAT: No change in vision. No ear pain or discharge. No sore throat._ CARDIOVASCULAR: No chest pain or shortness of breath_ RESPIRATORY: Denies cough, hemoptysis_ GASTROINTESTINAL: No nausea, vomiting, diarrhea. Reports mild constipation. GENITOURINARY: No dysuria, frequency, or change in urination._ MUSCULOSKELETAL: No joint or muscle swelling or pain. No neck or back pain._ SKIN: No rash_ NEUROLOGIC: No headache, vertigo, loss of consciousness, or change in strength/ sensation._ ENDOCRINE: No increased thirst. No abnormal weight change_ HEMATOLOGIC/LYMPHATIC: No anemia, easy bleeding, or history of blood clots._ ALLERGIC/IMMUNOLOGIC: No hives or skin allergy._ *Physical Exam - Vital Signs Last Vital Signs Temp Pulse Resp BP Pulse Ox 98.7 F 58 L 20 115/60 96 06/29/19 13:46 06/29/19 15:30 06/29/19 15:30 06/29/19 15:30 06/29/19 15:30 - Physical Exam Comments: GENERAL: Awake, alert, and oriented to person/place/time, in no acute distress_ HEAD: No signs of trauma, normocephalic, atraumatic _ EYES: PERRLA, EOMI, sclera anicteric, conjunctiva clear_ ENT: Hearing grossly normal, nares patent, oropharynx clear without exudates. No uvular deviation. Moist mucosa_ NECK: Normal ROM, supple, no lymphadenopathy, JVD, or masses_ LUNGS: No distress, speaks in full sentences, clear to auscultation bilaterally _ HEART: Regular rate and rhythm, normal S1 and S2, no murmurs appreciated, peripheral pulses normal and equal bilaterally._ ABDOMEN: Soft, nontender, normoactive bowel sounds. No guarding, no rebound. No masses. EXTREMITIES: Normal inspection, Normal range of motion. No clubbing or cyanosis. Mild pitting 1+ edema bilaterally. NEUROLOGICAL: Cranial nerves II through XII grossly intact. Normal speech, normal gait, no focal sensorimotor deficits. Strength and sensation 5/5 and equal bilaterally. SKIN: Warm, Dry, normal turgor, no rashes or lesions noted_ ED Treatment Course - LABORATORY CBC & Chemistry Diagram: 06/29/19 15:35 06/29/19 15:35 - ADDITIONAL ORDERS Additional order review: Laboratory Results 06/29/19 06/29/19 06/29/19 15:50 15:35 15:35 PT with INR 11.90 INR 1.01 Sodium 140 Potassium 2.2 L* Chloride 90 L Carbon Dioxide > 45 H Anion Gap 5 L BUN 22.5 H Creatinine 1.2 Est GFR (CKD-EPI)AfAm 49.43 Est GFR (CKD-EPI)NonAf 42.65 Random Glucose 88 Calcium 8.2 L Magnesium 1.9 Total Bilirubin 0.5 AST 27 ALT 17 Alkaline Phosphatase 52 Creatine Kinase Creatine Kinase Index CK-MB (CK-2) Troponin I Total Protein 5.6 L Albumin 3.1 L Urine Color Yellow Urine Appearance Clear Urine pH 5.5 Ur Specific [place] 1.015 Urine Protein Negative Urine Glucose (UA) Negative Urine Ketones Trace H Urine Blood Negative Urine Nitrite Negative Urine Bilirubin Negative Urine Urobilinogen 1.0 Ur Leukocyte Esterase Negative 06/29/19 15:35 PT with INR INR Sodium Potassium Chloride Carbon Dioxide Anion Gap BUN Creatinine Est GFR (CKD-EPI)AfAm Est GFR (CKD-EPI)NonAf Random Glucose Calcium Magnesium Total Bilirubin AST ALT Alkaline Phosphatase Creatine Kinase 228 H Creatine Kinase Index No Result Required. CK-MB (CK-2) < 1.0 Troponin I < 0.02 Total Protein Albumin Urine Color Urine Appearance Urine pH Ur Specific [place] Urine Protein Urine Glucose (UA) Urine Ketones Urine Blood Urine Nitrite Urine Bilirubin Urine Urobilinogen Ur Leukocyte Esterase 06/29/19 15:35 RBC 3.27 L MCV 93.3 MCHC 33.7 RDW 14.3 D MPV 8.9 Neutrophils % 46.0 D Lymphocytes % 38.8 D Monocytes % 12.5 H D Eosinophils % 1.4 D Basophils % 1.3 - Medications Given in the ED: ED Medications Discontinued Medications Generic Name Dose Route Start Last Admin Trade Name Freq PRN Reason Stop Dose Admin Potassium Chloride 40 meq 06/29/19 16:32 06/29/19 17:45 K-Dur - PO 06/29/19 16:33 40 meq ONCE ONE Administration Medical Decision Making - Medical Decision Making 78F with hx of HTN (on lasix, amlodipine) and hypothyroidism (on synthroid) sent in by gusset stitcher for hypokalemia. Unsure of the lab value. On 20 mEq QD potassium supplementation at home. Will obtain CBC, CMP, Mg, EKG, trop. 06/29/19 1600 potassium 2.2. Supplement with 40 mEq PO and 10 mEq IV. EKG shows NSR, 63 bpm, no ST elevation/depression, QTc 489 ms. 06/29/19 1600 Discussed with the hospitalist who accepts the patient for admission and telemetry observation. 06/29/19 1800 Patient has difficulty taking potassium supplement pills. Will change to PO liquid. *DC/Admit/Observation/Transfer Diagnosis at time of Disposition: Weakness, Hypokalemia - Discharge Dispostion Condition at time of disposition: Stable Decision to Admit order: Yes - Referrals - Patient Instructions - Post Discharge Activity
[2019-06-29] MEDS ORDERED: POTASSIUM CHLORIDE ORAL LIQUID 20 MEQ/15 ML ONE (18:38)
[2019-06-29 20:37] VITALS: BMI 29.8
[2019-06-29] MEDS ORDERED: FLUDROCORTISONE ACETATE 0.1 MG TABLET (FP) PO SCH (22:00)
[2019-06-30 01:32] LABS: ALBUMIN 2.7 g/dl (3.4-5.0); ALK PHOS 52 U/L (45-117); ANION GAP 5 MMOL/L (8-16); BILIRUBIN,TOTAL 0.4 mg/dL (0.2-1); BLOOD UREA NITROGEN 19.9 mg/dL (7-18); CALCIUM 7.8 mg/dL (8.5-10.1); CHLORIDE 97 mmol/L (98-107); CO2 42 mmol/L (21-32); CREATININE 1.1 mg/dL (0.55-1.3); GLUCOSE,RANDOM 102 mg/dL (74-106); MAGNESIUM 1.6 mg/dL (1.8-2.4); SGOT/AST 22 U/L (15-37); SGPT/ALT 16 U/L (13-61); SODIUM 145 mmol/L (136-145)
[2019-06-30 01:36] LABS: POTASSIUM 2.7 mmol/L (3.5-5.1)
[2019-06-30] MEDS ORDERED: POTASSIUM CHLORIDE ORAL LIQUID 20 MEQ/15 ML PO ONE (02:16)
[2019-06-30] MEDS: POTASSIUM CHLORIDE 10 MEQ PREMIX IVPB (POTASSIUM RIDER) IVPB SCH ×2 (04:02→05:19)
[2019-06-30] MEDS: LEVOTHYROXINE NA 25 MCG TABLET (FP) PO SCH (06:31)
[2019-06-30 09:29] LABS: BASO % 1.1 % (0-2.0); EOS % 2.6 % (0-4.5); HEMATOCRIT 27.3 % (32.4-45.2); HEMOGLOBIN 9.2 GM/dL (10.7-15.3); LYMPH % 40.4 % (8-40); MCH 31.3 pg (25.7-33.7); MCHC 33.8 g/dl (32.0-36.0); MEAN CELL VOLUME 92.7 fl (80-96); MEAN PLT VOLUME 9.2 fl (7.5-11.1); MONO % 11.9 % (3.8-10.2); PLATELET COUNT 184 K/MM3 (134-434); RBC 2.94 M/mm3 (3.60-5.2); RDW 14.7 % (11.6-15.6); WHITE BLOOD COUNT 4.4 K/mm3 (4.0-10.0)
[2019-06-30 09:42] LABS: ALBUMIN 2.6 g/dl (3.4-5.0); BILIRUBIN,TOTAL 0.5 mg/dL (0.2-1); BLOOD UREA NITROGEN 16.1 mg/dL (7-18); CALCIUM 7.8 mg/dL (8.5-10.1); MAGNESIUM 1.8 mg/dL (1.8-2.4); PHOSPHOROUS 2.1 mg/dL (2.5-4.9); TOT PROT 4.8 g/dl (6.4-8.2)
[2019-06-30 09:44] LABS: POTASSIUM 2.6 mmol/L (3.5-5.1)
[2019-06-30] MEDS ORDERED: POTASSIUM CHLORIDE TABS 20 MEQ TABLET.ER (FP) PO SCH (10:00)
[2019-06-30] MEDS ORDERED: LOSARTAN POTASSIUM 50 MG TABLET (FP) PO SCH (10:00)
--- NOTE | 2019-06-30 10:51 | CONSULT ---
Consult Consult Specialty:: endocrine Referred by:: dr.ammir walker Reason for Consultation:: hypokalemia/leg edema - History of Present Illness Chief Complaint: legs swollen/found to have k 2.2 outpatient History of Present Illness: 78 year old female with a significant past medical history of adrenal insufficiency, hypertension, anemia, hypothyroidism. She was sent to the ED after routine labs she had done showed her potassium to be 2.8. On admission, her K was 2.2 with a normal magnesium. she has lower extremity weakness but no other complaints. She was on a Lasix 40mg and Metolazone 2.5mg with Potassium 40meq supplements which she takes daily. She denies any chest pain, denies any palpitations,diarhea or vomiting. - Past Medical History Cardio/Vascular: Yes: HTN Gastrointestinal: Yes: Other (no abdominal pain/nausea or vomiting.) ...: No - Alcohol/Substance Use Hx Alcohol Use: No - Smoking History Smoking history: Never smoked Have you smoked in the past 12 months: No Home Medications - Allergies Allergies/Adverse Reactions: Allergies Allergy/AdvReac Type Severity Reaction Status Date / Time No Known Allergies Allergy Verified 02/22/19 13:11 - Home Medications Home Medications: Ambulatory Orders Fludrocortisone Acetate [Florinef -] 0.1 mg PO HS tablet 02/27/19 Levothyroxine [Synthroid -] 25 mcg PO DAILY@0700 tablet 02/27/19 Naph,Mb-Db/K pH,Mbdb [PHOS-NaK PACKET -] 1 packet PO BID pow 02/27/19 Aspirin [ASA -] 81 mg PO DAILY 03/26/19 Calcium Carbonate/Vitamin D3 [Calcium 600-Vit D3 200 Tablet] 1 each PO DAILY 05/09 Cholecalciferol (Vitamin D3) [Vitamin D3 -] 1,000 unit PO DAILY 03/26/19 Furosemide [Lasix -] 40 mg PO DAILY 03/26/19 Losartan Potassium 50 mg PO DAILY 03/26/19 Pitavastatin Calcium [Livalo] 4 mg PO DAILY 03/26/19 Polyethylene Glycol 3350 [Miralax 119 gm Btl -] 17 gm PO BID bottle 03/28/19 Potassium Chloride [K-Dur -] 20 meq PO DAILY #30 tablet.er 03/28/19 Ranitidine [Zantac -] 150 mg PO BID #60 tablet 03/28/19 Review of Systems - Review of Systems Constitutional: reports: Weakness Eyes: reports: No Symptoms HENT: reports: No Symptoms Neck: reports: No Symptoms Cardiovascular: reports: No Symptoms Respiratory: reports: No Symptoms Gastrointestinal: reports: No Symptoms Genitourinary: reports: No Symptoms Musculoskeletal: reports: Extremity Pain, Joint Swelling, Muscle Cramps, Muscle Weakness Integumentary: reports: No Symptoms Neurological: reports: Weakness Physical Exam Vital Signs: Vital Signs Temperature 97.8 F 06/30/19 02:18 Pulse Rate 66 06/30/19 05:58 Respiratory Rate 20 06/30/19 05:58 Blood Pressure 131/62 06/30/19 05:58 O2 Sat by Pulse Oximetry (%) 95 06/29/19 20:36 Constitutional: Yes: Calm Eyes: Yes: EOM Intact HENT: Yes: Normocephalic Neck: Yes: WNL Cardiovascular: Yes: Regular Rate and Rhythm Respiratory: Yes: CTA Bilaterally Gastrointestinal: Yes: Normal Bowel Sounds ...Rectal Exam: Yes: Deferred Renal/: Yes: WNL Breast(s): Yes: WNL Musculoskeletal: Yes: Joint Stiffness, Muscle Weakness Extremities: Yes: Delayed Capillary Refill Edema: LLE: 2+, RLE: 2+ Neurological: Yes: Alert, Oriented Labs: CBC, BMP 06/30/19 06:20 06/30/19 06:20 Problem List - Problems (1) Adrenal cortical insufficiency (2) Hypertension Code(s): I10 - ESSENTIAL (PRIMARY) HYPERTENSION (3) Hypokalemia Code(s): E87.6 - HYPOKALEMIA (4) Prophylactic measure Code(s): Z29.9 - ENCOUNTER FOR PROPHYLACTIC MEASURES, UNSPECIFIED (5) Weakness Code(s): R53.1 - WEAKNESS Assessment/Plan Current Active Problems hypoadrenal/mineral corticod deficient Hypertension (Acute) Hypokalemia (Acute) Prophylactic measure (Acute) Weakness (Acute) Abnormal Lab Results 06/29/19 06/29/19 06/29/19 15:35 15:35 15:35 RBC 3.27 L Hgb 10.3 L Hct 30.5 L Lymphocytes % Monocytes % 12.5 H D Potassium 2.2 L* Chloride 90 L Carbon Dioxide > 45 H Anion Gap 5 L BUN 22.5 H Calcium 8.2 L Phosphorus Magnesium Alkaline Phosphatase Creatine Kinase 228 H Total Protein 5.6 L Albumin 3.1 L Urine Ketones 06/29/19 06/29/19 06/30/19 15:50 23:00 06:20 RBC 2.94 L Hgb 9.2 L Hct 27.3 L Lymphocytes % 40.4 H Monocytes % 11.9 H Potassium 2.7 L* Chloride 97 L Carbon Dioxide 42 H Anion Gap 5 L BUN 19.9 H Calcium 7.8 L Phosphorus Magnesium 1.6 L Alkaline Phosphatase Creatine Kinase 200 H Total Protein 5.0 L Albumin 2.7 L Urine Ketones Trace H 06/30/19 06:20 RBC Hgb Hct Lymphocytes % Monocytes % Potassium 2.6 L* Chloride Carbon Dioxide 41 H Anion Gap 5 L BUN Calcium 7.8 L Phosphorus 2.1 L Magnesium Alkaline Phosphatase 42 L Creatine Kinase Total Protein 4.8 L Albumin 2.6 L Urine Ketones plan: replace k acth stim testing cortisol level 30/60 min postural bp check check tsh free t4 aldactone 50mg daily
--- NOTE | 2019-06-30 11:19 | PN ---
Progress Note, Physician Chief Complaint: Hypokalemia B/L lower extremity edema History of Present Illness: Previous notes and events reviewed awake and alert NAD K 2.6 denies chest pain or SOB - Current Medication List Current Medications: Active Medications Aspirin (Asa -) 81 mg PO DAILY [facility] Cosyntropin (Cortrosyn -) 0.25 mg IVPUSH NOW ONE Stop: 06/30/19 13:01 Fludrocortisone Acetate (Florinef -) 0.05 mg PO HS [facility] Potassium Chloride (Potassium Chloride 10 Meq Premix Ivpb -) 10 meq in 100 mls @ 100 mls/hr IVPB Q60M [facility] Stop: 06/30/19 11:59 Levothyroxine Sodium (Synthroid -) 25 mcg PO DAILY@0700 [facility] Last Admin: 06/30/19 06:31 Dose: 25 mcg Potassium Chloride (K-Dur -) 20 meq PO BID [facility] Stop: 07/01/19 12:00 - Objective Vital Signs: Vital Signs Temperature 97.8 F 06/30/19 02:18 Pulse Rate 66 06/30/19 05:58 Respiratory Rate 20 06/30/19 05:58 Blood Pressure 131/62 06/30/19 05:58 O2 Sat by Pulse Oximetry (%) 95 06/29/19 20:36 Constitutional: Yes: No Distress, Calm Eyes: Yes: Conjunctiva Clear HENT: Yes: Atraumatic Cardiovascular: Yes: Regular Rate and Rhythm Respiratory: Yes: Regular, CTA Bilaterally Gastrointestinal: Yes: Normal Bowel Sounds, Soft Musculoskeletal: Yes: Muscle Weakness Extremities: Yes: WNL Edema: Yes Edema: LLE: 1+, RLE: 1+ Neurological: Yes: Alert Psychiatric: Yes: Alert, Oriented Labs: CBC, BMP 06/30/19 06:20 06/30/19 06:20 INR, PTT INR 1.01 (0.83-1.09) 06/29/19 15:35 Microbiology 06/29/19 15:50 Urine - Urine Clean Catch Urine Culture - Final NO GROWTH OBTAINED Problem List - Problems (1) Adrenal cortical insufficiency Assessment/Plan: -Endocrinology consult -ACTH, cortisol 30/60min test Code(s): E27.40 - UNSPECIFIED ADRENOCORTICAL INSUFFICIENCY (2) Hypertension Assessment/Plan: -Amlodipine, Losartan -low Na diet Code(s): I10 - ESSENTIAL (PRIMARY) HYPERTENSION (3) Hypokalemia Assessment/Plan: -K 2.6 -KCl 20mEq PO BID -KCl 10mEq IVPB x 2 -monitor elecetro;ytes and repelete as needed -tele monitoring Code(s): E87.6 - HYPOKALEMIA (4) Weakness Assessment/Plan: -PT Code(s): R53.1 - WEAKNESS (5) Hypothyroidism Assessment/Plan: -Levothyroxine -TSH and T4 -Endocrinology consult Code(s): E03.9 - HYPOTHYROIDISM, UNSPECIFIED Qualifiers: Qualified Code(s): E03.9 - Hypothyroidism, unspecified (6) Peripheral edema Assessment/Plan: -Aldactone -elevate b/l lower extremity Code(s): R60.9 - EDEMA, UNSPECIFIED Assessment/Plan see problem list dvt ppx
--- NOTE | 2019-06-30 11:23 | PN ---
Progress Note, Physician Chief Complaint: Hypokalemia B/L lower extremity edema History of Present Illness: Previous notes and events reviewed awake and alert NAD denies chest pain or SOB K 2.6 - Current Medication List Current Medications: Active Medications Aspirin (Asa -) 81 mg PO DAILY [facility] Cosyntropin (Cortrosyn -) 0.25 mg IVPUSH NOW ONE Stop: 06/30/19 13:01 Fludrocortisone Acetate (Florinef -) 0.05 mg PO HS [facility] Potassium Chloride (Potassium Chloride 10 Meq Premix Ivpb -) 10 meq in 100 mls @ 100 mls/hr IVPB Q60M [facility] Stop: 06/30/19 11:59 Levothyroxine Sodium (Synthroid -) 25 mcg PO DAILY@0700 [facility] Last Admin: 06/30/19 06:31 Dose: 25 mcg Potassium Chloride (K-Dur -) 20 meq PO BID [facility] Stop: 07/01/19 12:00 - Objective Vital Signs: Vital Signs Temperature 97.8 F 06/30/19 02:18 Pulse Rate 66 06/30/19 05:58 Respiratory Rate 20 06/30/19 05:58 Blood Pressure 131/62 06/30/19 05:58 O2 Sat by Pulse Oximetry (%) 95 06/29/19 20:36 Constitutional: Yes: No Distress, Calm Eyes: Yes: Conjunctiva Clear HENT: Yes: Atraumatic Cardiovascular: Yes: Regular Rate and Rhythm Respiratory: Yes: Regular, CTA Bilaterally Gastrointestinal: Yes: Normal Bowel Sounds, Soft Musculoskeletal: Yes: Muscle Weakness Extremities: Yes: WNL Edema: Yes Edema: LLE: 1+, RLE: 1+ Neurological: Yes: Alert, Oriented Psychiatric: Yes: Alert, Oriented Labs: CBC, BMP 06/30/19 06:20 06/30/19 06:20 INR, PTT INR 1.01 (0.83-1.09) 06/29/19 15:35 Microbiology 06/29/19 15:50 Urine - Urine Clean Catch Urine Culture - Final NO GROWTH OBTAINED Problem List - Problems (1) Adrenal cortical insufficiency Assessment/Plan: -Endocrinology consult -ACTH level, cortisol 30/60min level Code(s): E27.40 - UNSPECIFIED ADRENOCORTICAL INSUFFICIENCY (2) Hypertension Code(s): I10 - ESSENTIAL (PRIMARY) HYPERTENSION (3) Hypokalemia Code(s): E87.6 - HYPOKALEMIA (4) Weakness Code(s): R53.1 - WEAKNESS (5) Hypothyroidism Code(s): E03.9 - HYPOTHYROIDISM, UNSPECIFIED Qualifiers: Hypothyroidism type: unspecified Qualified Code(s): E03.9 - Hypothyroidism , unspecified
[2019-06-30] MEDS: ASPIRIN 81 MG CHEWABLE TABLETS PO SCH (11:37)
[2019-06-30] MEDS: POTASSIUM CHLORIDE TABS 20 MEQ TABLET.ER (FP) PO SCH ×2 (11:37→21:38)
[2019-06-30] MEDS: KCL 10 MEQ IVPB 10 MEQ/100 ML INFUS.BAG IVPB SCH ×2 (11:37→12:00)
[2019-06-30] MEDS: POLYETHYLENE GLYCOL 3350 119 GM BTL PO SCH (12:30)
[2019-06-30] MEDS ORDERED: COSYNTROPIN 0.25 MG VIAL IVPUSH ONE (13:00)
--- NOTE | 2019-06-30 15:20 | EKG ---
Test Reason : Blood Pressure : / mmHG Vent. Rate : 063 BPM Atrial Rate : 063 BPM P-R Int : 172 ms QRS Dur : 074 ms QT Int : 478 ms P-R-T Axes : 076 027 023 degrees QTc Int : 489 ms NORMAL SINUS RHYTHM NORMAL ECG WHEN COMPARED WITH ECG OF 26-MAR-2019 11:35, T WAVE INVERSION NOW EVIDENT IN LATERAL LEADS Confirmed by MD Kasi, Bhavik ([id number]) on 06/30/2019 3:20:02 PM Referred By: Confirmed By:Bhavik Villaseñor MD
[2019-06-30] MEDS ORDERED: PT OWN MED DRAWER 7, Y5N ONE (21:04)
[2019-06-30] MEDS: FLUDROCORTISONE ACETATE 0.1 MG TABLET (FP) PO SCH (21:38)
[2019-06-30] MEDS: HEPARIN NA (PORCINE) 5,000 UNITS/ML 1ML VIAL SQ SCH (21:38)
[2019-07-01] MEDS: LEVOTHYROXINE NA 25 MCG TABLET (FP) PO SCH (06:28)
[2019-07-01 08:06] LABS: HEMATOCRIT 26.7 % (32.4-45.2); HEMOGLOBIN 8.9 GM/dL (10.7-15.3); MCH 30.9 pg (25.7-33.7); MCHC 33.4 g/dl (32.0-36.0); MEAN CELL VOLUME 92.6 fl (80-96); PLATELET COUNT 180 K/MM3 (134-434); RBC 2.88 M/mm3 (3.60-5.2); RDW 14.1 % (11.6-15.6); WHITE BLOOD COUNT 5.2 K/mm3 (4.0-10.0)
--- NOTE | 2019-07-01 09:03 | PN ---
Progress Note, Physician Chief Complaint: Hypokalemia B/L lower extremity edema History of Present Illness: Previous notes and events reviewed awake and alert NAD denies chest pain or SOB K 2.9 - Current Medication List Current Medications: Active Medications Aspirin (Asa -) 81 mg PO DAILY [facility] Last Admin: 06/30/19 11:37 Dose: 81 mg Fludrocortisone Acetate (Florinef -) 0.05 mg PO HS [facility] Last Admin: 06/30/19 21:38 Dose: 0.05 mg Heparin Sodium (Porcine) (Heparin -) 5,000 unit SQ BID [facility] Last Admin: 06/30/19 21:38 Dose: 5,000 unit Levothyroxine Sodium (Synthroid -) 25 mcg PO DAILY@0700 [facility] Last Admin: 07/01/19 06:28 Dose: 25 mcg Polyethylene Glycol (Miralax (For Daily Use) -) 17 gm PO DAILY [facility] Last Admin: 06/30/19 12:30 Dose: 17 gm Potassium Chloride (K-Dur -) 20 meq PO BID [facility] Stop: 07/01/19 12:00 Last Admin: 06/30/19 21:38 Dose: 20 meq Spironolactone (Aldactone -) 50 mg PO DAILY [facility] - Objective Vital Signs: Vital Signs Temperature 98.4 F 07/01/19 06:00 Pulse Rate 66 07/01/19 06:00 Respiratory Rate 18 07/01/19 06:00 Blood Pressure 109/48 L 07/01/19 06:00 O2 Sat by Pulse Oximetry (%) 98 06/30/19 20:57 Constitutional: Yes: No Distress, Calm Eyes: Yes: Conjunctiva Clear HENT: Yes: Atraumatic Cardiovascular: Yes: Regular Rate and Rhythm Respiratory: Yes: Regular, CTA Bilaterally Gastrointestinal: Yes: Normal Bowel Sounds, Soft Musculoskeletal: Yes: Muscle Weakness Extremities: Yes: WNL Edema: Yes Edema: LLE: 1+, RLE: 1+ Neurological: Yes: Alert, Oriented Psychiatric: Yes: Alert, Oriented Labs: CBC, BMP 07/01/19 06:50 INR, PTT INR 1.01 (0.83-1.09) 06/29/19 15:35 Microbiology 06/29/19 15:50 Urine - Urine Clean Catch Urine Culture - Final NO GROWTH OBTAINED Problem List - Problems (1) Adrenal cortical insufficiency Assessment/Plan: -Endocrinology consult -ACTH level, cortisol 30/60min level Code(s): E27.40 - UNSPECIFIED ADRENOCORTICAL INSUFFICIENCY (2) Hypertension Assessment/Plan: -Amlodipine, Losartan -low Na diet Code(s): I10 - ESSENTIAL (PRIMARY) HYPERTENSION (3) Hypokalemia Assessment/Plan: -K 2.9 -KCl 10mEq IVPB x 1 -KCl 20mEq PO BID -monitor elecetrolytes and repelete as needed -tele monitoring Code(s): E87.6 - HYPOKALEMIA (4) Weakness Assessment/Plan: -PT -fall precaution Code(s): R53.1 - WEAKNESS (5) Hypothyroidism Assessment/Plan: -Levothyroxine -TSH level pending -Endocrinology on board Code(s): E03.9 - HYPOTHYROIDISM, UNSPECIFIED Qualifiers: Hypothyroidism type: unspecified Qualified Code(s): E03.9 - Hypothyroidism , unspecified Assessment/Plan see problem list dvt ppx D/C home when K+ improve
[2019-07-01 09:07] LABS: BLOOD UREA NITROGEN 16.4 mg/dL (7-18); CALCIUM 7.7 mg/dL (8.5-10.1)
[2019-07-01 09:08] LABS: POTASSIUM 2.9 mmol/L (3.5-5.1)
[2019-07-01] MEDS ORDERED: ASPIRIN COATED 81 MG TABLET.EC ONE (11:10)
[2019-07-01] MEDS: POTASSIUM CHLORIDE TABS 20 MEQ TABLET.ER (FP) PO SCH (12:09)
[2019-07-01] MEDS: HEPARIN NA (PORCINE) 5,000 UNITS/ML 1ML VIAL SQ SCH ×2 (12:09→22:32)
[2019-07-01] MEDS: ASPIRIN 81 MG CHEWABLE TABLETS PO SCH (12:09)
[2019-07-01] MEDS: SPIRONOLACTONE 25 MG TABLET (FP) PO SCH (12:09)
[2019-07-01] MEDS: POLYETHYLENE GLYCOL 3350 119 GM BTL PO SCH (12:10)
[2019-07-01] MEDS ORDERED: KCL 10 MEQ IVPB 10 MEQ/100 ML INFUS.BAG IVPB ONE (12:15)
[2019-07-01] MEDS: FLUDROCORTISONE ACETATE 0.1 MG TABLET (FP) PO SCH (22:32)
[2019-07-01] MEDS ORDERED: POTASSIUM CHLORIDE TABS 10 MEQ TABLET.ER (FP) PO ONE ×2 (22:44→22:47)
[2019-07-01] MEDS ORDERED: DOCUSATE SODIUM 100 MG CAPSULE (FP) PO SCH (23:00)
[2019-07-02] MEDS: LEVOTHYROXINE NA 25 MCG TABLET (FP) PO SCH (06:50)
[2019-07-02 09:12] LABS: HEMATOCRIT 27.2 % (32.4-45.2); HEMOGLOBIN 9.3 GM/dL (10.7-15.3); MCH 31.8 pg (25.7-33.7); MCHC 34.1 g/dl (32.0-36.0); MEAN CELL VOLUME 93.3 fl (80-96); MEAN PLT VOLUME 9.5 fl (7.5-11.1); PLATELET COUNT 182 K/MM3 (134-434); RBC 2.91 M/mm3 (3.60-5.2); RDW 14.3 % (11.6-15.6); WHITE BLOOD COUNT 5.1 K/mm3 (4.0-10.0)
[2019-07-02] MEDS ORDERED: POTASSIUM CHLORIDE TABS 10 MEQ TABLET.ER (FP) PO ONE ×2 (10:00)
[2019-07-02] MEDS ORDERED: POTASSIUM CHLORIDE TABS 10 MEQ TABLET.ER (FP) PO SCH (10:00)
[2019-07-02 10:14] LABS: ALBUMIN 2.6 g/dl (3.4-5.0); BILIRUBIN,TOTAL 0.4 mg/dL (0.2-1); BLOOD UREA NITROGEN 13.6 mg/dL (7-18); CALCIUM 7.8 mg/dL (8.5-10.1); CREATININE 0.9 mg/dL (0.55-1.3); POTASSIUM 3.3 mmol/L (3.5-5.1); TOT PROT 4.8 g/dl (6.4-8.2)
[2019-07-02] MEDS: SPIRONOLACTONE 25 MG TABLET (FP) PO SCH (10:22)
[2019-07-02] MEDS: ASPIRIN 81 MG CHEWABLE TABLETS PO SCH (10:22)
[2019-07-02] MEDS: HEPARIN NA (PORCINE) 5,000 UNITS/ML 1ML VIAL SQ SCH (10:22)
[2019-07-02] MEDS: POLYETHYLENE GLYCOL 3350 119 GM BTL PO SCH (10:22)
--- NOTE | 2019-07-02 12:14 | CONSULT ---
Consult - text type - Consultation Consultation Note: Renal consult for Hypokalemia This is a 78 year old woman with history of adrenal insufficiency, hypertension, hypothyroidism who presented with hypokalemia on outpatient labs. Pt was on Lasix at home. Pt also on fludrocortisone for adrenal insufficiency. Denies any muscle weakness, sob or chest pain. Denies any diarrhea or changes in dietary habits at home. K improved s/p supplementation. PMhx: as above Allergies: NKDA Family Hx: NC Social Hx: No T/A/D ROS: As per HPI, all other pertinent ros negative Home Medications Medication Instructions Recorded Fludrocortisone Acetate [Florinef 0.1 mg PO HS tablet 02/27/19 -] Levothyroxine [Synthroid -] 25 mcg PO DAILY@0700 tablet 02/27/19 Naph,Mb-Db/K pH,Mbdb [PHOS-NaK 1 packet PO BID pow 02/27/19 PACKET -] Aspirin [ASA -] 81 mg PO DAILY 03/26/19 Calcium Carbonate/Vitamin D3 1 each PO DAILY 03/26/19 [Calcium 600-Vit D3 200 Tablet] Cholecalciferol (Vitamin D3) 1,000 unit PO DAILY 03/26/19 [Vitamin D3 -] Furosemide [Lasix -] 40 mg PO DAILY 03/26/19 Losartan Potassium 50 mg PO DAILY 03/26/19 Pitavastatin Calcium [Livalo] 4 mg PO DAILY 03/26/19 Polyethylene Glycol 3350 [Miralax 17 gm PO BID bottle 03/28/19 119 gm Btl -] Potassium Chloride [K-Dur -] 20 meq PO DAILY #30 tablet.er 03/28/19 Ranitidine [Zantac -] 150 mg PO BID #60 tablet 03/28/19 Vital Signs Temperature 98.4 F 07/02/19 09:00 Pulse Rate 71 07/02/19 09:00 Respiratory Rate 20 07/02/19 09:00 Blood Pressure 118/56 L 07/02/19 09:00 O2 Sat by Pulse Oximetry (%) 98 07/02/19 09:00 Intake & Output 06/29/19 06/30/19 07/01/19 07/02/19 23:59 23:59 23:59 23:59 Intake Total 125 300 Balance 125 300 Weight 62.505 kg NAD awake and alert neck supple, no JVD RRR, no M/R CTA soft NT/ND no LE edema CBC, BMP 07/02/19 07:10 07/02/19 07:10 Current Medications Aspirin (Asa -) 81 mg PO DAILY [facility] Last Admin: 07/02/19 10:22 Dose: 81 mg Docusate Sodium (Colace -) 300 mg PO HS [facility] Last Admin: 07/01/19 23:07 Dose: 300 mg Fludrocortisone Acetate (Florinef -) 0.05 mg PO HS [facility] Last Admin: 07/01/19 22:32 Dose: 0.05 mg Heparin Sodium (Porcine) (Heparin -) 5,000 unit SQ BID [facility] Last Admin: 07/02/19 10:22 Dose: 5,000 unit Levothyroxine Sodium (Synthroid -) 25 mcg PO DAILY@0700 [facility] Last Admin: 07/02/19 06:50 Dose: 25 mcg Polyethylene Glycol (Miralax (For Daily Use) -) 17 gm PO DAILY [facility] Last Admin: 07/02/19 10:22 Dose: 17 gm Senna (Senna -) 2 tab PO [facility] Spironolactone (Aldactone -) 50 mg PO DAILY [facility] Last Admin: 07/02/19 10:22 Dose: 50 mg 78 year old woman with history of adrenal insufficiency, hypertension, hypothyroidism who presented with hypokalemia on outpatient labs. #Hypokalemia secondary to loop diuretics + Fludrocortisone #Adrenal insufficiency #Hypertension #Hypothyroidism K is improved s/p supplementation continue aldactone 50mg Daily would maintain off loop diuretics if edema is controlled on potassium sparing diuretics alone continue fludrocrotisone continue daily 20meq KCL supplement Trend BMP daily Thank you Mickey Coleman DO
[2019-07-02 14:27] LABS: BILIRUBIN,TOTAL 0.3 mg/dL (0.2-1); BLOOD UREA NITROGEN 12.4 mg/dL (7-18); CALCIUM 8.1 mg/dL (8.5-10.1); POTASSIUM 4.2 mmol/L (3.5-5.1); TOT PROT 5.8 g/dl (6.4-8.2)
--- NOTE | 2019-07-02 15:17 | DS ---
Physical Examination Vital Signs: Vital Signs Temperature 98.4 F 07/02/19 09:00 Pulse Rate 71 07/02/19 09:00 Respiratory Rate 20 07/02/19 09:00 Blood Pressure 118/56 L 07/02/19 09:00 O2 Sat by Pulse Oximetry (%) 98 07/02/19 09:00 Constitutional: Yes: Calm, Thin Cardiovascular: Yes: Regular Rate and Rhythm, S1, S2 Respiratory: Yes: CTA Bilaterally Gastrointestinal: Yes: Normal Bowel Sounds, Soft Neurological: Yes: Alert, Oriented Labs: CBC, BMP 07/02/19 07:10 07/02/19 13:40 Discharge Summary Reason For Visit: HYPOKALEMIA Current Active Problems Adrenal cortical insufficiency (Acute) Hypertension (Acute) Hypokalemia (Acute) Prophylactic measure (Acute) Weakness (Acute) Hospital Course: Patient is a 78 year old female with a significant past medical history of hypertension, anemia, hypothyroidism. She was sent to the ED after routine labs she had done yesterday showed her potassium to be 2.8. On admission, her K was 2.2 with a normal magnesium. Patient reports lower extremity weakness but no other complaints. She is on a Lasix 40mg and Metolazone 2.5mg with Potassium 40meq supplements which she takes daily. She denies any chest pain, denies any palpitations. No abdominal pain, no nausea, no vomiting nor frequent bowel movements. No other complaints. She is noted to have +2 lower ext edema non pitting. admitted to telemetry got potassium supplements now potasssium improved Condition: Stable - Instructions Disposition: HOME - Home Medications Comprehensive Discharge Medication List: Ambulatory Orders Fludrocortisone Acetate [Florinef -] 0.1 mg PO HS tablet 02/27/19 Levothyroxine [Synthroid -] 25 mcg PO DAILY@0700 tablet 02/27/19 Naph,Mb-Db/K pH,Mbdb [PHOS-NaK PACKET -] 1 packet PO BID pow 02/27/19 Aspirin [ASA -] 81 mg PO DAILY 03/26/19 Calcium Carbonate/Vitamin D3 [Calcium 600-Vit D3 200 Tablet] 1 each PO DAILY 05/09 Cholecalciferol (Vitamin D3) [Vitamin D3 -] 1,000 unit PO DAILY 03/26/19 Furosemide [Lasix -] 40 mg PO DAILY 05/06/19 Losartan Potassium 50 mg PO DAILY 03/26/19 Pitavastatin Calcium [Livalo] 4 mg PO DAILY 03/26/19 Polyethylene Glycol 3350 [Miralax 119 gm Btl -] 17 gm PO BID bottle 03/28/19 Potassium Chloride [K-Dur -] 20 meq PO DAILY #30 tablet.er 03/28/19 Ranitidine [Zantac -] 150 mg PO BID #60 tablet 03/28/19
[2019-07-02 15:41] VITALS: BP 126/57; PULSE 72; TEMP 98.2
--- NOTE | 2019-07-02 18:35 | PN ---
Progress Note (short form) - Note Progress Note: feeling better off furosemide bp stable k stable no complaint mineral corticoid deficient adrenal deficient Abnormal Lab Results 07/02/19 07/02/19 07/02/19 07:10 07:10 13:40 RBC 2.91 L Hgb 9.3 L Hct 27.2 L Potassium 3.3 L Carbon Dioxide 37 H 35 H Anion Gap 6 L 6 L Calcium 7.8 L 8.1 L Total Protein 4.8 L 5.8 L Albumin 2.6 L 3.0 L plan; kdur 20meq aldactone 50mg florinef .1mg follow up op Problem List - Problems (1) Adrenal cortical insufficiency (2) Hypertension Code(s): I10 - ESSENTIAL (PRIMARY) HYPERTENSION (3) Hypokalemia Code(s): E87.6 - HYPOKALEMIA (4) Prophylactic measure Code(s): Z29.9 - ENCOUNTER FOR PROPHYLACTIC MEASURES, UNSPECIFIED (5) Weakness Code(s): R53.1 - WEAKNESS
[2019-07-02] MEDS ORDERED: SENNOSIDES 8.6MG TABLET (FP) PO SCH (22:00)
== END 2019-07-02 17:06 | disposition home or self-care (01) | DRG 641 ==
LOC: JER 13:43 → JERBED 16:33 → J4W 19:52
PROVIDERS: ADMIT Family Medicine; ATTEND Family Medicine
DX: E87.6 Hypokalemia (principal); E27.40 Unspecified adrenocortical insufficiency; E03.9 Hypothyroidism, unspecified; I10 Essential (primary) hypertension; D64.9 Anemia, unspecified; R53.1 Weakness; R60.9 Edema, unspecified
CPT/HCPCS: 36415; 80048; 80053; 81003; 82024; 82533; 82550; 82553; 83735; 84100; 84443; 84484; 85025; 85027; 85610; 87086; 93005; 93010; 97116-GP; 99283-25; J0834; J1644

== ENCOUNTER 2020-10-29 11:19 | Inpatient (IN) | payer OTHER ==
[2020-10-29] MEDS ORDERED: SODIUM CHLORIDE 1,000 ML IV STA (12:42)
[2020-10-29] MEDS ORDERED: ACETAMINOPHEN 1000 MG/100 ML BAG IVPB ONE (12:42)
[2020-10-29] MEDS ORDERED: ACETAMINOPHEN INJECTION 100 ML IVPB ONE (13:07)
[2020-10-29 13:23] LABS: BASO % 0.3 % (0-2.0); EOS % 0.2 % (0-4.5); HEMATOCRIT 37.1 % (32.4-45.2); HEMOGLOBIN 11.6 GM/dL (10.7-15.3); LYMPH % 11.1 % (8-40); MCH 28.9 pg (25.7-33.7); MCHC 31.2 g/dl (32.0-36.0); MEAN CELL VOLUME 92.5 fl (80-96); MEAN PLT VOLUME 9.8 fl (7.5-11.1); MONO % 5.6 % (3.8-10.2); NEUT % 82.8 % (42.8-82.8); PLATELET COUNT 158 K/MM3 (134-434); RBC 4.02 M/mm3 (3.60-5.2); RDW 14.1 % (11.6-15.6); WHITE BLOOD COUNT 7.5 K/mm3 (4.0-10.0)
[2020-10-29 13:28] LABS: INR 0.95 (0.83-1.09); PROTHROMBIN TIME (PATIENT) 11.7 SEC (9.7-13.0)
[2020-10-29 13:39] LABS: ACTIVATED PTT 31.7 SECONDS (25.2-36.5)
[2020-10-29 13:45] LABS: CALCIUM 9.1 mg/dL (8.5-10.1)
[2020-10-29 13:46] LABS: ALBUMIN 3.6 g/dl (3.4-5.0); BLOOD UREA NITROGEN 15.4 mg/dL (7-18)
[2020-10-29 13:49] LABS: CREATININE 1.2 mg/dL (0.55-1.3)
[2020-10-29 13:50] LABS: BILIRUBIN,TOTAL 0.5 mg/dL (0.2-1)
[2020-10-29 13:51] LABS: TOT PROT 6.7 g/dl (6.4-8.2)
[2020-10-29] MEDS ORDERED: ACETAMINOPHEN 1000 MG/100 ML BAG IVPB PRN (17:19)
[2020-10-29] MEDS ORDERED: ONDANSETRON 4 MG/2 ML VIAL IVPUSH PRN (17:22)
[2020-10-29] MEDS ORDERED: LOSARTAN POTASSIUM 50 MG TABLET ONE (18:00)
[2020-10-29] MEDS ORDERED: PANTOPRAZOLE SODIUM 40 MG/100 ML BAG IVPB ONE (18:00)
[2020-10-29] MEDS: LOSARTAN POTASSIUM 50 MG TABLET PO SCH (18:15)
[2020-10-29] MEDS: PANTOPRAZOLE SODIUM 40 MG VIAL IVPUSH SCH (18:15)
[2020-10-29] MEDS: D5-NS + 20 MEQ KCL - 20 MEQ/1,000 ML INFUS.BAG IV SCH (19:29)
[2020-10-29 20:35] LABS: PH,URINE 5.5 (5.0-8.0); URINE APPEARANCE CLEAR; URINE BILIRUBIN NEGATIVE (NEGATIVE); URINE COLOR YELLOW; URINE GLUCOSE (UA) NEGATIVE (NEGATIVE); URINE KETONE NEGATIVE (NEGATIVE); URINE LEUK ESTERASE NEGATIVE (NEGATIVE); URINE NITRITE NEGATIVE (NEGATIVE); URINE PROTEIN NEGATIVE (NEGATIVE); URINE UROBILINOGEN 0.2 mg/dL (0.2-1.0)
[2020-10-29] MEDS ORDERED: ATORVASTATIN CA 10 MG TABLET (FP) ONE (23:40)
[2020-10-29] MEDS ORDERED: HEPARIN NA (PORCINE) 5,000 UNITS/ML 1ML VIAL ONE (23:40)
[2020-10-29] MEDS: FLUDROCORTISONE ACETATE 0.1 MG TABLET (FP) PO SCH (23:44)
[2020-10-29] MEDS: ATORVASTATIN CA 10 MG TABLET (FP) PO SCH (23:44)
[2020-10-29] MEDS: HEPARIN NA (PORCINE) 5,000 UNITS/ML 1ML VIAL SQ SCH (23:44)
[2020-10-30] MEDS ORDERED: LEVOTHYROXINE NA 25 MCG TABLET (FP) ONE (06:27)
[2020-10-30] MEDS: LEVOTHYROXINE NA 25 MCG TABLET (FP) PO SCH (06:40)
[2020-10-30 07:51] LABS: BASO % 0.4 % (0-2.0); EOS % 1.7 % (0-4.5); HEMOGLOBIN 10.4 GM/dL (10.7-15.3); LYMPH % 23.5 % (8-40); MCHC 32.5 g/dl (32.0-36.0); MEAN CELL VOLUME 92.6 fl (80-96); MONO % 8.5 % (3.8-10.2); NEUT % 65.9 % (42.8-82.8); PLATELET COUNT 131 K/MM3 (134-434); RBC 3.46 M/mm3 (3.60-5.2); RDW 14.1 % (11.6-15.6); WHITE BLOOD COUNT 5.1 K/mm3 (4.0-10.0)
[2020-10-30 08:05] LABS: BLOOD UREA NITROGEN 11.2 mg/dL (7-18); CALCIUM 8.2 mg/dL (8.5-10.1)
[2020-10-30] MEDS ORDERED: HEPARIN NA (PORCINE) 5,000 UNITS/ML 1ML VIAL ONE (09:29)
[2020-10-30] MEDS ORDERED: PANTOPRAZOLE SODIUM 40 MG VIAL ONE (09:29)
[2020-10-30] MEDS ORDERED: LOSARTAN POTASSIUM 50 MG TABLET ONE (09:29)
[2020-10-30] MEDS ORDERED: POTASSIUM CHLORIDE ORAL LIQUID 20 MEQ/15 ML ONE (09:29)
[2020-10-30] MEDS: PANTOPRAZOLE SODIUM 40 MG VIAL IVPUSH SCH (09:43)
[2020-10-30] MEDS: CHOLECALCIFEROL (VIT D3) 1,000 UNIT (25 MCG) TABLET PO SCH (09:43)
[2020-10-30] MEDS: POTASSIUM CHLORIDE ORAL LIQUID 20 MEQ/15 ML PO SCH (09:43)
[2020-10-30] MEDS: HEPARIN NA (PORCINE) 5,000 UNITS/ML 1ML VIAL SQ SCH ×2 (09:43→21:52)
[2020-10-30] MEDS: LOSARTAN POTASSIUM 50 MG TABLET PO SCH (09:43)
[2020-10-30 10:35] LABS: HEMATOCRIT 32.7 % (32.4-45.2); HEMOGLOBIN 10.3 GM/dL (10.7-15.3); MCH 29.4 pg (25.7-33.7); MCHC 31.6 g/dl (32.0-36.0); MEAN CELL VOLUME 93.1 fl (80-96); MEAN PLT VOLUME 9.7 fl (7.5-11.1); PLATELET COUNT 140 K/MM3 (134-434); RBC 3.51 M/mm3 (3.60-5.2); RDW 14.2 % (11.6-15.6); WHITE BLOOD COUNT 6.1 K/mm3 (4.0-10.0)
[2020-10-30 11:03] LABS: IRON SERUM 54 ug/dL (50-175)
[2020-10-30 11:04] LABS: TOTAL IRON BINDING CAPACITY 184 ug/dL (250-450)
[2020-10-30] MEDS ORDERED: POLYETHYLENE GLYCOL 3350 255 GM BTL PO ONE (14:00)
[2020-10-30] MEDS: D5-NS + 20 MEQ KCL - 20 MEQ/1,000 ML INFUS.BAG IV SCH ×2 (15:08→21:49)
[2020-10-30 15:51] VITALS: BMI 30.9
[2020-10-30] MEDS ORDERED: PT OWN MED DRAWER 7, Y5N ONE (21:24)
[2020-10-30] MEDS: ATORVASTATIN CA 10 MG TABLET (FP) PO SCH (21:52)
[2020-10-30] MEDS: FLUDROCORTISONE ACETATE 0.1 MG TABLET (FP) PO SCH (22:36)
[2020-10-31] MEDS ORDERED: SODIUM PHOSPHATE/NA BIPHOS 133 ML ENEMA RC ONE (06:00)
[2020-10-31] MEDS: LEVOTHYROXINE NA 25 MCG TABLET (FP) PO SCH (06:13)
[2020-10-31 09:26] LABS: HEMATOCRIT 36.1 % (32.4-45.2); HEMOGLOBIN 11.2 GM/dL (10.7-15.3); MCH 29.8 pg (25.7-33.7); MEAN CELL VOLUME 96.3 fl (80-96); MEAN PLT VOLUME 10.3 fl (7.5-11.1); PLATELET COUNT 140 K/MM3 (134-434); RBC 3.75 M/mm3 (3.60-5.2); RDW 14.7 % (11.6-15.6); WHITE BLOOD COUNT 4.2 K/mm3 (4.0-10.0)
[2020-10-31] MEDS: PANTOPRAZOLE SODIUM 40 MG VIAL IVPUSH SCH (10:47)
[2020-10-31] MEDS: LOSARTAN POTASSIUM 50 MG TABLET PO SCH (10:47)
[2020-10-31] MEDS: HEPARIN NA (PORCINE) 5,000 UNITS/ML 1ML VIAL SQ SCH ×2 (12:34→21:26)
[2020-10-31] MEDS: POTASSIUM CHLORIDE ORAL LIQUID 20 MEQ/15 ML PO SCH (12:34)
[2020-10-31] MEDS: CYANOCOBALAMIN (VITAMIN B-12) 1000 MCG/1 ML VIAL IM SCH (17:14)
[2020-10-31] MEDS: CHOLECALCIFEROL (VIT D3) 1,000 UNIT (25 MCG) TABLET PO SCH (17:14)
[2020-10-31] MEDS: ATORVASTATIN CA 10 MG TABLET (FP) PO SCH (21:26)
[2020-10-31] MEDS: FLUDROCORTISONE ACETATE 0.1 MG TABLET (FP) PO SCH (21:28)
[2020-11-01] MEDS ORDERED: PT OWN MED DRAWER 7, Y5N ONE ×4 (05:37→09:14)
[2020-11-01] MEDS: LEVOTHYROXINE NA 25 MCG TABLET (FP) PO SCH (07:20)
[2020-11-01 08:24] VITALS: BP 153/66; PULSE 63; TEMP 98.2
[2020-11-01] MEDS: CHOLECALCIFEROL (VIT D3) 1,000 UNIT (25 MCG) TABLET PO SCH (09:29)
[2020-11-01] MEDS: CYANOCOBALAMIN (VITAMIN B-12) 1000 MCG/1 ML VIAL IM SCH (09:29)
[2020-11-01] MEDS: PANTOPRAZOLE SODIUM 40 MG VIAL IVPUSH SCH (09:29)
[2020-11-01] MEDS: LOSARTAN POTASSIUM 50 MG TABLET PO SCH (09:30)
[2020-11-01] MEDS: HEPARIN NA (PORCINE) 5,000 UNITS/ML 1ML VIAL SQ SCH (09:36)
[2020-11-01] MEDS: POTASSIUM CHLORIDE ORAL LIQUID 20 MEQ/15 ML PO SCH (09:36)
== END 2020-11-01 16:25 | disposition home or self-care (01) | DRG 392 ==
LOC: JER 11:19 → JERBED 16:36 → J6S 10-30 13:30
PROVIDERS: ADMIT Family Medicine; ATTEND Family Medicine
PROC: 0DJD8ZZ Inspection of Lower Intestinal Tract, Via Natural or Artificial Opening Endoscopic (ICD-10-PCS; principal; 2020-10-31)
DX: R10.84 Generalized abdominal pain (principal); R19.7 Diarrhea, unspecified; I10 Essential (primary) hypertension; E78.5 Hyperlipidemia, unspecified; K57.90 Diverticulosis of intestine, part unspecified, without perforation or abscess without bleeding; K64.8 Other hemorrhoids; E53.8 Deficiency of other specified B group vitamins; E03.9 Hypothyroidism, unspecified; R63.0 Anorexia
CPT/HCPCS: 36415; 71046-TC-FY; 74177-TC; 80048; 80053; 81003; 82550; 82607; 82728; 83540; 83550; 83605; 83690; 83735; 84439; 84443; 84484; 85025; 85027; 85610; 85730; 86850; 86900; 86901; 87086; 93005; 93010; 99285-25; C9803; J0131; J1644; U0003

== ENCOUNTER 2021-04-02 14:07 | Observation (INO) | payer BC ==
[2021-04-02 14:24] VITALS: BMI 29.2
[2021-04-02 17:12] LABS: CHLORIDE 104 mmol/L (98-107); SODIUM 141 mmol/L (136-145)
[2021-04-02 17:14] LABS: CALCIUM 8.6 mg/dL (8.5-10.1)
[2021-04-02 17:15] LABS: ALBUMIN 3.8 g/dl (3.4-5.0); ANION GAP 5 MMOL/L (8-16); BLOOD UREA NITROGEN 15.9 mg/dL (7-18); CO2 32 mmol/L (21-32); GLUCOSE,RANDOM 83 mg/dL (74-106)
[2021-04-02 17:18] LABS: CREATININE 1.1 mg/dL (0.55-1.3); SGOT/AST 21 U/L (15-37); SGPT/ALT 28 U/L (13-61)
[2021-04-02 17:20] LABS: BILIRUBIN,TOTAL 0.7 mg/dL (0.2-1); TOT PROT 6.7 g/dl (6.4-8.2)
[2021-04-02 17:21] LABS: ALK PHOS 63 U/L (45-117)
[2021-04-02 17:23] LABS: BASO % 0.5 % (0-2.0); EOS % 0.9 % (0-4.5); HEMATOCRIT 32.4 % (32.4-45.2); HEMOGLOBIN 10.7 GM/dL (10.7-15.3); LYMPH % 26.6 % (8-40); MCH 30.9 pg (25.7-33.7); MEAN CELL VOLUME 93.7 fl (80-96); MEAN PLT VOLUME 9.7 fl (7.5-11.1); MONO % 11.4 % (3.8-10.2); NEUT % 60.6 % (42.8-82.8); PLATELET COUNT 148 K/MM3 (134-434); RBC 3.45 M/mm3 (3.60-5.2); RDW 14.7 % (11.6-15.6); WHITE BLOOD COUNT 7.3 K/mm3 (4.0-10.0)
[2021-04-02 17:29] LABS: N-TERMINAL BNP 985.7 pg/ml (5-450)
[2021-04-03] MEDS: HEPARIN NA (PORCINE) 5,000 UNITS/ML 1ML VIAL SQ SCH ×3 (02:27→21:14)
[2021-04-03] MEDS: LEVOTHYROXINE NA 25 MCG TABLET (FP) PO SCH (06:30)
[2021-04-03 06:52] LABS: BASO % 0.6 % (0-2.0); EOS % 1.3 % (0-4.5); HEMATOCRIT 31.8 % (32.4-45.2); HEMOGLOBIN 10.6 GM/dL (10.7-15.3); LYMPH % 28.4 % (8-40); MCH 30.8 pg (25.7-33.7); MCHC 33.2 g/dl (32.0-36.0); MEAN CELL VOLUME 92.6 fl (80-96); MONO % 10.6 % (3.8-10.2); NEUT % 59.1 % (42.8-82.8); PLATELET COUNT 140 K/MM3 (134-434); RBC 3.44 M/mm3 (3.60-5.2); RDW 14.3 % (11.6-15.6); WHITE BLOOD COUNT 7.4 K/mm3 (4.0-10.0)
[2021-04-03 07:16] LABS: CHLORIDE 103 mmol/L (98-107); SODIUM 138 mmol/L (136-145)
[2021-04-03 07:19] LABS: ALBUMIN 3.4 g/dl (3.4-5.0); ANION GAP 4 MMOL/L (8-16); CALCIUM 8.5 mg/dL (8.5-10.1); CO2 31 mmol/L (21-32); GLUCOSE,RANDOM 86 mg/dL (74-106); MAGNESIUM 1.9 mg/dL (1.8-2.4)
[2021-04-03 07:22] LABS: CHOLESTEROL 152 mg/dL (50-200); SGOT/AST 18 U/L (15-37); SGPT/ALT 22 U/L (13-61); TRIGLYCERIDES 55 mg/dL (0-150)
[2021-04-03 07:23] LABS: LDL CHOLESTEROL (ONLY SJRH) 52 mg/dL (5-100)
[2021-04-03 07:24] LABS: BILIRUBIN,TOTAL 0.9 mg/dL (0.2-1); HDL CHOLESTEROL 88 mg/dL (40-60); TOT PROT 6.3 g/dl (6.4-8.2)
[2021-04-03 07:25] LABS: ALK PHOS 59 U/L (45-117)
[2021-04-03] MEDS ORDERED: FUROSEMIDE 40 MG/4 ML INJECTABLE VIAL IVPUSH ONE (12:00)
[2021-04-04] MEDS: LEVOTHYROXINE NA 25 MCG TABLET (FP) PO SCH (06:01)
[2021-04-04] MEDS ORDERED: POLYETHYLENE GLYCOL 3350 119 GM BTL PO PRN (09:05)
[2021-04-04] MEDS ORDERED: ACETAMINOPHEN 325 MG TABLET (FP) PO PRN (09:06)
[2021-04-04] MEDS: CHOLECALCIFEROL (VIT D3) 1,000 UNIT (25 MCG) TABLET PO SCH (10:12)
[2021-04-04] MEDS: FUROSEMIDE 40 MG TABLET (FP) PO SCH (10:12)
[2021-04-04] MEDS: LOSARTAN POTASSIUM 50 MG TABLET PO SCH (10:12)
[2021-04-04] MEDS: HEPARIN NA (PORCINE) 5,000 UNITS/ML 1ML VIAL SQ SCH ×2 (10:12→21:01)
[2021-04-04] MEDS: ASPIRIN 81 MG CHEWABLE TABLETS PO SCH (10:12)
[2021-04-04] MEDS: POTASSIUM CHLORIDE TABS 10 MEQ TABLET.ER (FP) PO SCH (10:13)
[2021-04-04] MEDS: CALCIUM 500MG/VIT-D 200 UNITS COMBO TABLET (FP) PO SCH (12:08)
[2021-04-04] MEDS ORDERED: FLUDROCORTISONE ACETATE 0.1 MG TABLET (FP) PO SCH (22:00)
[2021-04-04] MEDS ORDERED: ATORVASTATIN CA 10 MG TABLET (FP) PO SCH (22:00)
[2021-04-04 23:50] LABS: PH,URINE 6.5 (5.0-8.0); URINE APPEARANCE CLEAR; URINE BILIRUBIN NEGATIVE (NEGATIVE); URINE COLOR YELLOW; URINE GLUCOSE (UA) NEGATIVE (NEGATIVE); URINE KETONE NEGATIVE (NEGATIVE); URINE LEUK ESTERASE NEGATIVE (NEGATIVE); URINE NITRITE NEGATIVE (NEGATIVE); URINE PROTEIN NEGATIVE (NEGATIVE)
[2021-04-05] MEDS: LEVOTHYROXINE NA 25 MCG TABLET (FP) PO SCH (06:00)
[2021-04-05 07:44] LABS: BLOOD UREA NITROGEN 16.1 mg/dL (7-18); CALCIUM 8.4 mg/dL (8.5-10.1)
[2021-04-05 07:47] LABS: CREATININE 1.2 mg/dL (0.55-1.3)
[2021-04-05 09:20] VITALS: BP 162/69; PULSE 76; TEMP 97.9
[2021-04-05] MEDS: HEPARIN NA (PORCINE) 5,000 UNITS/ML 1ML VIAL SQ SCH (09:36)
[2021-04-05] MEDS: LOSARTAN POTASSIUM 50 MG TABLET PO SCH (09:36)
[2021-04-05] MEDS: ASPIRIN 81 MG CHEWABLE TABLETS PO SCH (09:36)
[2021-04-05] MEDS: CALCIUM 500MG/VIT-D 200 UNITS COMBO TABLET (FP) PO SCH (09:36)
[2021-04-05] MEDS: POTASSIUM CHLORIDE TABS 10 MEQ TABLET.ER (FP) PO SCH (09:36)
[2021-04-05] MEDS: FUROSEMIDE 40 MG TABLET (FP) PO SCH (09:36)
[2021-04-05] MEDS: CHOLECALCIFEROL (VIT D3) 1,000 UNIT (25 MCG) TABLET PO SCH (09:37)
== END 2021-04-05 15:00 | disposition home or self-care (01) ==
LOC: JER 14:07 → INTOOBSV 18:59 → JERBED 18:59 → J4W 04-03 01:27
PROVIDERS: ADMIT Hospitalist; ATTEND Family Medicine
PROC: 3E023GC Introduction of Other Therapeutic Substance into Muscle, Percutaneous Approach (ICD-10-PCS; principal; 2021-04-02)
PROC: 3E033GC Introduction of Other Therapeutic Substance into Peripheral Vein, Percutaneous Approach (ICD-10-PCS; 2021-04-02)
DX: I11.0 Hypertensive heart disease with heart failure (principal); E78.00 Pure hypercholesterolemia, unspecified; R06.00 Dyspnea, unspecified; I24.9 Acute ischemic heart disease, unspecified; I11.9 Hypertensive heart disease without heart failure; E78.5 Hyperlipidemia, unspecified; E03.9 Hypothyroidism, unspecified; R06.02 Shortness of breath; R10.9 Unspecified abdominal pain; Z20.822 Contact with and (suspected) exposure to COVID-19; Z29.9 Encounter for prophylactic measures, unspecified
CPT/HCPCS: 36415; 71046-TC-FY; 71260-TC; 80048; 80053; 80061; 81003; 82533; 82550; 82962; 83721; 83735; 83880; 84244; 84443; 84484; 85025; 93005; 93010; 93306-TC; 96372; 96374; 99285-25; C9803; G0378; J1644; Q9967; U0003; U0005

== ENCOUNTER 2023-02-13 17:20 | Emergency (ER) | payer BC, OTHER ==
[2023-02-13 17:25] VITALS: BP 170/78; PULSE 76; RESP 18; TEMP 98; BMI 27.2
[2023-02-13] MEDS ORDERED: MAG HYDROX/AL HYDROX/SIMETH 30 ML UNIT-DOSE CUP PO ONE (19:22)
[2023-02-13] MEDS ORDERED: IBUPROFEN 400 MG TABLET (FP) PO ONE ×2 (19:22→19:26)
[2023-02-13] MEDS ORDERED: ACETAMINOPHEN 500 MG TABLET (FP) PO ONE (19:22)
[2023-02-13] MEDS ORDERED: ACETAMINOPHEN 500 MG TABLET (FP) ONE (19:27)
[2023-02-13] MEDS ORDERED: MAG HYDROX/AL HYDROX/SIMETH 30 ML UNIT-DOSE CUP ONE (19:27)
== END 2023-02-13 19:35 | disposition home or self-care (01) ==
LOC: JERFT 17:20 → JER 17:20 → JERFT 19:35
DX: M79.642 Pain in left hand (principal)
CPT/HCPCS: 73110-TC-LT-FY; 73130-TC-LT-FY; 99283-25